=== PATIENT | male | born 1945 | race Caucasian/White ===

== ENCOUNTER 2016-11-18 14:18 | Emergency (ER) | payer MEDICARE ==
[2016-11-18 14:30] VITALS: TEMP 98.4
[2016-11-18 16:46] LABS: Basophils % (A) 0 %; CH 31.3; CHCM 33.8; Eosinophils # (A) 0.2 k/uL (0-0.7); Eosinophils % (A) 2 %; HCT 54.5 % (39.0-53.0); HGB 18.1 gm/dL (13.0-17.5); Luc # (Auto) 0.25; Luc % (Auto) 2; Lymphocytes # (A) 1.1 k/uL (1.0-4.8); Lymphocytes % (A) 10 %; MCHC 33.3 g/dL (31.0-37.0); MCV 93.1 fL (80.0-100.0); Mean Platelet Volume 7.3; Monocytes # (A) 0.8 k/uL (0-1.0); Monocytes % (A) 7 %; Neutrophils # (A) 8.6 k/uL (1.3-7.7); Neutrophils % (A) 79 %; RBC 5.85 m/uL (4.30-5.90); RDW 15.4 % (11.5-15.5); WBC 10.9 k/uL (3.8-10.6); WBC (Perox) 10.87
--- NOTE | 2016-11-18 16:50 | ED ---
Extremity Problem HPI - General Chief complaint: Extremity Problem,Nontraumatic Stated complaint: Swollen Rt Leg Time Seen by Provider: 11/18/16 15:59 Source: patient, RN notes reviewed Mode of arrival: ambulatory Limitations: no limitations - History of Present Illness Initial comments: 70-year-old male presents emergency Department with chief complaint of right leg pain and swelling. Patient states that he bumped it on an object few days ago but he said some increased swelling and slight brawny redness to his lower leg. Patient states he has minimal discomfort no history of CHF does not take any current water pills. Patient states she is worried about possible infection or blood clot. He states he's been traveling back and forth from [facility] and has had some prolonged sitting. Patient denies chest pain, shortness breath, fever, chills, paresthesias - Related Data Home Medications Medication Instructions Recorded Confirmed Allopurinol [Zyloprim] 100 mg PO DAILY 11/10/13 11/18/16 Etanercept [Enbrel] 50 mg SQ VILLAFUERTE 11/10/13 11/18/16 Losartan-Hctz 50-12.5 mg [Hyzaar 1 tab PO BID 11/10/13 11/18/16 50-12.5] Tamsulosin HCl [Flomax] 0.4 mg PO BID 11/10/13 11/18/16 Metoprolol Succinate [Toprol XL] 50 mg PO DAILY 11/18/16 11/18/16 Warfarin Sodium [Coumadin] 10 mg PO FR 11/18/16 11/18/16 Warfarin [Coumadin] 5 mg PO SUMOTUWETHSA 11/18/16 11/18/16 Previous Rx's Medication Instructions Recorded Cephalexin [Keflex] 500 mg PO Q6HR #28 cap 11/18/16 Allergies Allergy/AdvReac Type Severity Reaction Status Date / Time Penicillins Allergy Rash/Hives Verified 11/18/16 16:28 Review of Systems ROS Statement: Those systems with pertinent positive or pertinent negative responses have been documented in the HPI. ROS Other: All systems not noted in ROS Statement are negative. Past Medical History Past Medical History: Hyperlipidemia, Hypertension, Osteoarthritis (OA), Prostate Disorder, Rheumatoid Arthritis (RA), Sleep Apnea/CPAP/BIPAP Additional Past Medical History / Comment(s): heart murmer History of Any Multi-Drug Resistant Organisms: None Reported Past Surgical History: Appendectomy, Cardiac Valve Replacement, Heart Catheterization, Joint Replacement, Orthopedic Surgery Additional Past Surgical History / Comment(s): naldo knee replacement, naldo shoulder rotator cuff, naldo carpal tunnel, naldo endarterectomy, left ankle fusion, Past Anesthesia/Blood Transfusion Reactions: Previous Problems w/ Anesthesia Additional Past Anesthesia/Blood Transfusion Reaction / Comment(s): diff intubation Past Psychological History: No Psychological Hx Reported Smoking Status: Former smoker Past Alcohol Use History: None Reported Past Drug Use History: None Reported - Past Family History Mother Family Medical History: Cancer Brother(s) Family Medical History: Cancer Sister(s) Family Medical History: Cancer General Exam Limitations: no limitations General appearance: alert, in no apparent distress Respiratory exam: Present: normal lung sounds bilaterally. Absent: respiratory distress, wheezes, rales, rhonchi, stridor Cardiovascular Exam: Present: regular rate, normal rhythm, normal heart sounds. Absent: systolic murmur, diastolic murmur, rubs, gallop, clicks Extremities exam: Present: other (Right lower extremity there is a brawny slightly erythematous area noted pedal pulses equal bilaterally patient has no calf tenderness) Skin exam: Present: warm, dry, intact, normal color. Absent: rash Course Vital Signs 11/18/16 14:27 Temperature 98.4 F Pulse Rate 68 Respiratory 18 Rate Blood Pressure 140/69 O2 Sat by Pulse 98 Oximetry Medical Decision Making - Medical Decision Making 68-year-old male presented for right leg swelling, redness. There is very minimal warmth though patient is concerned about infection. She did have an injury to it. There is no evidence of acute DVT. Patient was placed on short course of antibiotics at this time advised to elevate and reduce salt intake. Return parameters were discussed. - Lab Data Result diagrams: 11/18/16 16:35 11/18/16 16:35 Lab Results 11/18/16 11/18/16 11/18/16 Range/Units 16:35 16:35 16:35 WBC 10.9 H (3.8-10.6) k/uL RBC 5.85 (4.30-5.90) m/uL Hgb 18.1 H (13.0-17.5) gm/dL Hct 54.5 H (39.0-53.0) % MCV 93.1 (80.0-100.0) fL MCH 31.0 (25.0-35.0) pg MCHC 33.3 (31.0-37.0) g/dL RDW 15.4 (11.5-15.5) % Plt Count 152 (150-450) k/uL Neutrophils % 79 % Lymphocytes % 10 % Monocytes % 7 % Eosinophils % 2 % Basophils % 0 % Neutrophils # 8.6 H (1.3-7.7) k/uL Lymphocytes # 1.1 (1.0-4.8) k/uL Monocytes # 0.8 (0-1.0) k/uL Eosinophils # 0.2 (0-0.7) k/uL Basophils # 0.0 (0-0.2) k/uL Sodium 139 (137-145) mmol/L Potassium 4.6 (3.5-5.1) mmol/L Chloride 106 (98-107) mmol/L Carbon Dioxide 22 (22-30) mmol/L Anion Gap 11 mmol/L BUN 32 H (9-20) mg/dL Creatinine 1.10 (0.66-1.25) mg/dL Est GFR (MDRD) Af Amer >60 (>60 ml/min/1.73 sqM) Est GFR (MDRD) Non-Af >60 (>60 ml/min/1.73 sqM) Glucose 126 H (74-99) mg/dL Calcium 9.8 (8.4-10.2) mg/dL NT-Pro-B Natriuret Pep 204 pg/mL Disposition Clinical Impression: Cellulitis of right leg, Right leg swelling Disposition: HOME SELF-CARE Condition: Stable Instructions: Cellulitis (ED) Additional Instructions: Please return to the Emergency Department if symptoms worsen or any other concerns. Prescriptions: Cephalexin [Keflex] 500 mg PO Q6HR #28 cap Referrals: Andrea Phan MD [Primary Care Provider] - 1-2 days Time of Disposition: 17:56
[2016-11-18 16:55] LABS: Anion Gap 11 mmol/L; Blood Urea Nitrogen 32 mg/dL (9-20); Calcium 9.8 mg/dL (8.4-10.2); Carbon Dioxide 22 mmol/L (22-30); Chloride 106 mmol/L (98-107); Glucose 126 mg/dL (74-99); Non-African American GFR(MDRD) >60 (>60 ml/min/1.73 sqM); Potassium 4.6 mmol/L (3.5-5.1); Sodium 139 mmol/L (137-145)
--- NOTE | 2016-11-18 17:44 | US ---
EXAMINATION TYPE: US venous doppler duplex LE RT DATE OF EXAM: 11/18/2016 5:35 PM COMPARISON: Prior in PACS CLINICAL HISTORY: Swelluing right leg. Takes blood thinners. No history of DVT SIDE PERFORMED: Right TECHNIQUE: The lower extremity deep venous system is examined utilizing real time linear array sonog raj with graded compression, doppler sonography and color-flow sonography. VESSELS IMAGED: External Iliac Vein (EIV) Common Femoral Vein Deep Femoral Vein Greater Saphenous Vein * Femoral Vein Popliteal Vein Small Saphenous Vein * Proximal Calf Veins (* superficial vessels) Right Leg: Negative for DVT IMPRESSION: Negative exam. No evidence of deep venous thrombosis in the right leg.
[2016-11-18 18:06] VITALS: BP 164/79; PULSE 60; RESP 16
== END 2016-11-18 18:05 | disposition home or self-care (01) ==
LOC: EC 14:18
DX: L03.115 Cellulitis of right lower limb (principal); M79.89 Other specified soft tissue disorders; E78.5 Hyperlipidemia, unspecified; I10 Essential (primary) hypertension; M19.90 Unspecified osteoarthritis, unspecified site; M06.9 Rheumatoid arthritis, unspecified; N42.9 Disorder of prostate, unspecified; Z87.891 Personal history of nicotine dependence; Z79.01 Long term (current) use of anticoagulants; Z79.899 Other long term (current) drug therapy; Z88.0 Allergy status to penicillin
CPT/HCPCS: 36415; 80048; 83880; 85025; 99284

== ENCOUNTER → 2019-09-01 | Outpatient (CLI) | payer MEDICARE ==
[2019-09-01 10:21] LABS: HCT 48.1 % (39.0-53.0); HGB 15.8 gm/dL (13.0-17.5); MCH 30.3 pg (25.0-35.0); MCHC 32.9 g/dL (31.0-37.0); MCV 92.3 fL (80.0-100.0); Mean Platelet Volume 7.3; Platelet Count 171 k/uL (150-450); Potassium 4.5 mmol/L (3.5-5.1); RBC 5.21 m/uL (4.30-5.90); RDW 14.8 % (11.5-15.5); WBC 5.6 k/uL (3.8-10.6)
== END | disposition home or self-care (01) ==
LOC: LABPAT 09:19
PROVIDERS: ATTEND Internal Medicine Interventional Cardiology
DX: Z01.818 Encounter for other preprocedural examination (principal); R94.39 Abnormal result of other cardiovascular function study
CPT/HCPCS: 80051; 82565; 84520; 85027; 87635

== ENCOUNTER 2019-09-03 07:58 | Day surgery (SDC) | payer MEDICARE ==
[2019-09-02 08:39] VITALS: BMI 39.6
[~2019-09-03 07:58] MED LIST: ALPRAZolam 0.25 MG TAB PO PRN; ALPRAZolam 0.5 MG TAB PO PRN; ASPIRIN 325 MG TAB PO ONE; ATORVASTATIN 80 MG TAB PO ONE; NITROGLYCERIN SL TABS 0.4 MG TAB SUBLINGUAL PRN; SODIUM CHLORIDE 0.9% 1,000 ML in EMPTY BAG 1 BAG IV ONE
[2019-09-03 08:37] VITALS: RESP 16; TEMP 98.1
[2019-09-03] MEDS ORDERED: SODIUM CHLORIDE 0.9% 1,000 ML IV ONE (08:37)
[2019-09-03 09:13] LABS: INR 1.2 (<1.2); Prothrombin Time 12.4 sec (9.0-12.0)
[2019-09-03] MEDS ORDERED: MIDAZOLAM 2 MG/2 ML VIAL IV ONE (09:21)
[2019-09-03] MEDS ORDERED: LIDOCAINE 1% INJ 10MG/ML (20 ML MDV) SQ ONE (09:25)
[2019-09-03] MEDS: VERAPAMIL SYRINGE (5 MG/10 ML) INTRAARTER ONE ×2 (09:30→09:57)
[2019-09-03] MEDS ORDERED: HEPARIN SODIUM 1,000 UN/ML (10ML VL) IV ONE (09:34)
[2019-09-03] MEDS ORDERED: IOPAMIDOL-370 100ML BTL INJ ONE ×2 (09:50→09:57)
[2019-09-03] MEDS ORDERED: WARFARIN 2 MG TAB PO STA (10:27)
[2019-09-03] MEDS ORDERED: SODIUM CHLORIDE 0.9% 1,000 ML IV SCH (10:30)
--- NOTE | 2019-09-03 11:20 | CC ---
CARDIAC CATHETERIZATION REPORT DATE OF SERVICE: 09/03/2019. PROCEDURE PERFORMED: Coronary angiography. PERFORMED BY: Dr. Dae Hernandez. SEDATION: Moderate conscious sedation time was 37 minutes. Patient was administered Versed. His oxygen saturation, hemodynamics and EKG were monitored closely. CLINICAL INFORMATION: Mr. Jonh Worthington is a 73-year-old morbidly obese gentleman with history of hypertension, hyperlipidemia, and bilateral carotid endarterectomy. In 2013, he underwent aortic valve replacement for aortic stenosis at [facility]. He is going for a back surgery and prior to that, Lexiscan stress test revealed inferolateral moderate-sized defect suggestive of ischemia. Therefore, he was advised coronary angiography after due discussion regarding risks, benefits, and options. PROCEDURE NOTE: Under local anesthesia and strict precautions, a 6-Upper Sorbian sheath was placed in the right radial artery. I used a JR4 and JL3.5 catheter and with this I performed coronary angiography. Because I had difficulty getting into the right coronary artery, which was a small nondominant vessel, I tried a Johnny as well as an AR1 catheter without much success. LV pressures were not obtained since patient has a bioprosthetic aortic valve. The patient tolerated procedure well. The sheath was taken out and TR band applied as per protocol with good hemostasis. Saturation of the fingers of the right hand was more than 93%. The patient was sent to the room in stable condition. He will be discharged later on today. CORONARY ANGIOGRAPHY FINDINGS: RIGHT CORONARY ARTERY: This is a nondominant vessel with a limited amount of myocardium being supplied by it. I have had some subselective images, but no selective injection was performed. This vessel comes from somewhat of an ectopic location and I did not do a selective angiogram, but the vessel is small, inconsequential with limited amount of myocardium being supplied by it. LEFT MAIN CORONARY ARTERY: Short patent vessel. No significant disease. Bifurcates into LAD and circumflex. LEFT ANTERIOR DESCENDING CORONARY ARTERY: Good caliber vessel, gives off 2 good-sized diagonal branches and then runs all the way to the apex supplying a sizable amount of myocardium. No significant disease. Has minor irregularities throughout. LEFT POSTERIOR CIRCUMFLEX CORONARY ARTERY: This is a small obtuse marginal proximally almost like a ramus. The second obtuse marginal of a good caliber had 30 to 35% narrowing and then distally it bifurcates into PDA, PLV, and an additional smaller branch. No significant disease is noted in the circumflex system which has only minor diffuse irregularities and is a dominant system. FINAL IMPRESSION: This patient's right coronary artery is small, nondominant, was not selectively injected hyper and is inconsequential and supplies a limited amount of myocardium based on a cardiac cath from 2013. The left system has minor irregularities. No significant disease. He has a dominant circumflex. No significant disease. The LAD is free of significant disease. RECOMMENDATIONS: This patient can go ahead with the proposed back surgery. He still remains at a high risk given his morbid obesity, hypertension, previous aortic valve replacement, but he does not have any significant obstructive CAD. Advised cautious fluid administration and optimal BP control perioperatively. He can go ahead with the operation as scheduled. I will see him in the office next week. He will be discharged later on today. MMODL / IJN: [id number] /
[2019-09-03 17:11] VITALS: PULSE 60
[2019-09-03 17:13] VITALS: BP 142/68
== END 2019-09-03 16:08 | disposition home or self-care (01) ==
LOC: CATHCVL 07:58
PROVIDERS: ATTEND Internal Medicine Interventional Cardiology
DX: I20.0 Unstable angina (principal); R94.39 Abnormal result of other cardiovascular function study; I10 Essential (primary) hypertension; I48.91 Unspecified atrial fibrillation; G47.33 Obstructive sleep apnea (adult) (pediatric); E78.5 Hyperlipidemia, unspecified; E78.00 Pure hypercholesterolemia, unspecified; E66.01 Morbid (severe) obesity due to excess calories; F17.210 Nicotine dependence, cigarettes, uncomplicated; M48.061 Spinal stenosis, lumbar region without neurogenic claudication; M06.9 Rheumatoid arthritis, unspecified; Z95.2 Presence of prosthetic heart valve; Z79.01 Long term (current) use of anticoagulants; Z79.899 Other long term (current) drug therapy; Z68.41 Body mass index [BMI] 40.0-44.9, adult; Z88.0 Allergy status to penicillin; Z88.1 Allergy status to other antibiotic agents; Z82.49 Family history of ischemic heart disease and other diseases of the circulatory system
CPT/HCPCS: 93454; 85610; C1769; C1894; J2250; J2001; J1644; Q9967

== ENCOUNTER → 2021-09-12 | Outpatient (CLI) | payer MEDICARE | END | disposition home or self-care (01) | LOC: LABWHC1 09:47 | PROVIDERS: ATTEND Internal Medicine | DX: Z20.822 Contact with and (suspected) exposure to COVID-19 (principal); J02.9 Acute pharyngitis, unspecified | CPT/HCPCS: U0003; C9803 ==

== ENCOUNTER → 2022-01-30 | Outpatient (CLI) | payer MEDICARE ==
--- NOTE | 2022-01-31 14:13 | MR ---
EXAMINATION TYPE: MR Prostate wo/w con DATE OF EXAM: 01/30/2022 7:55 AM COMPARISON: None. CLINICAL INDICATION:Male, 76 years old with history of R97.20 elevated PSA; TECHNIQUE: Multi-planar, multi-sequence imaging of the pelvis is performed prior to and following the uncomplicated administration of bolus intravenous gadolinium. CONTRAST: 13 Gadavist Interpretive Criteria: PI-RADS v2.1 SERUM PSA: 6.2 on 01/23/2022 SURGICAL PATHOLOGY: No data available. FINDINGS: Prostatic dimensions: 6.0 x 5.3 x 4.6 cm. Ellipsoid Volume:76.59 (PSA density=0.08 ng/mL/mL) CENTRAL GLAND (Central and Transition Zones/CZ+TZ): Multiple bilateral, heterogenous appearing hypertrophic stromal nodules, without suspicious lesion. M edian lobe hypertrophy with protrusion into the base of the bladder. (PI-RADS 2) PERIPHERAL ZONE (PZ): Bilateral linear, indistinct wedgelike areas of low ADC, and low T2 signal, No evidence of masslike a bnormality, or localized perfusional hypervascularity, to further suggest a focus of clinically signi ficant prostate cancer. (PI-RADS 2) SEMINAL VESICLES (SV): Symmetric, areas of high T1 signal within the left seminal vesicle likely secondary from hemorrhage a nd/or proteinaceous contents. PERIPROSTATIC TISSUES: Unremarkable. LYMPH NODES: No enlarged pelvic lymph node. Nonenlarged right epicardial lymph node measuring up to 9 mm in short axis. REMAINING PELVIS: Mild urinary bladder wall thickening anteriorly bilaterally likely secondary to partial underdistenti on. Trabeculated bladder hess with bladder diverticula most pronounced on the left. No abnormal free or organized intrapelvic fluid collection. No pathologic bowel dilation or mural thickening. OSSEOUS STRUCTURES: No suspicious osseous abnormality. Right perilabral cysts along the right superior acetabulum likely secondary to underlying labral tear . Partially visualized susceptibility artifact from fixation hardware IMPRESSION: 1. No specific features for high-risk prostate cancer. Maximum PI-RADS score: 2. 2. Moderate BPH, estimated gland volume 79 mL. 3. No suspicious osseous lesion. No lymphadenopathy. 4. Trabeculations of the bladder wall and bladder diverticula likely secondary to chronic bladder out let obstruction.
== END | disposition home or self-care (01) ==
LOC: RADMRIMAIN 06:31
PROVIDERS: ATTEND Urology
DX: N40.0 Benign prostatic hyperplasia without lower urinary tract symptoms (principal); N32.89 Other specified disorders of bladder
CPT/HCPCS: 72197; A9585

== ENCOUNTER 2022-08-19 08:40 | Day surgery (SDC) | payer MEDICARE ==
[2022-08-19 09:04] VITALS: TEMP 98.4
[2022-08-19] MEDS ORDERED: LACTATED RINGERS 1,000 ML IV ONE (09:15)
[2022-08-19] MEDS ORDERED: LIDOCAINE 1% (10MG/ML) FOR IV START INTRADERMA ONE (09:15)
[2022-08-19 09:39] LABS: INR 2.6 (<1.2); Prothrombin Time 25.1 sec (9.0-12.0)
[2022-08-19 09:46] LABS: Calcium 9.6 mg/dL (8.4-10.2); Potassium 4.6 mmol/L (3.5-5.1)
[2022-08-19] MEDS ORDERED: METOPROLOL TARTRATE 5 MG/5 ML VIAL IVP ONE (10:28)
[2022-08-19] MEDS ORDERED: PROPOFOL 10 MG/ML 20 ML VIAL IV ONE (10:28)
[2022-08-19] MEDS ORDERED: LIDOCAINE 2% INJ 20 MG/ML (2 ML VIAL) ONE (10:28)
--- NOTE | 2022-08-19 11:22 | CE ---
CARDIAC ELECTROPHYSIOLOGY REPORT PROCEDURE PERFORMED: Electrical cardioversion. INDICATION: Persistent atrial fibrillation. CLINICAL INFORMATION: Mr. Jonh Worthington is a 76-year-old obese gentleman with history of hypertension, hyperlipidemia, and aortic valve stenosis, status post surgical replacement performed in 2013 and then developed some pannus on the bioprosthetic valve and has been on Coumadin. He also has moderate pulmonary hypertension as well. He went into atrial fibrillation and has been having episodes of increasing shortness of breath. I placed him on amiodarone 200 mg b.i.d. and advised electrical cardioversion. I also switched him from simvastatin to Lipitor. He was brought in for the procedure electively. PROCEDURE NOTE: Under the influence of [id number]-[id number] intravenous anesthetic agent with the attendance of the anesthesiologist, a single synchronized shock was delivered with anterior and posterior patches. He converted to sinus rhythm and remained hemodynamically stable. He was slightly tachycardic and received 5 mg of Lopressor intravenously. He is hemodynamically stable and neurologically intact. This was a successful electrical cardioversion. I expect he will be discharged later on today and I will see him in the office in about a week or so. MMODL / IJN: [id number] /
[2022-08-19 11:41] VITALS: RESP 16
[2022-08-19 12:06] VITALS: BP 131/65; PULSE 89
== END 2022-08-19 12:26 | disposition home or self-care (01) ==
LOC: OR 08:40
PROVIDERS: ATTEND Internal Medicine Interventional Cardiology
DX: I48.19 Other persistent atrial fibrillation (principal)
CPT/HCPCS: 92960; 80048; 85610; J2704; J2001

== ENCOUNTER 2022-09-27 09:32 | Emergency (ER) | payer MEDICARE ==
[2022-09-27 09:42] VITALS: RESP 18; TEMP 98.2
--- NOTE | 2022-09-27 10:02 | ED ---
Extremity Problem HPI - General Chief complaint: Extremity Problem,Nontraumatic Stated complaint: R leg soreness Time Seen by Provider: 09/27/22 09:44 Source: patient Mode of arrival: ambulatory Limitations: no limitations - History of Present Illness Initial comments: Patient is an 86-year-old male with past medical history significant for A. fib on Coumadin presents to the ED with a chief complaint of leg pain/swelling. Patient states yesterday he noticed swelling, redness, pain on his right lower leg. His states that she is concerned that his blood clot. Denies chest pain, palpitations, shortness of breath. Eyes numbness or weakness of the right lower extremity. Denies any recent antibiotic use. Denies history of MRSA. Denies IVDA. Denies fever. No other complaints. - Related Data Home Medications Medication Instructions Recorded Confirmed Etanercept [Enbrel] 50 mg SQ TH 11/10/13 08/15/22 Tamsulosin HCl [Flomax] 0.4 mg PO BID 11/10/13 08/15/22 Metoprolol Succinate [Toprol XL] 75 mg PO HS 11/18/16 08/15/22 Simvastatin [Zocor] 20 mg PO HS 09/02/19 08/15/22 Warfarin [Coumadin] 2 mg PO SUMOWETHFRSA 09/02/19 08/15/22 Warfarin [Coumadin] 3 mg PO TU 09/02/19 08/15/22 hydroCHLOROthiazide [Hydrodiuril] 25 mg PO DAILY 09/02/19 08/15/22 Amiodarone [Cordarone] 200 mg PO DAILY 08/15/22 08/15/22 HYDROcodone/APAP 7.5-325MG [[place] 1 tab PO Q6HR PRN 08/15/22 08/15/22 7.5-325] Losartan Potassium 100 mg PO QAM 08/15/22 08/15/22 allopurinoL [Zyloprim] 100 mg PO DAILY 08/15/22 08/15/22 amLODIPine [Norvasc] 5 mg PO DAILY 08/15/22 08/15/22 clindamycin HCL 600 mg PO DIRECTED PRN 08/15/22 08/15/22 Previous Rx's Medication Instructions Recorded Cephalexin [Keflex] 500 mg PO Q6HR 7 Days #28 cap 06/09/23 Allergies Allergy/AdvReac Type Severity Reaction Status Date / Time Penicillins Allergy Rash/Hives Verified 09/27/22 09:42 Review of Systems ROS Statement: Those systems with pertinent positive or pertinent negative responses have been documented in the HPI. ROS Other: All systems not noted in ROS Statement are negative. Past Medical History Past Medical History: Atrial Fibrillation, Hyperlipidemia, Hypertension, Musculoskeletal Disorder, Osteoarthritis (OA), Prostate Disorder, Rheumatoid Arthritis (RA), Sleep Apnea/CPAP/BIPAP Additional Past Medical History / Comment(s): heart murmur, uses CPAP History of Any Multi-Drug Resistant Organisms: None Reported Past Surgical History: Appendectomy, Back Surgery, Cardiac Valve Replacement, Heart Catheterization, Joint Replacement, Orthopedic Surgery Additional Past Surgical History / Comment(s): naldo knee replacement, shoulder rotator cuff-unsure which side, naldo carpal tunnel, naldo carotid endarterectomy, left ankle fusion, aortic valve replacement(bovine) Past Anesthesia/Blood Transfusion Reactions: Previous Problems w/ Anesthesia Additional Past Anesthesia/Blood Transfusion Reaction / Comment(s): diff intubation-have to use small tube per spouse Past Psychological History: No Psychological Hx Reported Smoking Status: Former smoker Past Alcohol Use History: None Reported Past Drug Use History: None Reported - Past Family History Mother Family Medical History: Cancer Brother(s) Family Medical History: Cancer Sister(s) Family Medical History: Cancer General Exam Limitations: no limitations General appearance: alert, in no apparent distress Head exam: Present: atraumatic, normocephalic Eye exam: Present: normal appearance Respiratory exam: Present: normal lung sounds bilaterally Cardiovascular Exam: Present: regular rate, normal rhythm GI/Abdominal exam: Present: soft Extremities exam: Present: other (Negative Homans sign. 3+ pitting edema on the right lower extremity, 2+ of the left lower extremity. Redness, warmth, erythema extending from the bottom of the right lower leg up to the knee area and non-circumferential. DP/PT pulses 2+. Strength and sensation of naldo LE intact/equal) Neurological exam: Present: alert, oriented X3 Skin exam: Present: warm, dry Course Vital Signs 09/27/22 09/27/22 09:40 10:46 Temperature 98.2 F 98.2 F Pulse Rate 68 70 Respiratory 18 18 Rate Blood Pressure 162/81 148/82 O2 Sat by Pulse 97 95 Oximetry Medical Decision Making - Medical Decision Making Was pt. sent in by a medical professional or institution ([facility], [employer] HCM DEVELOPER, urgent care, hospital, or correction...) When possible be specific @ -No Did you speak to anyone other than the patient for history (EMS, parent, family, police, friend...)? What history was obtained from this source @ -No Did you review nursing and triage notes (agree or disagree)? Why? @ -I reviewed and agree with nursing and triage notes Were old charts reviewed (outside hosp., previous admission, EMS record, old EKG, old radiological studies, urgent care reports/EKG's, correction records)? Report findings @ -R notes reviewed showing patient on Coumadin. Differential Diagnosis (chest pain, altered mental status, abdominal pain women, abdominal pain men, vaginal bleeding, weakness, fever, dyspnea, syncope, headache, dizziness, GI bleed, back pain, seizure, CVA, palpatations, mental health, musculoskeletal)? @ -DVT, PE, MRSA, sepsis. This is not meant to be an all-inclusive list. EKG interpreted by me (3pts min.). @ -As above X-rays interpreted by me (1pt min.). @ -None done CT interpreted by me (1pt min.). @ -None done U/S interpreted by me (1pt. min.). @ -Doppler ultrasound showed no evidence of DVT. What testing was considered but not performed or refused? (CT, X-rays, U/S, labs)? Why? @ -None What meds were considered but not given or refused? Why? @ -None Did you discuss the management of the patient with other professionals (professionals i.e. , AC, [employer] HCM DEVELOPER, lab, RT, psych nurse, social sciences lecturer, senior hadoop developer, teacher, first aid officer, lining caser)? Give summary @ -No Was smoking cessation discussed for >3mins.? @ -No Was critical care preformed (if so, how long)? @ -No Were there social determinants of health that impacted care today? How? (Homelessness, low income, unemployed, alcoholism, drug addiction, tr ansportation, low edu. Level, literacy, decrease access to med. care, custodial, rehab)? @ -No Was there de-escalation of care discussed even if they declined (Discuss DNR or withdrawal of care, Hospice)? DNR status @ -No What co-morbidities impacted this encounter? (DM, HTN, Smoking, COPD, CAD, Cancer, CVA, ARF, Chemo, Hep., AIDS, mental health diagnosis, sleep apnea, morbid obesity)? @ -None Was patient admitted / discharged? Hospital course, mention meds given and route, prescriptions, significant lab abnormalities, going to OR and other pertinent info. @ -Discharge. Labs show no significant white count. Coumadin therapeutic. Ultrasound showed evidence of DVT. Pt will be covered for cellulitis with Keflex. Vital signs stable at discharge. Undiagnosed new problem with uncertain prognosis? @ -No Drug Therapy requiring intensive monitoring for toxicity (Heparin, Nitro, Insulin, Cardizem)? @ -No Were any procedures done? @ -No Diagnosis/symptom? @ -Leg swelling, cellulitis Acute, or Chronic, or Acute on Chronic? @ -Acute Uncomplicated (without systemic symptoms) or Complicated (systemic symptoms)? @ -default Side effects of treatment? @ -No Exacerbation, Progression, or Severe Exacerbation? @ -No Poses a threat to life or bodily function? How? (Chest pain, [place], AL, pneumonia, PE, COPD, DKA, ARF, appy, cholecystitis, CVA, Diverticulitis, Homicidal, Suicidal, threat to staff... and all critical care pts) @ -No - Lab Data Result diagrams: 09/27/22 10:15 09/27/22 10:15 Lab Results 09/27/22 09/27/22 09/27/22 Range/Units 10:15 10:15 10:15 WBC 8.3 (3.8-10.6) k/uL RBC 5.25 (4.30-5.90) m/uL Hgb 16.0 (13.0-17.5) gm/dL Hct 48.6 (39.0-53.0) % MCV 92.5 (80.0-100.0) fL MCH 30.4 (25.0-35.0) pg MCHC 32.9 (31.0-37.0) g/dL RDW 14.5 (11.5-15.5) % Plt Count 143 L (150-450) k/uL MPV 8.0 Neutrophils % 76 % Lymphocytes % 11 % Monocytes % 8 % Eosinophils % 2 % Basophils % 1 % Neutrophils # 6.3 (1.3-7.7) k/uL Lymphocytes # 0.9 L (1.0-4.8) k/uL Monocytes # 0.7 (0-1.0) k/uL Eosinophils # 0.2 (0-0.7) k/uL Basophils # 0.0 (0-0.2) k/uL PT 27.3 H (9.0-12.0) sec INR 2.8 H (<1.2) APTT 34.2 H (22.0-30.0) sec Sodium 138 (137-145) mmol/L Potassium 4.6 (3.5-5.1) mmol/L Chloride 106 (98-107) mmol/L Carbon Dioxide 28 (22-30) mmol/L Anion Gap 4 mmol/L BUN 25 H (9-20) mg/dL Creatinine 1.06 (0.66-1.25) mg/dL Est GFR (CKD-EPI)AfAm 78 (>60 ml/min/1.73 sqM) Est GFR (CKD-EPI)NonAf 67 (>60 ml/min/1.73 sqM) Glucose 115 H (74-99) mg/dL Plasma Lactic Acid Kirk (0.7-2.0) mmol/L Calcium 9.2 (8.4-10.2) mg/dL Total Bilirubin 1.5 H (0.2-1.3) mg/dL AST 24 (17-59) U/L ALT 15 (4-49) U/L Alkaline Phosphatase 78 (38-126) U/L Total Protein 6.3 (6.3-8.2) g/dL Albumin 3.6 (3.5-5.0) g/dL 09/27/22 Range/Units 10:15 WBC (3.8-10.6) k/uL RBC (4.30-5.90) m/uL Hgb (13.0-17.5) gm/dL Hct (39.0-53.0) % MCV (80.0-100.0) fL MCH (25.0-35.0) pg MCHC (31.0-37.0) g/dL RDW (11.5-15.5) % Plt Count (150-450) k/uL MPV Neutrophils % % Lymphocytes % % Monocytes % % Eosinophils % % Basophils % % Neutrophils # (1.3-7.7) k/uL Lymphocytes # (1.0-4.8) k/uL Monocytes # (0-1.0) k/uL Eosinophils # (0-0.7) k/uL Basophils # (0-0.2) k/uL PT (9.0-12.0) sec INR (<1.2) APTT (22.0-30.0) sec Sodium (137-145) mmol/L Potassium (3.5-5.1) mmol/L Chloride (98-107) mmol/L Carbon Dioxide (22-30) mmol/L Anion Gap mmol/L BUN (9-20) mg/dL Creatinine (0.66-1.25) mg/dL Est GFR (CKD-EPI)AfAm (>60 ml/min/1.73 sqM) Est GFR (CKD-EPI)NonAf (>60 ml/min/1.73 sqM) Glucose (74-99) mg/dL Plasma Lactic Acid Kirk 1.2 (0.7-2.0) mmol/L Calcium (8.4-10.2) mg/dL Total Bilirubin (0.2-1.3) mg/dL AST (17-59) U/L ALT (4-49) U/L Alkaline Phosphatase (38-126) U/L Total Protein (6.3-8.2) g/dL Albumin (3.5-5.0) g/dL Disposition Clinical Impression: Cellulitis Disposition: HOME SELF-CARE Condition: Good Additional Instructions: Please return to the Emergency Department if symptoms worsen or any other concerns. Prescriptions: Cephalexin [Keflex] 500 mg PO Q6HR 7 Days #28 cap Is patient prescribed a controlled substance at d/c from ED?: No Referrals: Derik Lemos MD [Primary Care Provider] - 1-2 days Decision Time: 11:20
[2022-09-27 10:35] LABS: INR 2.8 (<1.2); Partial Thromboplastin Time 34.2 sec (22.0-30.0); Prothrombin Time 27.3 sec (9.0-12.0)
[2022-09-27 10:37] LABS: ALT 15 U/L (4-49); AST 24 U/L (17-59); African American GFR (CKD) 78 (>60 ml/min/1.73 sqM); Albumin 3.6 g/dL (3.5-5.0); Alkaline Phosphatase 78 U/L (38-126); Anion Gap 4 mmol/L; Blood Urea Nitrogen 25 mg/dL (9-20); Calcium 9.2 mg/dL (8.4-10.2); Carbon Dioxide 28 mmol/L (22-30); Chloride 106 mmol/L (98-107); Glucose 115 mg/dL (74-99); Non-African American GFR(CKD) 67 (>60 ml/min/1.73 sqM); Potassium 4.6 mmol/L (3.5-5.1); Sodium 138 mmol/L (137-145); Total Bilirubin 1.5 mg/dL (0.2-1.3); Total Protein 6.3 g/dL (6.3-8.2)
[2022-09-27 10:49] LABS: Basophils % (A) 1 %; Eosinophils # (A) 0.2 k/uL (0-0.7); Eosinophils % (A) 2 %; HCT 48.6 % (39.0-53.0); Lymphocytes # (A) 0.9 k/uL (1.0-4.8); Lymphocytes % (A) 11 %; MCH 30.4 pg (25.0-35.0); MCHC 32.9 g/dL (31.0-37.0); MCV 92.5 fL (80.0-100.0); Monocytes # (A) 0.7 k/uL (0-1.0); Monocytes % (A) 8 %; Neutrophils # (A) 6.3 k/uL (1.3-7.7); Neutrophils % (A) 76 %; Platelet Count 143 k/uL (150-450); RBC 5.25 m/uL (4.30-5.90); RDW 14.5 % (11.5-15.5); WBC 8.3 k/uL (3.8-10.6)
--- NOTE | 2022-09-27 11:03 | US ---
EXAMINATION TYPE: US venous doppler duplex LE RT DATE OF EXAM: 09/27/2022 10:46 AM COMPARISON: US 2017 CLINICAL INDICATION: Male, 76 years old with history of pain; Right leg pain and swelling, patient on blood thinners SIDE PERFORMED: Right TECHNIQUE: The lower extremity deep venous system is examined utilizing real time linear array sonog raj with graded compression, doppler sonography and color-flow sonography. VESSELS IMAGED: Common Femoral Vein Deep Femoral Vein Greater Saphenous Vein * Femoral Vein Popliteal Vein Small Saphenous Vein * Proximal Calf Veins (* superficial vessels) Right Leg: Appears negative for DVT IMPRESSION: No evidence for DVT within the right lower extremity imaged from the groin to the upper calf.
[2022-09-27 11:46] VITALS: BP 155/84; PULSE 72
== END 2022-09-27 11:54 | disposition home or self-care (01) ==
LOC: EC 09:32
DX: L03.115 Cellulitis of right lower limb (principal); E78.5 Hyperlipidemia, unspecified; I10 Essential (primary) hypertension; I48.91 Unspecified atrial fibrillation; M06.9 Rheumatoid arthritis, unspecified; M19.90 Unspecified osteoarthritis, unspecified site; Z87.891 Personal history of nicotine dependence; Z88.0 Allergy status to penicillin; Z79.01 Long term (current) use of anticoagulants; Z79.899 Other long term (current) drug therapy
CPT/HCPCS: 36415; 80053; 83605; 85025; 85610; 85730; 87040; 99284

== ENCOUNTER 2022-11-07 13:28 | Emergency (ER) | payer MEDICARE ==
[2022-11-07 13:40] VITALS: TEMP 98.3
--- NOTE | 2022-11-07 14:17 | ED ---
Extremity Problem HPI - General Chief complaint: Extremity Problem,Nontraumatic Stated complaint: Both legs leaking clear cellulitis Time Seen by Provider: 11/07/22 14:02 Source: patient, RN notes reviewed Mode of arrival: ambulatory Limitations: no limitations - History of Present Illness Initial comments: This is a 76-year-old male who presents to the emergency department for swelling to the bilateral lower extremities. States that over the last couple of days, his legs have been much more swollen than usual and are now starting to leak clear fluid. Denies any significant pain associated with this. Also denies any fevers or chills. His legs are often discolored and is unsure if this is much worse than normal, however they do feel warmer to him. He was evaluated here a little over a month ago for concerns of an infection and was started on Keflex. However, he was not leaking any fluid at that time. Denies any fevers, chills, sore throat, cough, dyspnea, chest pain, palpitations, abdominal pain, nausea, vomiting, diarrhea, back pain, or headaches. MD Complaint: extremity swelling - Related Data Home Medications Medication Instructions Recorded Confirmed Etanercept [Enbrel] 50 mg SQ TH 11/10/13 08/15/22 Tamsulosin HCl [Flomax] 0.4 mg PO BID 11/10/13 08/15/22 Metoprolol Succinate [Toprol XL] 75 mg PO HS 11/18/16 08/15/22 Simvastatin [Zocor] 20 mg PO HS 09/02/19 08/15/22 Warfarin [Coumadin] 2 mg PO SUMOWETHFRSA 09/02/19 08/15/22 Warfarin [Coumadin] 3 mg PO TU 09/02/19 08/15/22 hydroCHLOROthiazide [Hydrodiuril] 25 mg PO DAILY 09/02/19 08/15/22 Amiodarone [Cordarone] 200 mg PO DAILY 08/15/22 08/15/22 HYDROcodone/APAP 7.5-325MG [Constantia 1 tab PO Q6HR PRN 08/15/22 08/15/22 7.5-325] Losartan Potassium 100 mg PO QAM 08/15/22 08/15/22 allopurinoL [Zyloprim] 100 mg PO DAILY 08/15/22 08/15/22 amLODIPine [Norvasc] 5 mg PO DAILY 08/15/22 08/15/22 clindamycin HCL 600 mg PO DIRECTED PRN 08/15/22 08/15/22 Previous Rx's Medication Instructions Recorded Cephalexin [Keflex] 500 mg PO Q6HR 7 Days #28 cap 09/27/22 Cephalexin [Keflex] 500 mg PO Q6HR 7 Days #28 cap 11/07/22 Furosemide [Lasix] 40 mg PO DAILY 7 Days #7 tablet 11/07/22 Allergies Allergy/AdvReac Type Severity Reaction Status Date / Time Penicillins Allergy Rash/Hives Verified 11/07/22 13:38 Review of Systems ROS Statement: Those systems with pertinent positive or pertinent negative responses have been documented in the HPI. ROS Other: All systems not noted in ROS Statement are negative. Past Medical History Past Medical History: Atrial Fibrillation, Hyperlipidemia, Hypertension, Musculoskeletal Disorder, Osteoarthritis (OA), Prostate Disorder, Rheumatoid Arthritis (RA), Sleep Apnea/CPAP/BIPAP Additional Past Medical History / Comment(s): heart murmur, uses CPAP History of Any Multi-Drug Resistant Organisms: None Reported Past Surgical History: Appendectomy, Back Surgery, Cardiac Valve Replacement, Heart Catheterization, Joint Replacement, Orthopedic Surgery Additional Past Surgical History / Comment(s): naldo knee replacement, shoulder rotator cuff-unsure which side, naldo carpal tunnel, naldo carotid endarterectomy, left ankle fusion, aortic valve replacement(bovine) Past Anesthesia/Blood Transfusion Reactions: Previous Problems w/ Anesthesia Additional Past Anesthesia/Blood Transfusion Reaction / Comment(s): diff intubation-have to use small tube per spouse Past Psychological History: No Psychological Hx Reported Smoking Status: Former smoker Past Alcohol Use History: None Reported Past Drug Use History: None Reported - Past Family History Mother Family Medical History: Cancer Brother(s) Family Medical History: Cancer Sister(s) Family Medical History: Cancer General Exam Limitations: no limitations General appearance: alert, in no apparent distress Head exam: Present: atraumatic, normocephalic, normal inspection Respiratory exam: Present: normal lung sounds bilaterally. Absent: respiratory distress, wheezes, rales, rhonchi, stridor Cardiovascular Exam: Present: regular rate, normal rhythm, normal heart sounds. Absent: systolic murmur, diastolic murmur, rubs, gallop, clicks Extremities exam: Present: other (3+ pitting edema and weeping to the bilateral lower extremities. Venous stasis changes bilaterally with increased heat. Clear drainage from the bilateral legs, worse on the right.) Neurological exam: Present: alert, oriented X3, CN II-XII intact Psychiatric exam: Present: normal affect, normal mood Course Vital Signs 11/07/22 11/07/22 13:38 16:27 Temperature 98.3 F Pulse Rate 76 68 Respiratory 16 18 Rate Blood Pressure 134/67 159/71 O2 Sat by Pulse 93 L 95 Oximetry Medical Decision Making - Medical Decision Making This is a 76-year-old male who presents to the emergency department for swelling to the bilateral lower extremities. Was pt. sent in by a medical professional or institution? @ -No Did you speak to anyone other than the patient for history? @ -No Did you review nursing and triage notes? @ -Yes, and I agree, it is accurate with regards to the patient's symptoms. Were old charts reviewed? @ -No Differential Diagnosis? @ -Differential Leg Swelling: Cellullitis, Gout, DVT, PVD, arterial insufficiency, congestive heart failure, compartment syndrome, venous stasis changes, thrombophlebitis, contact dermatit is, necrotizing fasciitis, septic arthritis, this is not meant to be an all- inclusive list. EKG interpreted by me (3pts min.)? @ -Not obtained X-rays interpreted by me (1pt min.)? @ -X-ray of the bilateral feet and tib-fib obtained. My interpretation identifies no evidence of subcutaneous gas formation. CT interpreted by me (1pt min.)? @ -Not obtained U/S interpreted by me (1pt. min.)? @ -Not obtained What testing was considered but not performed? (CT, X-rays, U/S, labs)? Why? @ -None What meds were considered but not given? Why? @ -None Did you discuss the management of the patient with other professionals? @ -No Did you reconcile home meds? @ -No Was smoking cessation discussed for >3mins.? @ -No Was critical care preformed (if so, how long)? @ -No Were there social determinants of health that impacted care today? How? (Homelessness, low income, unemployed, alcoholism, drug addiction, t ransportation, low edu. Level, literacy, decrease access to med. care, nursing home, rehab)? @ -No Was there de-escalation of care discussed even if they declined? (Discuss DNR or withdrawal of care, Hospice)? @ -No What co-morbidities impacted this encounter? (DM, HTN, Smoking, COPD, CAD, Cancer, CVA, Hep., AIDS, mental health diagnosis, sleep apnea, morbid obesity)? @ -A-fib - on Coumadin, morbid obesity Was patient admitted / discharged? @ -Discharged. Lab work obtained and found to be nonactionable. X-ray of the bilateral tib-fib and feet obtained revealing no acute process, including no evidence of subcutaneous gas formation. Patient has venous stasis changes bilaterally, however there does appear to be mildly increased heat. Additionally, he does have active fluid draining from both lower extremities, worse on the right. We'll treat the patient with Keflex for cellulitis as well as Lasix for the swelling. Prescription for both Lasix and Keflex provided with dosing instructions reviewed. Advised to take Lasix in the morning, as it will make him urinate much more frequently. Also educated the patient on keeping his legs elevated. He is otherwise advised to have close follow-up with his primary care provider. Undiagnosed new problem with uncertain prognosis? @ -None Drug Therapy requiring intensive monitoring for toxicity (Heparin, Nitro, Insulin, Cardizem)? @ -None Were any procedures done? @ -None Diagnosis/symptom? @ -Bilateral LE cellulitis, bilateral LE edema Acute, or Chronic, or Acute on Chronic? @ -Acute Uncomplicated (without systemic symptoms) or Complicated (systemic symptoms)? @ -Uncomplicated Side effects of treatment? @ -None Exacerbation, Progression, or Severe Exacerbation] @ -Not applicable Poses a threat to life or bodily function? @ -No Return precautions reviewed in depth, the patient is instructed to return to the emergency department with any new, worsening, or concerning symptoms. Patient verbalized understanding. This case was discussed in detail with the attending ED physician, Dr. Andres. Presentation, findings, and treatment plan discussed in detail as well. - Lab Data Result diagrams: 11/07/22 14:47 11/07/22 14:47 Lab Results 11/07/22 11/07/22 11/07/22 Range/Units 14:47 14:47 14:47 WBC 9.6 (3.8-10.6) k/uL RBC 4.73 (4.30-5.90) m/uL Hgb 14.4 (13.0-17.5) gm/dL Hct 45.0 (39.0-53.0) % MCV 95.1 (80.0-100.0) fL MCH 30.4 (25.0-35.0) pg MCHC 31.9 (31.0-37.0) g/dL RDW 14.5 (11.5-15.5) % Plt Count 137 L (150-450) k/uL MPV 7.5 Neutrophils % 78 % Lymphocytes % 11 % Monocytes % 8 % Eosinophils % 2 % Basophils % 1 % Neutrophils # 7.5 (1.3-7.7) k/uL Lymphocytes # 1.0 (1.0-4.8) k/uL Monocytes # 0.7 (0-1.0) k/uL Eosinophils # 0.2 (0-0.7) k/uL Basophils # 0.0 (0-0.2) k/uL Sodium 139 (137-145) mmol/L Potassium 4.5 (3.5-5.1) mmol/L Chloride 105 (98-107) mmol/L Carbon Dioxide 30 (22-30) mmol/L Anion Gap 4 mmol/L BUN 28 H (9-20) mg/dL Creatinine 1.33 H (0.66-1.25) mg/dL Est GFR (CKD-EPI)AfAm 59 (>60 ml/min/1.73 sqM) Est GFR (CKD-EPI)NonAf 51 (>60 ml/min/1.73 sqM) Glucose 121 H (74-99) mg/dL Plasma Lactic Acid Kirk 1.2 (0.7-2.0) mmol/L Calcium 9.4 (8.4-10.2) mg/dL Total Bilirubin 1.2 (0.2-1.3) mg/dL AST 23 (17-59) U/L ALT 15 (4-49) U/L Alkaline Phosphatase 71 (38-126) U/L C-Reactive Protein <0.5 (<1.0) mg/dL NT-Pro-B Natriuret Pep 1110 pg/mL Total Protein 6.1 L (6.3-8.2) g/dL Albumin 3.4 L (3.5-5.0) g/dL - Radiology Data Radiology results: report reviewed, image reviewed Disposition Clinical Impression: Bilateral leg edema, Bilateral cellulitis of lower leg Disposition: HOME SELF-CARE Instructions (If sedation given, give patient instructions): Cellulitis (ED), Edema (ED) Additional Instructions: Return to the emergency department with any new, worsening, or concerning symptoms. Take the antibiotic as prescribed for 7 days. Take the Lasix once daily for 7 days. Beware that this will make you urinate much more and you should take it in the morning to avoid increased urination at night. Try to keep your legs elevated. You can also wrap them with an Ulices bandage or wear compression stockings to help with the swelling. Follow up with your primary care provider in 1-2 days. Prescriptions: Cephalexin [Keflex] 500 mg PO Q6HR 7 Days #28 cap Furosemide [Lasix] 40 mg PO DAILY 7 Days #7 tablet Is patient prescribed a controlled substance at d/c from ED?: No Referrals: Derik Lemos MD [Primary Care Provider] - 1-2 days
[2022-11-07 14:58] LABS: Basophils % (A) 1 %; Eosinophils # (A) 0.2 k/uL (0-0.7); Eosinophils % (A) 2 %; HGB 14.4 gm/dL (13.0-17.5); Lymphocytes % (A) 11 %; MCH 30.4 pg (25.0-35.0); MCHC 31.9 g/dL (31.0-37.0); MCV 95.1 fL (80.0-100.0); Mean Platelet Volume 7.5; Monocytes # (A) 0.7 k/uL (0-1.0); Monocytes % (A) 8 %; Neutrophils # (A) 7.5 k/uL (1.3-7.7); Neutrophils % (A) 78 %; Platelet Count 137 k/uL (150-450); RBC 4.73 m/uL (4.30-5.90); RDW 14.5 % (11.5-15.5); WBC 9.6 k/uL (3.8-10.6)
--- NOTE | 2022-11-07 15:21 | XR ---
EXAMINATION TYPE: XR foot complete bilateral DATE OF EXAM: 11/07/2022 CLINICAL HISTORY: pain TECHNIQUE: Frontal, lateral and oblique images of the right foot are obtained. COMPARISON: None. FINDINGS: There is no acute fracture/dislocation evident. The joint spaces appear within normal john its. The overlying soft tissue appears unremarkable. IMPRESSION: There is no acute fracture or dislocation. ICD 10 NO FRACTURE, INITIAL EVALUATION EXAMINATION TYPE: XR foot complete bilateral DATE OF EXAM: 11/07/2022 CLINICAL HISTORY: pain TECHNIQUE: Frontal, lateral and oblique images of the left foot are obtained. COMPARISON: None. FINDINGS: There is no acute fracture/dislocation evident. Severe hallux valgus deformity at the firs t metatarsal phalangeal joint with bony erosive change noted. Hammertoe deformities of the second thi rd and fourth digits with underlying subluxation or dislocation noted at each metatarsal phalangeal j oint. Plantar and dorsal calcaneal spur formation. IMPRESSION: 1. No acute fracture seen. As noted there is severe degenerative changes at the first second third an d fourth metatarsal phalangeal joints as discussed above.
--- NOTE | 2022-11-07 15:22 | XR ---
EXAMINATION TYPE: XR tibia fibula bilateral DATE OF EXAM: 11/07/2022 CLINICAL HISTORY: pain TECHNIQUE: AP and lateral images of the bilateral tibia and fibula are obtained. COMPARISON: None. FINDINGS: There is no acute fracture/dislocation evident. The joint spaces appear within normal john its. Chronic bony fragmentation seen about both ankles. Total knee arthroplasty seen bilaterally. Th e overlying soft tissue appears unremarkable. IMPRESSION: There is no acute fracture or dislocation seen. ICD 10 NO FRACTURE, INITIAL EVALUATION
[2022-11-07 15:37] LABS: ALT 15 U/L (4-49); AST 23 U/L (17-59); African American GFR (CKD) 59 (>60 ml/min/1.73 sqM); Albumin 3.4 g/dL (3.5-5.0); Alkaline Phosphatase 71 U/L (38-126); Anion Gap 4 mmol/L; Blood Urea Nitrogen 28 mg/dL (9-20); C Reactive Protein <0.5 mg/dL (<1.0); Calcium 9.4 mg/dL (8.4-10.2); Carbon Dioxide 30 mmol/L (22-30); Chloride 105 mmol/L (98-107); Glucose 121 mg/dL (74-99); Non-African American GFR(CKD) 51 (>60 ml/min/1.73 sqM); Potassium 4.5 mmol/L (3.5-5.1); Sodium 139 mmol/L (137-145); Total Bilirubin 1.2 mg/dL (0.2-1.3); Total Protein 6.1 g/dL (6.3-8.2)
[2022-11-07 15:43] LABS: NT-Pro-B-Type Natriuretic Pept 1110 pg/mL
[2022-11-07 16:28] VITALS: BP 159/71; PULSE 68; RESP 18
== END 2022-11-07 16:29 | disposition home or self-care (01) ==
LOC: EC 13:28
DX: L03.116 Cellulitis of left lower limb (principal); L03.115 Cellulitis of right lower limb; I48.91 Unspecified atrial fibrillation; E78.5 Hyperlipidemia, unspecified; I10 Essential (primary) hypertension; G47.30 Sleep apnea, unspecified; Z87.891 Personal history of nicotine dependence; Z79.01 Long term (current) use of anticoagulants; Z79.899 Other long term (current) drug therapy; Z88.0 Allergy status to penicillin
CPT/HCPCS: 36415; 80053; 83605; 83880; 85025; 86140; 99283

== ENCOUNTER → 2023-02-28 | Outpatient (CLI) | payer MEDICARE ==
--- NOTE | 2023-02-28 08:44 | XR ---
EXAMINATION TYPE: XR chest 2V DATE OF EXAM: 02/28/2023 8:39 AM COMPARISON: Chest radiographs from 11/10/2013 TECHNIQUE: XR chest 2V Frontal and lateral views of the chest. CLINICAL INDICATION:Male, 77 years old with history of R07.9; FINDINGS: Lungs/Pleura: There is no evidence of pleural effusion, focal consolidation, or pneumothorax. Pulmonary vascularity: Unremarkable. Heart/mediastinum: Cardiomediastinal silhouette is enlarged and stable. Atherosclerotic calcificatio ns are seen in the aorta. Musculoskeletal: No acute osseous pathology. Midline sternotomy wires are noted. Degenerative changes of the thoracic spine. Partial visualization of lumbar fusion hardware. IMPRESSION: No acute cardiopulmonary disease/process.
[2023-02-28 10:37] LABS: Appearance,Urine Clear (Clear); Bilirubin,Urine Negative (Negative); Blood,Urine Negative (Negative); Color,Urine Colorless; Glucose,Urine (UA) Negative (Negative); Ketones,Urine Negative (Negative); Leukocyte Esterase,Urine Negative (Negative); Nitrite,Urine Negative (Negative); PH, Urine 5.5 (5.0-8.0); Protein,Urine Negative (Negative); Specific Gravity,Urine 1.007 (1.001-1.035); Urobilinogen,Urine <2.0 mg/dL (<2.0)
[2023-02-28 15:57] LABS: HCT 46.3 % (39.6-50.0); HGB 14.8 g/dL (13.0-17.0); MCH 30.2 pg (27.0-32.0); MCV 94.5 FL (80.0-97.0); Mean Platelet Volume 10.7 FL (9.5-12.2); NRBC Per 100 WBC 0 X 10*3/uL (0.00-0.01); Platelet Count 149 X 10*3/uL (140-440); RDW 13.8 % (11.5-14.5); WBC 6.71 X 10*3/uL (4.50-10.00)
[2023-02-28 16:01] LABS: Blood Urea Nitrogen 27.3 mg/dL (9.0-27.0); Calcium 9.9 mg/dL (8.7-10.3); Carbon Dioxide 28.6 mmol/L (21.6-31.8); Chloride 104 mmol/L (96-109); Glucose 106 mg/dL (70-110); Potassium 5.2 mmol/L (3.5-5.5); Sodium 142 mmol/L (135-145)
== END | disposition home or self-care (01) ==
LOC: LABWHC1 08:18
PROVIDERS: ATTEND Internal Medicine Interventional Cardiology
DX: Z01.811 Encounter for preprocedural respiratory examination (principal); D64.9 Anemia, unspecified; I10 Essential (primary) hypertension; I49.8 Other specified cardiac arrhythmias; R05.9 Cough, unspecified; R73.09 Other abnormal glucose; R30.0 Dysuria; R07.9 Chest pain, unspecified
CPT/HCPCS: 36415; 71046; 80048; 81003; 83036; 85027; 93005

== ENCOUNTER → 2023-05-14 | Outpatient (CLI) | payer MEDICARE ==
--- NOTE | 2023-05-14 12:06 | XR ---
EXAMINATION TYPE: XR Hip Bilateral and AP pelvis DATE OF EXAM: 05/14/2023 11:19 AM CLINICAL INDICATION:Male, 77 years old with history of M54.59 XR HIPS ILAT W/PELVIS; [facility] COMPARISON: None. TECHNIQUE: XR Hip Bilateral and AP pelvis; hip was examined in the frontal and lateral projections an d a AP pelvis. FINDINGS: No evidence for acute process, joint dislocation or significant soft tissue swelling. Osteo phyte formation of the superior acetabulum of the hip with joint space narrowing. Degeneration change s of the spine with osteophyte formation and disc space narrowing. IMPRESSION: 1. No evidence for acute process. 2. Mild to moderate hip osteoarthrosis.
== END | disposition home or self-care (01) ==
LOC: RADXRMAIN 10:48
PROVIDERS: ATTEND Neurological Surgery
DX: M16.0 Bilateral primary osteoarthritis of hip (principal); M54.59 Other low back pain
CPT/HCPCS: 73521

== ENCOUNTER → 2023-08-23 | Outpatient (CLI) | payer MEDICARE ==
--- NOTE | 2023-08-23 10:15 | MR ---
EXAMINATION TYPE: MR lumbar spine wo con DATE OF EXAM: 08/23/2023 COMPARISON: None HISTORY: Low back pain and radiculopathy TECHNIQUE: Multiplanar, multisequence images of the lumbar spine were acquired without IV contrast. Findings: The lumbar vertebral segments are normal in height and alignment is no fracture or subluxation. There is mild to moderate degenerative disease at the T11/T12, T12/L1, and L1/L2 level, there is mild to moderate disc space narrowing and mild spondylosis. There is severe degenerative disease at the L2-3, L3-4, L4-5 and L5-S1 levels where there is severe d isc space narrowing, spondylosis, disc bulge and discogenic endplate changes greatest at the L2-3 lev el. There is a large left lateral disc herniation of the L2-3 disc compromising the left lateral recess a nd neural foramina there is a small central disc protrusion the L3-4 disc Secondary to disc bulge, hypertrophy of the facets and mild thickening of ligamentum flavum, there is a mild to moderate spinal stenosis at the L2-3 level. There is advanced facet arthropathy at the L2-3, L3-4, L4-5 and L5-S1 levels. Secondary to disc degeneration and facet arthropathy, there is multilevel neural foraminal stenosis a s follows, mild at the L1-2, L2-3 and L3-4 levels in the right, moderate to severe at the L4-5 and L5 -S1 levels on the right, mild to moderate at the L1-2 level on the left, severe at the L2-3 and L3-4 and L5-S1 levels on the left.. IMPRESSION: 1. Marked multilevel degenerative indices in the lumbar spine as described above. 2. Large left lateral disc herniation at the L2-3 level as described above. 3. Advanced facet arthropathy throughout the lumbar spine. 4. Mild to moderate spinal stenosis L2-3 level. 5. Multilevel bilateral neural foraminal stenosis, left greater than right as described above.
--- NOTE | 2023-08-25 17:36 | MR ---
EXAMINATION TYPE: MR hip RT wo con DATE OF EXAM: 08/23/2023 10:22 AM CLINICAL INDICATION:Male, 77 years old with history of right hip and back pain. M25.551; [facility], COMPARISON: TECHNIQUE: Multiplanar multi-sequential magnetic resonance imaging of the right hip without contrast. IV Contrast: cc FINDINGS: Marked cartilage degeneration in the right hip, similar to the left hip. Joint/bursal fluid: Normal Acetabular labrum: Intact Muscles/Tendons: Intact The tendons of the gluteal, hamstring, iliopsoas, and adductors are normal an d within normal limits without evidence for edema and are intact. Abductor tendon insertions: Intact Intrapelvic structures: Normal Neurovascular structures: Normal Marrow: The right femoral head demonstrates marginal osteophyte, but otherwise normal morphology and signal characteristics. There is no evidence of fracture or acute process. The sacroiliac joints are not focus of the exam, but as seen, SI joints and pubic symphysis are noted to be unremarkable. Soft tissues: Normal Other: The soft tissues of the pelvis and urinary bladder are unremarkable. No lymphadenopathy is vi sualized. IMPRESSION: 1. No evidence for a right hip fracture, AVN, or bone marrow edema. 2. Moderately severe osteoarthritic changes of the right and left hip.
== END | disposition home or self-care (01) ==
LOC: RADMRIMAIN 08:17
PROVIDERS: ATTEND Neurological Surgery
DX: M16.0 Bilateral primary osteoarthritis of hip (principal); M47.26 Other spondylosis with radiculopathy, lumbar region; M51.16 Intervertebral disc disorders with radiculopathy, lumbar region; M51.26 Other intervertebral disc displacement, lumbar region; M99.73 Connective tissue and disc stenosis of intervertebral foramina of lumbar region; M48.07 Spinal stenosis, lumbosacral region
CPT/HCPCS: 72148

== ENCOUNTER → 2023-10-06 | Outpatient (CLI) | payer MEDICARE ==
--- NOTE | 2023-10-09 00:18 | MR ---
EXAMINATION TYPE: MR hip LT wo con DATE OF EXAM: 10/06/2023 COMPARISON: Prior MRI right hip report August 23, 2023 HISTORY: Left hip pain for 5 months. Standard multiplanar, multisequence MRI departmental protocol Multiplanar, multisequence images of the pelvis focusing on the left hip were acquired without contra st. FINDINGS: Severe symmetric axial joint space loss in both hips is redemonstrated. Moderate spurring i n both hip joints is redemonstrated. Femoral head shapes are maintained bilaterally. No suspicious in crease T2 osseous signal is identified. No serpiginous diminished T1 signal to suggest avascular necr osis is seen. Symmetric small size joint effusions. Mild increased signal greater trochanters bilater ally consistent with insertional tendinosis. No abnormal groin adenopathy is seen. No groin hernia is evident. Muscle bulk is maintained bilaterally. No abnormal bowel dilatation. A few sigmoid colonic diverticula are present. No free fluid in the pel vis is seen. IMPRESSION: 1. Fairly is symmetric severe degenerative change of both hips is redemonstrated as detailed above.
== END | disposition home or self-care (01) ==
LOC: RADMRIMAIN 18:00
PROVIDERS: ATTEND Neurological Surgery
DX: M16.12 Unilateral primary osteoarthritis, left hip (principal)

== ENCOUNTER → 2023-10-17 | Outpatient (CLI) | payer MEDICARE ==
--- NOTE | 2023-10-17 18:45 | US ---
EXAMINATION TYPE: US venous doppler duplex LE BI DATE OF EXAM: 10/17/2023 4:00 PM COMPARISON: Right lower extremity venous ultrasound 09/27/2022, 11/18/2016 CLINICAL INDICATION: Male, 77 years old with history of R60.0 LOCALIZED EDEMA; Edema bilateral legs. History of cellulitis. Patient on coumadin, cardiac valve replacement SIDE PERFORMED: Bilateral TECHNIQUE: The lower extremity deep venous system is examined utilizing real time linear array sonog raj with graded compression, doppler sonography and color-flow sonography. VESSELS IMAGED: Common Femoral Vein Deep Femoral Vein Greater Saphenous Vein * Femoral Vein Popliteal Vein Small Saphenous Vein * Proximal Calf Veins (* superficial vessels) *Technical limitations due to patient's body habitus and edema Grayscale, color doppler, spectral doppler imaging performed of the deep veins of the lower extremiti es. There is normal flow, compressibility, vascular waveforms. Right Leg: No evidence of DVT as visualized Left Leg: No evidence of DVT as visualized IMPRESSION: No visualized deep venous thrombosis of the bilateral lower extremities.
== END | disposition home or self-care (01) ==
LOC: RADUSWWP 15:23
PROVIDERS: ATTEND Internal Medicine
DX: R60.0 Localized edema (principal)
CPT/HCPCS: 93970

== ENCOUNTER 2023-12-25 01:52 | Emergency (ER) | payer MEDICARE ==
[2023-12-25 01:59] VITALS: TEMP 98.7
--- NOTE | 2023-12-25 02:13 | ED ---
Abdominal Pain HPI - General Source: patient, EMS, RN notes reviewed Mode of arrival: EMS Limitations: no limitations <Marifer Nelson - Last Filed: 12/25/23 03:59> <Jonh Duenas - Last Filed: 12/25/23 09:21> - General Chief Complaint: Abdominal Pain Stated Complaint: Right flank pain Time Seen by Provider: 12/25/23 02:09 - History of Present Illness Initial Comments: This is an 78-year-old male presents emergency department via EMS for chief complaint of right upper quadrant abdominal pain with radiation to his right shoulder and through to his back. Patient states that this pain started approximately 2 hours before arrival to the emergency department. Patient denies shortness of breath, chest pain, nausea, vomiting, diarrhea. States that the pain is exacerbated with inspiration and is described as a sharp intermittent pain. Denies dysuria, hematuria, increase in urinary frequency or urgency. (Marifer Nelson) - Related Data Home Medications Medication Instructions Recorded Confirmed Etanercept [Enbrel] 50 mg SQ TH 11/10/13 08/15/22 Tamsulosin HCl [Flomax] 0.4 mg PO BID 11/10/13 08/15/22 Metoprolol Succinate [Toprol XL] 75 mg PO HS 11/18/16 08/15/22 Simvastatin [Zocor] 20 mg PO HS 09/02/19 08/15/22 Warfarin [Coumadin] 2 mg PO SUMOWETHFRSA 09/02/19 08/15/22 Warfarin [Coumadin] 3 mg PO TU 09/02/19 08/15/22 hydroCHLOROthiazide [Hydrodiuril] 25 mg PO DAILY 09/02/19 08/15/22 Amiodarone [Cordarone] 200 mg PO DAILY 08/15/22 08/15/22 HYDROcodone/APAP 7.5-325MG [[place] 1 tab PO Q6HR PRN 08/15/22 08/15/22 7.5-325] Losartan Potassium 100 mg PO QAM 08/15/22 08/15/22 allopurinoL [Zyloprim] 100 mg PO DAILY 08/15/22 08/15/22 amLODIPine [Norvasc] 5 mg PO DAILY 08/15/22 08/15/22 clindamycin HCL 600 mg PO DIRECTED PRN 08/15/22 08/15/22 Previous Rx's Medication Instructions Recorded Cephalexin [Keflex] 500 mg PO Q6HR 7 Days #28 cap 09/27/22 Cephalexin [Keflex] 500 mg PO Q6HR 7 Days #28 cap 11/07/22 Furosemide [Lasix] 40 mg PO DAILY 7 Days #7 tablet 11/07/22 Azithromycin [Zithromax Z Pack] 1 tab PO DIRECTED #6 tab 12/25/23 Allergies Allergy/AdvReac Type Severity Reaction Status Date / Time Penicillins Allergy Rash/Hives Verified 12/25/23 01:58 Review of Systems ROS Other: All systems not noted in ROS Statement are negative. <Marifer Nelson - Last Filed: 12/25/23 03:59> ROS Other: All systems not noted in ROS Statement are negative. <Jonh Duenas - Last Filed: 12/25/23 09:21> ROS Statement: Those systems with pertinent positive or pertinent negative responses have been documented in the HPI. Past Medical History Past Medical History: Atrial Fibrillation, Hyperlipidemia, Hypertension, Musculoskeletal Disorder, Osteoarthritis (OA), Prostate Disorder, Rheumatoid Arthritis (RA), Sleep Apnea/CPAP/BIPAP Additional Past Medical History / Comment(s): heart murmur, uses CPAP History of Any Multi-Drug Resistant Organisms: None Reported Past Surgical History: Appendectomy, Back Surgery, Cardiac Valve Replacement, Heart Catheterization, Joint Replacement, Orthopedic Surgery Additional Past Surgical History / Comment(s): naldo knee replacement, shoulder rotator cuff-unsure which side, naldo carpal tunnel, naldo carotid endarterectomy, left ankle fusion, aortic valve replacement(bovine) Past Anesthesia/Blood Transfusion Reactions: Previous Problems w/ Anesthesia Additional Past Anesthesia/Blood Transfusion Reaction / Comment(s): diff intubation-have to use small tube per spouse Past Psychological History: No Psychological Hx Reported Smoking Status: Former smoker Past Alcohol Use History: None Reported Past Drug Use History: None Reported - Past Family History Mother Family Medical History: Cancer Brother(s) Family Medical History: Cancer Sister(s) Family Medical History: Cancer <Mariefr Nelson - Last Filed: 12/25/23 03:59> General Exam Limitations: no limitations General appearance: alert, in no apparent distress Head exam: Present: atraumatic, normocephalic, normal inspection Eye exam: Present: normal appearance, PERRL, EOMI. Absent: scleral icterus, conjunctival injection, periorbital swelling ENT exam: Present: normal exam, mucous membranes moist Neck exam: Present: normal inspection. Absent: tenderness, meningismus, lymphadenopathy Respiratory exam: Present: normal lung sounds bilaterally. Absent: respiratory distress, wheezes, rales, rhonchi, stridor Cardiovascular Exam: Present: regular rate, normal rhythm, normal heart sounds. Absent: systolic murmur, diastolic murmur, rubs, gallop, clicks GI/Abdominal exam: Present: soft, tenderness (RUQ), normal bowel sounds. Absent: distended, guarding, rigid Extremities exam: Present: normal inspection, full ROM, normal capillary refill. Absent: tenderness, pedal edema, joint swelling, calf tenderness Back exam: Present: normal inspection, tenderness (right thoracic spine) Skin exam: Present: warm, dry, intact, normal color. Absent: rash <Marifer Nelson - Last Filed: 12/25/23 03:59> - General Exam Comments Initial Comments: Visual Physical Exam Vital signs reviewed General: Well-appearing, nontoxic, no acute distress. Head: Normocephalic, atraumatic Eyes: PERRLA, EOMI ENT: Airway patent Chest: Nonlabored breathing Skin: No visual rash, normal skin tone Neuro: Alert and oriented 3 Musculoskeletal: No gross abnormalities (Marifer Nelson) Course Vital Signs 12/25/23 12/25/23 12/25/23 01:54 02:55 03:00 Temperature 98.7 F Pulse Rate 72 64 65 Respiratory 16 16 16 Rate Blood Pressure 159/83 158/73 142/67 O2 Sat by Pulse 98 94 L 94 L Oximetry 12/25/23 12/25/23 12/25/23 04:00 05:06 06:13 Temperature Pulse Rate 67 64 62 Respiratory 16 16 18 Rate Blood Pressure 158/73 145/67 149/79 O2 Sat by Pulse 94 L 94 L 94 L Oximetry 12/25/23 07:32 Temperature Pulse Rate 57 L Respiratory 18 Rate Blood Pressure 113/68 O2 Sat by Pulse 93 L Oximetry Medical Decision Making - Lab Data Result diagrams: 12/25/23 02:40 <Marifer Nelson - Last Filed: 12/25/23 03:59> - Lab Data Result diagrams: 12/25/23 02:40 12/25/23 04:00 <Jonh Duenas N - Last Filed: 12/25/23 09:21> - Medical Decision Making Was pt. sent in by a medical professional or institution ([facility], IT RISK AND ASSURANCE SENIOR MANAGER, urgent care, hospital, or [facility]...) When possible be specific @ -[No] Did you speak to anyone other than the patient for history (EMS, parent, family, police, friend...)? What history was obtained from this source @ -[No] Did you review nursing and triage notes (agree or disagree)? Why? @ -[I reviewed and agree with nursing and triage notes] Were old charts reviewed (outside hosp., previous admission, EMS record, old EKG, old radiological studies, urgent care reports/EKG's, [facility] records)? Report findings @ -[No old charts were reviewed] Differential Diagnosis (chest pain, altered mental status, abdominal pain women, abdominal pain men, vaginal bleeding, weakness, fever, dyspnea, syncope, headache, dizziness, GI bleed, back pain, seizure, CVA, palpatations, mental health, musculoskeletal)? @ -Differential Abdominal Pain Men: Appendicitis, cholecystitis, diverticulosis, ischemic bowel, pancreatitis, hepatitis, UTI, gastroenteritis, AAA, incarcerated hernia, bowel obstruction, constipation, inflammatory bowel, hepatitis, peptic ulcer disease, splenic infarction, perforated viscus, testicular torsion, this is not meant to be an all-inclusive list EKG interpreted by me (3pts min.). @ -completed at 239, sinus rhythm with first-degree AV block, ventricular rate 70, OR interval 276, QTc 407. No acute signs of ischemia. X-rays interpreted by me (1pt min.). @ -[None done] CT interpreted by me (1pt min.). @ -[None done] U/S interpreted by me (1pt. min.). @ -[None done] What testing was considered but not performed or refused? (CT, X-rays, U/S, labs)? Why? @ -[None] What meds were considered but not given or refused? Why? @ -[None] Did you discuss the management of the patient with other professionals (professionals i.e. AC Otto, IT RISK AND ASSURANCE SENIOR MANAGER, lab, RT, psych nurse, social services specialist, wire chief, teacher, k [employer] police officer, special education case manager)? Give summary @ -[No] Was smoking cessation discussed for >3mins.? @ -[No] Was critical care preformed (if so, how long)? @ -[No] Were there social determinants of health that impacted care today? How? (Homelessness, low income, unemployed, alcoholism, drug addiction, transportation, low edu. Level, literacy, decrease access to med. care, correction, rehab)? @ -[No] Was there de-escalation of care discussed even if they declined (Discuss DNR or withdrawal of care, Hospice)? DNR status @ -[No] What co-morbidities impacted this encounter? (DM, HTN, Smoking, COPD, CAD, Cancer, CVA, ARF, Chemo, Hep., AIDS, mental health diagnosis, sleep apnea, morbid obesity)? @ -[None] Was patient admitted / discharged? Hospital course, mention meds given and route, prescriptions, significant lab abnormalities, going to OR and other pertinent info. @ -78-year-old male with abdominal pain. On examination patient is resting comfortably no signs of acute distress, vitals are stable and EKG is in sinus rhythm. Patient does have pain with palpation of the right upper quadrant states that pain is exacerbated with inspiration and the pain radiates into his right shoulder and to his back. Patient is provided with analgesics pending laboratory results and CT imaging. He is in agreement with this plan. Reevaluation after analgesics, patient states that pain has somewhat subsided however is still intermittently present however declines further pain medication at this time. CBC and lactic acid within normal limits. patient is signed out to my attending, Dr. Andres pending CT imaging, labs, and disposition. Undiagnosed new problem with uncertain prognosis? @ -[No] Drug Therapy requiring intensive monitoring for toxicity (Heparin, Nitro, Insulin, Cardizem)? @ -[No] Were any procedures done? @ -[No] Diagnosis/symptom? @ -[default] Acute, or Chronic, or Acute on Chronic? @ -[default] Uncomplicated (without systemic symptoms) or Complicated (systemic symptoms)? @ -[default] Side effects of treatment? @ -[No] Exacerbation, Progression, or Severe Exacerbation? @ -[No] Poses a threat to life or bodily function? How? (Chest pain, USA, OR, pneumonia, PE, COPD, DKA, ARF, appy, cholecystitis, CVA, Diverticulitis, Homicidal, Suicidal, threat to staff... and all critical care pts) @ -[No] (Marifer Nelson) Patient care signed out awaiting CT imaging, CT does not identify a specific cause although there is an infiltrate in the right lower lung field this is confirmed with x-ray. Ultrasound is performed to rule out gallbladder pathology. There is a positive Aguiar sign but otherwise no secondary signs of acute cholecystitis. Patient has normal laboratory testing. We discussed further evaluation including treatment of pulmonary infiltrate and return parameters. Patient is agreeable, pain may be related to pleurisy. Strict return parameters are discussed. (Jonh Duenas) - Lab Data Lab Results 12/25/23 12/25/23 12/25/23 Range/Units 02:40 02:40 04:00 WBC 9.6 (3.8-10.6) k/uL RBC 4.94 (4.30-5.90) m/uL Hgb 14.8 (13.0-17.5) gm/dL Hct 45.7 (39.0-53.0) % MCV 92.5 (80.0-100.0) fL MCH 30.0 (25.0-35.0) pg MCHC 32.4 (31.0-37.0) g/dL RDW 14.6 (11.5-15.5) % Plt Count 115 L (150-450) k/uL MPV 8.6 Neutrophils % 77 % Lymphocytes % 11 % Monocytes % 8 % Eosinophils % 2 % Basophils % 1 % Neutrophils # 7.4 (1.3-7.7) k/uL Lymphocytes # 1.0 (1.0-4.8) k/uL Monocytes # 0.7 (0-1.0) k/uL Eosinophils # 0.2 (0-0.7) k/uL Basophils # 0.1 (0-0.2) k/uL Sodium 135 L (137-145) mmol/L Potassium 4.7 (3.5-5.1) mmol/L Chloride 107 (98-107) mmol/L Carbon Dioxide 26 (22-30) mmol/L Anion Gap 2 mmol/L BUN 33 H (9-20) mg/dL Creatinine 1.15 (0.66-1.25) mg/dL Est GFR (CKD-EPI)AfAm 70 (>60 ml/min/1.73 sqM) Est GFR (CKD-EPI)NonAf 60 (>60 ml/min/1.73 sqM) Glucose 109 H (74-99) mg/dL Plasma Lactic Acid Kirk 1.1 (0.7-2.0) mmol/L Calcium 10.1 (8.4-10.2) mg/dL Total Bilirubin 1.2 (0.2-1.3) mg/dL AST 24 (17-59) U/L ALT 10 (4-49) U/L Alkaline Phosphatase 85 (38-126) U/L Total Protein 6.0 L (6.3-8.2) g/dL Albumin 3.3 L (3.5-5.0) g/dL Amylase 59 (30-110) U/L Lipase 60 (23-300) U/L Urine Color Urine Appearance (Clear) Urine pH (5.0-8.0) Ur Specific [place] (1.001-1.035) Urine Protein (Negative) Urine Glucose (UA) (Negative) Urine Ketones (Negative) Urine Blood (Negative) Urine Nitrite (Negative) Urine Bilirubin (Negative) Urine Urobilinogen (<2.0) mg/dL Ur Leukocyte Esterase (Negative) 12/25/23 Range/Units 04:08 WBC (3.8-10.6) k/uL RBC (4.30-5.90) m/uL Hgb (13.0-17.5) gm/dL Hct (39.0-53.0) % MCV (80.0-100.0) fL MCH (25.0-35.0) pg MCHC (31.0-37.0) g/dL RDW (11.5-15.5) % Plt Count (150-450) k/uL MPV Neutrophils % % Lymphocytes % % Monocytes % % Eosinophils % % Basophils % % Neutrophils # (1.3-7.7) k/uL Lymphocytes # (1.0-4.8) k/uL Monocytes # (0-1.0) k/uL Eosinophils # (0-0.7) k/uL Basophils # (0-0.2) k/uL Sodium (137-145) mmol/L Potassium (3.5-5.1) mmol/L Chloride (98-107) mmol/L Carbon Dioxide (22-30) mmol/L Anion Gap mmol/L BUN (9-20) mg/dL Creatinine (0.66-1.25) mg/dL Est GFR (CKD-EPI)AfAm (>60 ml/min/1.73 sqM) Est GFR (CKD-EPI)NonAf (>60 ml/min/1.73 sqM) Glucose (74-99) mg/dL Plasma Lactic Acid Kirk (0.7-2.0) mmol/L Calcium (8.4-10.2) mg/dL Total Bilirubin (0.2-1.3) mg/dL AST (17-59) U/L ALT (4-49) U/L Alkaline Phosphatase (38-126) U/L Total Protein (6.3-8.2) g/dL Albumin (3.5-5.0) g/dL Amylase (30-110) U/L Lipase (23-300) U/L Urine Color Light Yellow Urine Appearance Clear (Clear) Urine pH 5.0 (5.0-8.0) Ur Specific [place] 1.018 (1.001-1.035) Urine Protein Trace H (Negative) Urine Glucose (UA) Negative (Negative) Urine Ketones Negative (Negative) Urine Blood Negative (Negative) Urine Nitrite Negative (Negative) Urine Bilirubin Negative (Negative) Urine Urobilinogen <2.0 (<2.0) mg/dL Ur Leukocyte Esterase Negative (Negative) Disposition <Marifer Nelson - Last Filed: 12/25/23 03:59> Is patient prescribed a controlled substance at d/c from ED?: No Time of Disposition: 09:21 <Jonh Duenas - Last Filed: 12/25/23 09:21> Clinical Impression: Abdominal pain Disposition: HOME SELF-CARE Condition: Fair Instructions (If sedation given, give patient instructions): Abdominal Pain (ED) Prescriptions: Azithromycin [Zithromax Z Pack] 1 tab PO DIRECTED #6 tab Referrals: Elver Sky MD [Primary Care Provider] - 1-2 days
[2023-12-25] MEDS: MORPHINE SULFATE 2 MG/ML SYRINGE IVP ONE (02:57)
[2023-12-25 03:07] LABS: Basophils # (A) 0.1 k/uL (0-0.2); Basophils % (A) 1 %; Eosinophils # (A) 0.2 k/uL (0-0.7); Eosinophils % (A) 2 %; HCT 45.7 % (39.0-53.0); HGB 14.8 gm/dL (13.0-17.5); Lymphocytes % (A) 11 %; MCHC 32.4 g/dL (31.0-37.0); MCV 92.5 fL (80.0-100.0); Mean Platelet Volume 8.6; Monocytes # (A) 0.7 k/uL (0-1.0); Monocytes % (A) 8 %; Neutrophils # (A) 7.4 k/uL (1.3-7.7); Neutrophils % (A) 77 %; Platelet Count 115 k/uL (150-450); RBC 4.94 m/uL (4.30-5.90); RDW 14.6 % (11.5-15.5); WBC 9.6 k/uL (3.8-10.6)
[2023-12-25 04:26] LABS: Appearance,Urine Clear (Clear); Bilirubin,Urine Negative (Negative); Blood,Urine Negative (Negative); Color,Urine Light Yellow; Glucose,Urine (UA) Negative (Negative); Ketones,Urine Negative (Negative); Leukocyte Esterase,Urine Negative (Negative); Nitrite,Urine Negative (Negative); Protein,Urine Trace (Negative); Specific Gravity,Urine 1.018 (1.001-1.035); Urobilinogen,Urine <2.0 mg/dL (<2.0)
[2023-12-25 04:34] LABS: ALT 10 U/L (4-49); AST 24 U/L (17-59); African American GFR (CKD) 70 (>60 ml/min/1.73 sqM); Albumin 3.3 g/dL (3.5-5.0); Alkaline Phosphatase 85 U/L (38-126); Amylase 59 U/L (30-110); Anion Gap 2 mmol/L; Blood Urea Nitrogen 33 mg/dL (9-20); Calcium 10.1 mg/dL (8.4-10.2); Carbon Dioxide 26 mmol/L (22-30); Chloride 107 mmol/L (98-107); Glucose 109 mg/dL (74-99); Lipase 60 U/L (23-300); Non-African American GFR(CKD) 60 (>60 ml/min/1.73 sqM); Potassium 4.7 mmol/L (3.5-5.1); Sodium 135 mmol/L (137-145); Total Bilirubin 1.2 mg/dL (0.2-1.3)
[2023-12-25] MEDS: KETOROLAC 15 MG/ML 1 ML VIAL IVP STA (06:07)
[2023-12-25 06:15] VITALS: RESP 18
--- NOTE | 2023-12-25 07:41 | CT ---
EXAMINATION TYPE: CT abdomen pelvis w con DATE OF EXAM: 12/25/2023 COMPARISON: NONE HISTORY: 78-year-old male complaining of RUQ pain with radiation to right flank. Denies N/V. Symptoms present x1 hour. TECHNIQUE: Contiguous axial scanning of the abdomen and pelvis following administration of 100 ml Iso bebe 300 IV contrast. Delayed images through the kidneys and coronal/sagittal reconstructions perform ed. CT DLP: 2346.2 mGycm Automated exposure control for dose reduction was used. FINDINGS: The heart is borderline in size. Median sternotomy wires. Dense mitral annular calcificatio ns. At least moderate aortic valvular calcifications noted. Patchy bibasilar opacities. More focal rios bpleural opacity lateral right middle lobe measuring at least 2.6 cm only partially visualized. No pl eural effusion. Lobulated appearance to the liver without focal lesion. Portal venous system is patent. Prominent naldo e duct up to 1 cm but without any distal obstructing lesion or gallbladder hydrops. Adrenal glands, spleen, and pancreas within normal limits. A couple renal cortical cysts on the right measuring 3.0 cm and 1.4 cm. Otherwise, symmetrical uptake and excretion of contrast from both kidneys. No dilated bowel, free fluid, or free air. No mesenteric or retroperitoneal adenopathy. Moderate atherosclerotic calcifications infrarenal abdominal aorta and common iliac arteries. Scattered mild stool. Scattered left-sided colonic diverticulosis greatest in the sigmoid colon. No p ericolonic inflammatory change. Mild circumferential bladder wall thickening. Prostate gland is enlarged measuring up to 4.9 cm wide. There is nodular soft tissue impressing into the base of the bladder suggesting BPH. No abnormal flu id collection in the pelvis or pelvic lymphadenopathy. Bones: Advanced spondylotic change throughout the visualized spine There appears to be some scarring along the posterior soft tissues opposite the L1-L3 levels. Correla te for any prior surgery. Suspect a sebaceous cyst measuring 1.4 cm along the midline posterior thora coabdominal junction. Suspect an additional 2.4 cm sebaceous cyst along the left perineum. Moderate d egenerative change of both hips. IMPRESSION: 1. Patchy bibasilar opacities. Partially visualized opacity at the lateral right middle lobe measurin g at least 2.6 cm. Correlate for any symptoms of possible pneumonia/pneumonitis. Recommend 2-3 week f ollow-up CT of the chest to reassess these findings and survey the remainder of the lungs. 2. Left-sided colonic diverticulosis without evidence for acute diverticulitis. 3. Mild circumferential bladder wall thickening likely chronic bladder wall hypertrophy. Correlate fo r underlying BPH with symptoms and PSA values. 4. Query prior lumbar surgery given apparent scarring in the posterior soft tissues.
--- NOTE | 2023-12-25 08:24 | XR ---
EXAMINATION TYPE: XR chest 2V DATE OF EXAM: 12/25/2023 COMPARISON: 02/28/2023 HISTORY: 78-year-old male right upper quadrant pain TECHNIQUE: PA and lateral views FINDINGS: Median sternotomy wires. Interstitial prominence is unchanged. Patchy retrocardiac opacity and patchy peripheral right basilar opacity are new. No pleural effusion. Heart normal size. IMPRESSION: Focal bibasilar airspace disease. Consider infectious or aspiration pneumonitis. See recommendation o n patient's abdominal CT performed earlier today.
--- NOTE | 2023-12-25 09:02 | US ---
Cyst within the mid right kidney. No hydronephrosis. EXAMINATION TYPE: US gallbladder DATE OF EXAM: 12/25/2023 COMPARISON: CT 2023, US 2012 CLINICAL INDICATION: Male, 78 years old with history of ruq painr TECHNIQUE: Multiple sonographic images of the right upper quadrant are obtained. FINDINGS: EXAM MEASUREMENTS: Liver Length: 16.0 cm Gallbladder Wall: 0.2 cm CBD: 0.8 cm Right Kidney: 10.2 x 4.8 x 4.2 cm Paper Cutting Machine Operator notes:Difficult and limited study due to patient body habitus Pancreas: obscured by overlying midline bowel gas Liver: Limited by attenuating body wall related to body habitus. Limited detail parenchymal assessme nt. Gallbladder: wnl Evidence for sonographic Aguiar's sign: yes CBD: visualized portions dilated Right Kidney: Limited detailed assessment. Hypoechoic to anechoic 3.8cm round area in the medial midp ole. No hydronephrosis. IMPRESSION: 1. Limited due to patient body habitus. 2. Sonographic Aguiar sign is reported positive. This may be due to referred pain. No gallstones are ancillary imaging findings of acute cholecystitis at this time. If further imaging assessment of the gallbladder is desired, HIDA scan can be considered. 3. Bile duct dilated at 8 mm. This may be normal given patient's age. Correlate with alkaline phospha tase and bilirubin levels to exclude biliary obstruction. 4. A 3.8 cm cyst mid right kidney. No hydronephrosis.
[2023-12-25 09:54] VITALS: BP 142/60; PULSE 70
== END 2023-12-25 09:58 | disposition home or self-care (01) ==
LOC: EC 01:52
CPT/HCPCS: 36415; 71046; 74177; 76705; 80053; 81003; 82150; 83605; 83690; 85025; 93005; 96374; 96375; 99284; 99285

== ENCOUNTER → 2024-01-16 | Outpatient (CLI) | payer MEDICARE ==
--- NOTE | 2024-01-16 21:33 | CT ---
EXAMINATION TYPE: CT chest wo con CT DLP: 841 mGycm, Automated exposure control for dose reduction was used. DATE OF EXAM: 01/16/2024 1:43 PM COMPARISON: Chest radiograph 12/25/2023, CT abdomen and pelvis 12/25/2023 CLINICAL INDICATION:Male, 78 years old with history of J18.9 PNEUMONIA; PHH, sob TECHNIQUE: Multiple axial images were obtained through the chest without IV contrast. Lack of IV or o ral contrast limits evaluation of solid and hollow organ viscera. . Coronal and sagittal reformats re viewed. FINDINGS: LUNGS/ PLEURA: No pleural effusion or pneumothorax. Left lower lobe linear scarring and/or atelectasi s. Peripheral right middle lobe 1.5 cm nodular opacity (series 4, image 29). This is decreased in si ze from prior examination when it measured 2.6 cm. AIRWAY: Patent and unremarkable.. HEART: Mildly enlarged. No pericardial effusion. Dense calcification of the aorta valve and annulus. Prominent cardiac desiccation along the LAD and circumflex coronary arteries. MEDIASTINUM: No gross evidence of adenopathy. VASCULATURE: No aortic aneurysm. Moderate atherosclerotic calcification of the aorta and its branche s. MUSCULOSKELETAL: No acute osseous abnormalities. Median sternotomy wires. 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 SOFT TISSUES/LYMPH NODES: Unremarkable. LOWER NECK: Subcentimeter hypodense nodule within the left thyroid lobe. UPPER ABDOMEN: Exophytic right renal 3.3 cm cyst. Similar prominence of the common bile duct measurin g up to 1 cm. IMPRESSION: 1. Decreased size of right middle lobe 1.5 cm nodular opacity. May represent a focal region of pneumo donna/pneumonitis versus focal atelectasis. Follow-up CT chest in 6 months is recommended. 2. Left lower lobe linear atelectasis and/or scarring. [facility], , 01/16/2024 9:30 PM
== END | disposition home or self-care (01) ==
LOC: RADCTMAIN 13:16
PROVIDERS: ATTEND Family Medicine
DX: J18.9 Pneumonia, unspecified organism
CPT/HCPCS: 71250

== ENCOUNTER → 2024-01-29 | Outpatient (CLI) | payer MEDICARE ==
--- NOTE | 2024-01-29 09:28 | NM ---
EXAMINATION TYPE: NM hepatobiliary w EF DATE OF EXAM: 01/29/2024 COMPARISON: NONE CLINICAL INDICATION: Male, 78 years old with history of R10.11 RUQ PAIN; TECHNIQUE: After the intravenous administration of 5.3 mCi Tc 99m Mebrofenin hepatobiliary scintigrap hy is performed. Immediate images post injection. FINDINGS: There is satisfactory initial accumulation of tracer by the liver. The gallbladder is visualized wit hin 8 minutes. The small bowel activity is noted within 60 minutes. At one hour 8 ounces of oral en sure plus is given to mimic CCK and gallbladder ejection fraction is calculated at 82%. IMPRESSION: Increased gallbladder ejection fraction may reflect gallbladder hypercontractile state. [facility], , 01/29/2024 9:25 AM
== END | disposition home or self-care (01) ==
LOC: RADNMMAIN 01-12 06:17
PROVIDERS: ATTEND Family Medicine
DX: J18.9 Pneumonia, unspecified organism (principal)
CPT/HCPCS: 78226

== ENCOUNTER → 2024-03-04 | Outpatient (CLI) | payer MEDICARE ==
[2024-03-04 09:54] LABS: INR 2.5 (<1.2); Partial Thromboplastin Time 34.5 sec (22.0-30.0); Prothrombin Time 24.3 sec (10.0-12.5)
[2024-03-04 16:05] LABS: HCT 43.7 % (39.6-50.0); HGB 13.6 g/dL (13.0-17.0); MCHC 31.1 g/dL (32.0-37.0); MCV 93.2 FL (80.0-97.0); NRBC Per 100 WBC 0 X 10*3/uL (0.00-0.01); Platelet Count 164 X 10*3/uL (140-440); RBC 4.69 X 10*6/uL (4.40-5.60); RDW 15.8 % (11.5-14.5); WBC 6.41 X 10*3/uL (4.50-10.00)
[2024-03-04 16:22] LABS: BUN/Creat Ratio 22.46 Ratio (12.00-20.00); Blood Urea Nitrogen 29.2 mg/dL (9.0-27.0); Chloride 107 mmol/L (96-109); Glucose 112 mg/dL (70-110); Potassium 5.2 mmol/L (3.5-5.5); Sodium 141 mmol/L (135-145)
[2024-03-04 16:23] LABS: ALT 6 U/L (10-49); AST 19 U/L (14-35); Albumin 3.6 g/dL (3.8-4.9); Alkaline Phosphatase 97 U/L (41-126); Calcium 9.2 mg/dL (8.7-10.3); Carbon Dioxide 25.8 mmol/L (21.6-31.8); Globulin 2.4 g/dL (1.6-3.3); Total Bilirubin 0.6 mg/dL (0.3-1.2)
== END | disposition home or self-care (01) ==
LOC: LABPAT 08:28
PROVIDERS: ATTEND Orthopaedic Surgery
DX: Z01.818 Encounter for other preprocedural examination (principal); Z22.322 Carrier or suspected carrier of Methicillin resistant Staphylococcus aureus; R97.20 Elevated prostate specific antigen [PSA]
CPT/HCPCS: 80053; 84153; 85027; 85610; 85730; 86850; 86900; 86901; 87070

== ENCOUNTER 2024-03-09 05:36 | Day surgery (SDC) | payer MEDICARE ==
[~2024-03-09 05:36] MED LIST changes: -ALPRAZolam 0.25 MG TAB PO PRN; -ALPRAZolam 0.5 MG TAB PO PRN; -ASPIRIN 325 MG TAB PO ONE; -ATORVASTATIN 80 MG TAB PO ONE; -NITROGLYCERIN SL TABS 0.4 MG TAB SUBLINGUAL PRN; -SODIUM CHLORIDE 0.9% 1,000 ML in EMPTY BAG 1 BAG IV ONE; +TRANEXAMIC 1,000 MG/100ML-NACL 1,000 MG in SALINE 1 100ML.BAG IVPB PRN
[2024-03-09] MEDS: ACETAMINOPHEN TAB 500 MG TAB PO PRN (06:04)
[2024-03-09] MEDS: GABAPENTIN 300 MG CAP PO PRN (06:04)
[2024-03-09] MEDS: MELOXICAM 7.5 MG TAB PO PRN (06:04)
[2024-03-09] MEDS: LACTATED RINGERS 1,000 ML IV SCH (06:26)
[2024-03-09] MEDS: ONDANSETRON 4 MG/2 ML VIAL IVP STA (06:44)
[2024-03-09] MEDS: DEXAMETHASONE SOD PHOSPHATE 4 MG/ML 1 ML VIAL IVP STA (06:45)
[2024-03-09 06:49] LABS: INR 1.2 (<1.2); Partial Thromboplastin Time 26.4 sec (22.0-30.0); Prothrombin Time 13.1 sec (10.0-12.5)
[2024-03-09] MEDS: IV FLUID CONTINUATION 1,000 ML IV ONE (06:50)
[2024-03-09 06:55] LABS: ALT 8 U/L (4-49); AST 20 U/L (17-59); African American GFR (CKD) 66 (>60 ml/min/1.73 sqM); Albumin 3.7 g/dL (3.5-5.0); Alkaline Phosphatase 103 U/L (38-126); Anion Gap 7 mmol/L; Blood Urea Nitrogen 29 mg/dL (9-20); Calcium 9.4 mg/dL (8.4-10.2); Carbon Dioxide 25 mmol/L (22-30); Chloride 106 mmol/L (98-107); Glucose 116 mg/dL (74-99); Non-African American GFR(CKD) 57 (>60 ml/min/1.73 sqM); Potassium 4.6 mmol/L (3.5-5.1); Sodium 138 mmol/L (137-145); Total Bilirubin 1.3 mg/dL (0.2-1.3); Total Protein 6.5 g/dL (6.3-8.2)
[2024-03-09] MEDS ORDERED: HYDROmorphone 0.5 MG/0.5 ML SYRINGE IVP PRN ×4 (07:00→07:09)
[2024-03-09] MEDS: MIDAZOLAM 2 MG/2 ML VIAL IV ONE (07:03)
[2024-03-09] MEDS ORDERED: ePHEDrine 50 MG/ML 1 ML VIAL ONE (07:09)
[2024-03-09] MEDS ORDERED: NALOXONE 0.4 MG/ML 1 ML VIAL IV PRN (07:09)
[2024-03-09] MEDS ORDERED: TRANEXAMIC 1,000 MG/100ML-NACL PREMIX BAG ONE (07:09)
[2024-03-09] MEDS ORDERED: LIDOCAINE 1% INJ 10MG/ML (20 ML MDV) ONE (07:09)
[2024-03-09] MEDS ORDERED: PROPOFOL 10 MG/ML 20 ML VIAL IV ONE (07:09)
[2024-03-09] MEDS ORDERED: fentaNYL (PF) 50 MCG/ML 2 ML AMP ONE (07:09)
[2024-03-09] MEDS ORDERED: ONDANSETRON 4 MG/2 ML VIAL IVP PRN (07:09)
[2024-03-09] MEDS ORDERED: MAGNESIUM HYDROXIDE 2,400 MG/30 ML CUP PO PRN (07:09)
[2024-03-09] MEDS ORDERED: ROPIVACAINE 5 MG/ML 30 ML VIAL ONE (07:09)
[2024-03-09] MEDS ORDERED: DEXAMETHASONE SOD PHOSPHATE 4 MG/ML 1 ML VIAL ONE (07:09)
[2024-03-09] MEDS ORDERED: HYDROcodone/APAP 7.5-325MG 1 EACH TAB PO PRN (07:11)
[2024-03-09] MEDS: ceFAZolin 1,000 MG in SODIUM CHLORIDE 0.9% 1,000 ML IRRIGATION ONE (07:13)
[2024-03-09] MEDS: ceFAZolin 3 GM in SODIUM CHLORIDE 0.9% 100 ML IVPB PRN (07:13)
[2024-03-09] MEDS: ROPIVACAINE 5 MG/ML 30 ML VIAL MISCELLANE ONE ×2 (07:50→08:35)
--- NOTE | 2024-03-09 08:41 | P.OP ---
Date of Procedure: 03/09/24 Preoperative Diagnosis: Severe osteoarthritis left hip Postoperative Diagnosis: Severe osteoarthritis left hip Procedure(s) Performed: Left total hip arthroplasty with a direct anterior approach Implants: [employer] Polarstem standard size 8 with a collar [employer] R3, 3 hole hemispherical acetabular shell, 52 mm [employer] Reflection 6.5 mm cancellus screw, 20 mm, 25 mm [employer] OR30, 40 mm ID, 52 mm OD, Oxinium dual mobility liner [employer] OR30, 28 mm ID, 40 mm OD, XLPE Dual mobility insert [employer] Oxinium femoral head 28 m, +0 All components were press-fit. The articulation is Oxinium on polyethylene. Anesthesia: spinal Surgeon: Heriberto Nogueira Certified Nursing Assistant #1: Kassandra Padilla Estimated Blood Loss (ml): 300 Pathology: none sent Condition: stable Disposition: PACU Indications for Procedure: After failure of conservative treatment we discussed the surgical and nonsurgical treatment options at length. Patient wishes to proceed with a total hip arthroplasty with a direct anterior approach. Complications specific to this procedure were discussed at length, including but not limited to infection, leg length discrepancy, dislocation, nerve injury, and fracture. Covid-19 was also discussed at length with the patient, and they are aware of the current policies and procedures. The patient was given the option of delaying surgery, but they elect to proceed knowing these risks. Patient is aware of all these complications and informed consent was obtained Operative Findings: The operative findings are consistent with severe osteoarthritis of the left hip Description of Procedure: The patient was seen and evaluated in the preoperative area and the consent was reviewed. The operative site was marked with a skin marker. The patient verified the procedure and operative site. A NEREYDA block was placed by anesthesia in the preoperative area. The patient was then brought to the operating room and given preoperative antibiotics intravenously. 1 g of Tranexamic acid was also given intravenously. A spinal anesthetic was administered by the anesthesia department. The patient was then placed on the [place] table with the bony prominences well-padded. The hip area was then prepped with a ChloraPrep solution and draped in the usual sterile fashion. A universal timeout was then performed, which confirmed the patient's name, surgical site, ALLERGIES, and procedure being performed on the consent. Next the incision site was located at 1 cm distal and 4 cm lateral to the anterior superior iliac spine. The skin and subcutaneous tissues were sharply incised. Incision was carefully dissected down to the fascia overlying the tensor fascia betsey muscle. This fascia was then incised in line with the muscle fibers. Care was taken to stay laterally in order to avoid injuring the lateral femoral cutaneous nerve. Next, using blunt finger dissection, the tensor fascia betsey muscle was dissected off its investing fascia. The muscle was then carefully retracted laterally with a cobra retractor over the lateral neck of the femur. Next, the circumflex vessels were identified and cauterized using the Aquamantis device. The anterior hip capsule was then exposed. The capsule was then opened and an inverted T fashion. The retractors were then placed intracapsularly. The retractors were maintained intracapsular throughout the procedure. The proximal femur was then visualized. Fluoroscopic x-rays were then taken in order to evaluate the preoperative leg lengths. A small amount of traction was placed on the leg. The femoral neck was then osteotomized at the appropriate level above the lesser trochanter. A small wedge of bone was then removed from the remaining femoral head. Next, using a corkscrew the femoral head was removed from the acetabulum. On gross visual inspection, the femoral head had complete loss of articular cartilage and multiple periarticular osteophytes. The femoral head was then measured. Attention was then turned to the acetabulum. The acetabulum was exposed and any remaining labrum was excised. Sequential reaming of the acetabulum was performed using fluoroscopic guidance until there was a good bed of bleeding cancellus bone. When the appropriate size was reached, a trial was then placed. The position and fit of the trial was checked with fluoroscopy. The trial was then removed. Then, using fluoroscopic guidance, the final implant was impacted at 20 of anteversion and 40 of abduction, and fully seated in the acetabulum. 2 screws were then placed in the acetabulum. Again fluoroscopy was used to check position of the screws. Next, the liner was then impacted, with a 20 elevated liner located in the anterior superior quadrant. Component locking was confirmed. Attention was then directed to the femur. With the aid of the [place] table, the femur was externally rotated to approximately 130, extended, and adducted under the opposite leg. A side hook was then placed under the proximal femur, and the side hook elevator was used to elevate the proximal femur while releasing the capsule. Retractors were then placed. A capsular release was performed, as well as a release of the conjoined tendon, which afforded excellent visualization of the proximal femur. Next, a box osteotome was used to lateralize the proximal femur. A stock handler floorperson was then used to locate the femoral canal. Sequential broaching was then performed with appropriate size which afforded excellent fixation in the proximal femur. A trial was then placed with appropriate head and neck, and the hip was gently reduced with the aid of the [place] table. Fluoroscopy was then used to check position of the components, as well as to evaluate the leg lengths and offset. The leg lengths and offset were measured as closely as possible to ensure stability of the hip. The hip was then gently dislocated and the trials were then removed. Final impl ants were then impacted and the hip was again reduced. Final fluoroscopic x- rays confirmed that the components were in anatomic position. The leg lengths and offset were measured and were found to coincide with the trial measurements. The hip was also taken through range of motion, and found to be stable. The hip was then copiously irrigated with antibiotic solution with pulsatile lavage. The hip was then irrigated with Irrisept solution. The soft tissues were then injected with a ropivacaine solution. A second dose of 1 g of Tranexamic acid was also given intravenously. The fascia was then closed with 2-0 strata fix suture. The subcutaneous tissue was closed with 3-0 Vicryl. The subcuticular tissue was closed with 3-0 strata fix suture. The skin was then closed with Exofin skin glue. After the glue and dried, and Optifoam silver impregnated dressing was applied. The patient was then transferred to the recovery room in stable condition. The review assistant AC Nash was required due to the complexity of surgery, and the need for skilled surgical elastic knitter hand frame for positioning, draping, exposure, retraction, and closure of the wound.
--- NOTE | 2024-03-09 08:57 | FL ---
Fluoroscopy History: LEFT ANTERIOR HIP Lt Hip-Ant 34sec fluoro time 3.3937 [facility], , 03/09/2024 8:55 AM
--- NOTE | 2024-03-09 09:10 | XR ---
Fluoroscopy History: LEFT ANTERIOR HIP Lt Hip-Ant [facility], , 03/09/2024 9:08 AM
[2024-03-09] MEDS: SODIUM CHLORIDE 0.9% 1,000 ML IV SCH (13:05)
--- NOTE | 2024-03-09 13:45 | P.ANPRN ---
Procedure Note - Anesthesia - Nerve Block Performed Left Adductor Canal Single Time Out Performed: Yes Date of Procedure: 03/09/24 Procedure Start Time: 07:03 Procedure Stop Time: 07:08 Location of Patient: PreOp Indication: Acute Post-Operative Pain, Requested by Surgeon Sedation Type: Sedate with meaningful contact maintained Preparation: Sterile Prep Position: Supine Needle Types: Pajunk Needle Gauge: 21 Ultrasound used to visualize needle placement: Yes Ultrasound used to observe medication spread: Yes Blood Aspirated: No Pain Paresthesia on Injection Noted: No Resistance on Injection: Normal Image Stored and Saved: Yes Events: Uneventful and Well Tolerated (ropi .5% 20cc plus dexamethasone 4mg)
--- NOTE | 2024-03-09 15:51 | XR ---
EXAMINATION TYPE: XR Hip Limited LT DATE OF EXAM: 03/09/2024 3:43 PM COMPARISON: 05/14/2023 CLINICAL INDICATION: Male, 78 years old with history of Status post hip surgery, assess surgical farhana kendrick [facility] TECHNIQUE: XR Hip Limited LT; Frontal view FINDINGS: Post arthroplasty changes, hardware is intact, alignment is appropriate. No evidence of fra cture. No evidence of any acute osseous pathology or joint dislocation. IMPRESSION: Hip arthroplasty with hardware intact and in appropriate alignment. No acute fracture. [facility], , 03/09/2024 3:49 PM
[2024-03-09] MEDS: HYDROcodone/APAP 7.5-325MG 1 EACH TAB PO PRN (16:19)
[2024-03-09] MEDS: WARFARIN 5 MG TAB PO ONE (17:26)
[2024-03-09] MEDS: SENNOSIDES-DOCUSATE SODIUM 1 EACH TAB PO SCH (23:14)
--- NOTE | 2024-03-10 08:27 | P.CONS ---
History of Present Illness - Reason for Consult Consult date: 03/10/24 - Chief Complaint Hip repair - History of Present Illness Patient is 78-year-old white male with valvular heart disease who is followed at [facility]. The patient is admitted for appropriate hip repair. Seen postop day #1. Doing quite well. Has started ambulating. Underlying hist ory of gout hypertension. No voiding difficulties. Pain is nominal. We are consulted for appropriate medical management Review of Systems Eyes: denies blurred vision, denies pain Ears, nose, mouth and throat: Denies headache, Denies sore throat Cardiovascular: Denies chest pain, Denies shortness of breath Gastrointestinal: Denies abdominal pain, Denies diarrhea, Denies nausea, Denies vomiting Musculoskeletal: Denies myalgias Past Medical History Past Medical History: Atrial Fibrillation, Hyperlipidemia, Hypertension, Musculoskeletal Disorder, Osteoarthritis (OA), Prostate Disorder, Rheumatoid Arthritis (RA), Sleep Apnea/CPAP/BIPAP Additional Past Medical History / Comment(s): heart murmur, uses CPAP History of Any Multi-Drug Resistant Organisms: None Reported Past Surgical History: Appendectomy, Back Surgery, Cardiac Valve Replacement, Heart Catheterization, Joint Replacement, Orthopedic Surgery Additional Past Surgical History / Comment(s): naldo knee replacement, shoulder rotator cuff-unsure which side, naldo carpal tunnel, naldo carotid endarterectomy, left ankle fusion, aortic valve replacement(bovine), ant TLH 03/09/2024 Past Anesthesia/Blood Transfusion Reactions: Previous Problems w/ Anesthesia Additional Past Anesthesia/Blood Transfusion Reaction / Comm: diff intubation- have to use small tube per spouse Past Psychological History: No Psychological Hx Reported Smoking Status: Former smoker Past Alcohol Use History: None Reported Additional Past Alcohol Use History / Comment(s): quit smoking 30 yrs. ago, 1ppd started as a teen Past Drug Use History: None Reported - Past Family History Mother Family Medical History: Cancer Brother(s) Family Medical History: Cancer Sister(s) Family Medical History: Cancer Medications and Allergies Home Medications Medication Instructions Recorded Confirmed Type Etanercept [Enbrel] 50 mg SQ TH 11/10/13 03/09/24 History Tamsulosin HCl [Flomax] 0.4 mg PO BID 11/10/13 03/09/24 History Metoprolol Succinate [Toprol XL] 75 mg PO HS 11/18/16 03/09/24 History Simvastatin [Zocor] 20 mg PO HS 09/02/19 03/09/24 History Warfarin [Coumadin] 1 mg PO MOWEFR 09/02/19 03/09/24 History Warfarin [Coumadin] 2 mg PO SUTUTHSA 09/02/19 03/09/24 History hydroCHLOROthiazide [Hydrodiuril] 25 mg PO DAILY 09/02/19 03/09/24 History Amiodarone [Cordarone] 200 mg PO QAM 08/15/22 03/09/24 History HYDROcodone/APAP 7.5-325MG [[place] 1 tab PO Q6HR PRN 08/15/22 03/09/24 History 7.5-325] Losartan Potassium 100 mg PO QAM 08/15/22 03/09/24 History allopurinoL [Zyloprim] 100 mg PO DAILY 08/15/22 03/09/24 History Furosemide [Lasix] 20 mg PO Q48H 03/03/24 03/09/24 History Furosemide [Lasix] 40 mg PO Q48H 03/03/24 03/09/24 History Magnesium(Unknown Dose) 1 tab PO HS 03/03/24 03/09/24 History Sennosides [Senokot] 2 tab PO DAILY PRN #60 tablet 03/09/24 Rx Allergies Allergy/AdvReac Type Severity Reaction Status Date / Time Penicillins Allergy Rash/Hives Verified 03/09/24 05:54 Physical Exam Vitals: Vital Signs Temp Pulse Resp BP Pulse Ox FiO2 03/10/24 07:15 98.9 F 71 18 115/55 91 L 03/10/24 02:31 98.2 F 60 17 132/68 98 03/09/24 19:31 98.2 F 65 17 117/67 96 03/09/24 19:30 65 17 03/09/24 15:19 96 03/09/24 14:00 97.7 F 66 15 140/70 95 03/09/24 12:00 57 L 20 140/65 95 03/09/24 11:30 58 L 20 129/59 94 L 03/09/24 11:00 57 L 20 131/69 94 L 03/09/24 10:45 57 L 20 128/61 92 L 03/09/24 10:30 58 L 21 135/63 92 L 03/09/24 10:15 53 L 16 126/58 97 03/09/24 10:08 55 L 17 142/65 96 03/09/24 09:45 53 L 15 127/58 95 03/09/24 09:30 54 L 14 110/53 95 03/09/24 09:27 40 03/09/24 09:25 56 L 15 105/51 94 L 03/09/24 09:16 59 L 22 94/55 91 L 03/09/24 09:10 97.6 F 21 98/46 94 L Intake and Output 03/09/24 03/10/24 03/10/24 22:59 06:59 14:59 Output Total 75 Balance -75 Output: Urine 75 Other: # Voids 1 3 - Constitutional General appearance: no acute distress - EENT Eyes: EOMI - Neck Neck: no lymphadenopathy - Respiratory Respiratory: bilateral: diminished - Cardiovascular Rhythm: irregularly irregular Heart sounds: normal: S1, S2 Abnormal Heart Sounds: no S3 Gallop - Gastrointestinal General gastrointestinal: soft, no tenderness - Integumentary Integumentary: no cellulitis - Psychiatric Psychiatric: A&O x's 3 Results CBC & Chem 7: 03/09/24 06:36 Assessment and Plan (1) Atrial fibrillation Current Visit: Yes Status: Acute Code(s): I48.91 - UNSPECIFIED ATRIAL FIBRILLATION SNOMED Code(s): 73000105 (2) Hypertension Current Visit: Yes Status: Acute Code(s): I10 - ESSENTIAL (PRIMARY) HYPERTENSION SNOMED Code(s): 31018307 (3) Valvular heart disease Current Visit: Yes Status: Acute Code(s): I38 - ENDOCARDITIS, VALVE UNSPECIFIED SNOMED Code(s): 507265 (4) Osteoarthritis of left hip Current Visit: Yes Status: Acute Code(s): M16.12 - UNILATERAL PRIMARY OSTEOARTHRITIS, LEFT HIP SNOMED Code(s): 116097772321164 (5) S/P total left hip arthroplasty Current Visit: Yes Status: Acute Code(s): Z96.642 - PRESENCE OF LEFT ARTIFICIAL HIP JOINT SNOMED Code(s): 511397637291 Plan: Reconcile home medications. Start warfarin when cleared appropriate with orthopedics. Pain control per surgery. Will continue to follow. Physical therapy for ambulation today. Anticipate discharge in the next 24-48 hours with the appropriate recovery trajectory that the patient has shown. Time with Patient: Greater than 30
[2024-03-10 08:38] LABS: Basophils # (A) 0.03 X 10*3/uL (0.00-0.10); Basophils % (A) 0.2 %; Eosinophils # (A) 0 X 10*3/uL (0.04-0.35); Eosinophils % (A) 0 %; HCT 37.6 % (39.6-50.0); Lymphocytes # (A) 0.55 X 10*3/uL (0.90-5.00); Lymphocytes % (A) 3.5 %; MCHC 31.9 g/dL (32.0-37.0); Mean Platelet Volume 10.4 FL (9.5-12.2); Monocytes # (A) 1.46 X 10*3/uL (0.20-1.00); Monocytes % (A) 9.4 %; NRBC Per 100 WBC 0 X 10*3/uL (0.00-0.01); Neutrophils # (A) 13.41 X 10*3/uL (1.80-7.70); Neutrophils % (A) 86.3 %; Platelet Count 152 X 10*3/uL (140-440); RDW 15.2 % (11.5-14.5); WBC 15.55 X 10*3/uL (4.50-10.00)
[2024-03-10] MEDS: TAMSULOSIN 0.4 MG CAP.ER.24H PO SCH (09:55)
[2024-03-10] MEDS: allopurinoL 100 MG TAB PO SCH (09:55)
[2024-03-10] MEDS: hydroCHLOROthiazide 25 MG TAB PO SCH (09:55)
[2024-03-10] MEDS: AMIODARONE 200 MG TAB PO SCH (09:55)
[2024-03-10] MEDS: FUROSEMIDE 20 MG TAB PO SCH (10:03)
--- NOTE | 2024-03-10 11:08 | P.PN ---
Subjective Progress Note Date: 03/10/24 This is an 78-year-old male who is status post left total hip arthroplasty. This is postoperative day #1 and patient is seen and evaluated at bedside today. Patient states that his pain is well-controlled and he was able to work with physical therapy today. Objective - Vital Signs Vital signs: Vital Signs Temp 98.9 F 03/10/24 07:15 Pulse 71 03/10/24 07:15 Resp 18 03/10/24 07:15 BP 115/55 03/10/24 07:15 Pulse Ox 91 L 03/10/24 07:15 FiO2 40 03/09/24 09:27 Intake & Output 03/09/24 03/10/24 03/10/24 18:59 06:59 18:59 Intake Total 1700 Output Total 375 Balance 1325 Weight 121.2 kg Intake: IV 1700 Output: Urine 75 Estimated Blood Loss 300 Other: Voiding Method Toilet # Voids 1 3 - Exam Vital signs are stable. Patient is in no acute distress and is alert and oriented 3. Calf is soft and nontender to palpation. Dressing is clean, dry, and intact. Patient has full foot and ankle motion without pain or difficulty. Sensation intact. Neurovascular status and circulatory status are intact. - Labs CBC & Chem 7: 03/10/24 02:24 03/09/24 06:36 Labs: Abnormal Lab Results - Last 24 Hours (Table) 03/10/24 Range/Units 02:24 WBC 15.55 H (4.50-10.00) X 10*3/uL RBC 4.00 L (4.40-5.60) X 10*6/uL Hgb 12.0 L (13.0-17.0) g/dL Hct 37.6 L (39.6-50.0) % MCHC 31.9 L (32.0-37.0) g/dL RDW 15.2 H (11.5-14.5) % Immature Gran # 0.10 H (0.00-0.04) X 10*3/uL Neutrophils # 13.41 H (1.80-7.70) X 10*3/uL Lymphocytes # 0.55 L (0.90-5.00) X 10*3/uL Monocytes # 1.46 H (0.20-1.00) X 10*3/uL Eosinophils # 0 L (0.04-0.35) X 10*3/uL Assessment and Plan (1) Osteoarthritis of left hip Current Visit: Yes Status: Acute Code(s): M16.12 - UNILATERAL PRIMARY OSTE OARTHRITIS, LEFT HIP SNOMED Code(s): 977316377546844 (2) S/P total left hip arthroplasty Current Visit: Yes Status: Acute Code(s): Z96.642 - PRESENCE OF LEFT ARTIFICIAL HIP JOINT SNOMED Code(s): 647805533686 Plan: Continue routine postop care and pain control. Continue anticoagulation with warfarin. Weightbearing as tolerated with a walker. Leave dressing in place for 7 days. Appreciate input from internal medicine. Anticipate discharge home with homecare in the next 24-48 hours.
[2024-03-10 12:32] LABS: INR 1.34 sec (0.93-1.11); Prothrombin Time 14.2 sec (9.9-11.9)
[2024-03-10] MEDS: WARFARIN 3 MG TAB PO ONE (17:57)
[2024-03-10] MEDS: METOPROLOL SUCCINATE (ER) 25 MG TAB.ER.24H PO SCH (20:55)
[2024-03-10] MEDS: ATORVASTATIN 10 MG TAB PO SCH (20:56)
[2024-03-10] MEDS ORDERED: MAGNESIUM PO SCH (21:00)
--- NOTE | 2024-03-11 08:26 | P.PN ---
Subjective Progress Note Date: 03/11/24 This is an 78-year-old male who is postop day #2 from a left total hip arthroplasty. Patient is seen this morning sitting in chair at bedside. He reports he did have a little bit more pain this morning when getting up from bed, however for the most part his pain has been well-controlled. He has been working with physical therapy. Vital signs are stable. He is tolerating diet. Objective - Vital Signs Vital signs: Vital Signs Temp 98.5 F 03/11/24 07:22 Pulse 69 03/11/24 07:22 Resp 17 03/11/24 07:22 BP 155/68 03/11/24 07:22 Pulse Ox 93 L 03/11/24 07:22 FiO2 40 03/09/24 09:27 Intake & Output 03/10/24 03/11/24 03/11/24 18:59 06:59 18:59 Output Total 300 Balance -300 Output: Urine 300 Other: Voiding Method Toilet Toilet Urinal # Voids 3 5 - Constitutional General appearance: Present: cooperative, no acute distress - EENT Eyes: Present: PERRLA - Neck Neck: Present: normal ROM. Absent: lymphadenopathy, rigidity - Respiratory Respiratory: bilateral: diminished - Cardiovascular Rhythm: irregularly irregular - Gastrointestinal General gastrointestinal: Present: soft. Absent: tenderness - Integumentary Integumentary: Present: normal, normal turgor - Psychiatric Psychiatric: Present: A&O x's 3, appropriate affect, intact judgment & insight - Labs CBC & Chem 7: 03/10/24 02:24 03/09/24 06:36 Labs: Abnormal Lab Results - Last 24 Hours (Table) 03/10/24 03/10/24 Range/Units 02:24 02:24 WBC 15.55 H (4.50-10.00) X 10*3/uL RBC 4.00 L (4.40-5.60) X 10*6/uL Hgb 12.0 L (13.0-17.0) g/dL Hct 37.6 L (39.6-50.0) % MCHC 31.9 L (32.0-37.0) g/dL RDW 15.2 H (11.5-14.5) % Immature Gran # 0.10 H (0.00-0.04) X 10*3/uL Neutrophils # 13.41 H (1.80-7.70) X 10*3/uL Lymphocytes # 0.55 L (0.90-5.00) X 10*3/uL Monocytes # 1.46 H (0.20-1.00) X 10*3/uL Eosinophils # 0 L (0.04-0.35) X 10*3/uL PT 14.2 H (9.9-11.9) sec INR 1.34 H (0.93-1.11) sec Assessment and Plan (1) Atrial fibrillation Current Visit: Yes Status: Acute Code(s): I48.91 - UNSPECIFIED ATRIAL FIBRILLATION SNOMED Code(s): 70123385 (2) Hypertension Current Visit: Yes Status: Acute Code(s): I10 - ESSENTIAL (PRIMARY) HYPERTENSION SNOMED Code(s): 62609554 (3) Osteoarthritis of left hip Current Visit: Yes Status: Acute Code(s): M16.12 - UNILATERAL PRIMARY OSTEOARTHRITIS, LEFT HIP SNOMED Code(s): 642097452532176 (4) S/P total left hip arthroplasty Current Visit: Yes Status: Acute Code(s): Z96.642 - PRESENCE OF LEFT ARTIFICIAL HIP JOINT SNOMED Code(s): 290169773518 (5) Valvular heart disease Current Visit: Yes Status: Acute Code(s): I38 - ENDOCARDITIS, VALVE UNSPECIFIED SNOMED Code(s): 481264 Plan: Continue to follow postop instructions from surgeon and work with physical therapy. Patient may be discharged home from our standpoint when cleared by surgeon. Patient seen and evaluated by nurse practitioner, physician in agreement with plan.
[2024-03-11] MEDS: FUROSEMIDE 40 MG TAB PO SCH (09:40)
[2024-03-11] MEDS: ETANERCEPT 50 MG/ML SQ SCH (10:13)
--- NOTE | 2024-03-11 10:13 | P.PN ---
Subjective Progress Note Date: 03/11/24 This is an 78-year-old male who is status post left total hip arthroplasty. This is postoperative day #2 and patient is seen and evaluated at bedside today. Patient states that his pain is well-controlled. Patient states that he had a little more difficulty with physical therapy today. Otherwise, patient denies any new complaint today. Objective - Vital Signs Vital signs: Vital Signs Temp 98.5 F 03/11/24 07:22 Pulse 69 03/11/24 07:22 Resp 17 03/11/24 07:22 BP 155/68 03/11/24 07:22 Pulse Ox 93 L 03/11/24 07:22 FiO2 40 03/09/24 09:27 Intake & Output 03/10/24 03/11/24 03/11/24 18:59 06:59 18:59 Output Total 300 Balance -300 Output: Urine 300 Other: Voiding Method Toilet Toilet Urinal # Voids 3 5 - Exam Vital signs are stable. Patient is in no acute distress and is alert and oriented 3. Calf is soft and nontender to palpation. Dressing is clean, dry, and intact. Patient has full foot and ankle motion without pain or difficulty. Sensation intact. Neurovascular status and circulatory status are intact. - Labs CBC & Chem 7: 03/10/24 02:24 03/09/24 06:36 Labs: Abnormal Lab Results - Last 24 Hours (Table) 03/10/24 Range/Units 02:24 PT 14.2 H (9.9-11.9) sec INR 1.34 H (0.93-1.11) sec Assessment and Plan (1) Osteoarthritis of left hip Current Visit: Yes Status: Acute Code(s): M16.12 - UNILATERAL PRIMARY OSTEOARTHRITIS, LEFT HIP SNOMED Code(s): 800837404755217 (2) S/P total left hip arthroplasty Current Visit: Yes Status: Acute Code(s): Z96.642 - PRESENCE OF LEFT A RTIFICIAL HIP JOINT SNOMED Code(s): 784937181717 Plan: Continue routine postop care and pain control. Continue anticoagulation with warfarin. Weightbearing as tolerated with a walker. Leave dressing in place for 7 days. Appreciate input from internal medicine. Anticipate discharge home with homecare in the next 24-48 hours.
[2024-03-11 11:49] LABS: INR 1.9 sec (0.93-1.11); Prothrombin Time 19.7 sec (9.9-11.9)
[2024-03-11] MEDS: WARFARIN 2 MG TAB PO ONE (17:11)
--- NOTE | 2024-03-11 21:44 | XR ---
EXAMINATION TYPE: XR chest 1V portable DATE OF EXAM: 03/11/2024 CLINICAL HISTORY: Fever and chills TECHNIQUE: Single frontal view of the chest is obtained. COMPARISON: 12/25/2023 FINDINGS: Right perihilar patchy density may reflect underlying pneumonia. Correlate clinically. The cardiac silhouette size is within normal limits. The osseous structures are intact. IMPRESSION: Right perihilar patchy density may reflect underlying pneumonia. Correlate clinically. [facility], , 03/11/2024 9:42 PM
[2024-03-11 21:50] LABS: Basophils % (A) 0 %; Eosinophils # (A) 0.2 k/uL (0-0.7); Eosinophils % (A) 1 %; HCT 38.6 % (39.0-53.0); HGB 12.2 gm/dL (13.0-17.5); Lymphocytes # (A) 0.7 k/uL (1.0-4.8); Lymphocytes % (A) 6 %; MCH 29.3 pg (25.0-35.0); MCHC 31.7 g/dL (31.0-37.0); MCV 92.5 fL (80.0-100.0); Mean Platelet Volume 7.5; Monocytes # (A) 1.2 k/uL (0-1.0); Monocytes % (A) 10 %; Neutrophils # (A) 9.7 k/uL (1.3-7.7); Neutrophils % (A) 81 %; Platelet Count 149 k/uL (150-450); RBC 4.17 m/uL (4.30-5.90); RDW 15.3 % (11.5-15.5)
[2024-03-12 05:57] LABS: Appearance,Urine Clear (Clear); Bilirubin,Urine Negative (Negative); Blood,Urine Trace (Negative); Color,Urine Light Yellow; Glucose,Urine (UA) Negative (Negative); Hyaline Casts,Urine 4 /lpf (0-2); Ketones,Urine Negative (Negative); Leukocyte Esterase,Urine Negative (Negative); Mucus,Urine Rare /hpf; Nitrite,Urine Negative (Negative); Protein,Urine Trace (Negative); RBC,Urine <1 /hpf (0-5); Specific Gravity,Urine 1.017 (1.001-1.035); Urobilinogen,Urine <2.0 mg/dL (<2.0); WBC,Urine <1 /hpf (0-5)
--- NOTE | 2024-03-12 08:20 | P.PN ---
Subjective Principal diagnosis: Postop fever The patient is an 78-year-old white male with 3-day postop for hip repair. The patient last night developed fever. Empiric treatment is slightly complicated due to amiodarone and penicillin allergy. We will ask infectious disease to comment on appropriate antibiotic treatment. There is fever but the patient feels comfortable now. X-ray shows patchy infiltrate Objective - Vital Signs Vital signs: Vital Signs Temp 98.6 F 03/12/24 07:20 Pulse 63 03/12/24 07:20 Resp 18 03/12/24 07:20 BP 128/61 03/12/24 07:20 Pulse Ox 91 L 03/12/24 07:20 FiO2 40 03/09/24 09:27 Intake & Output 03/11/24 03/12/24 03/12/24 18:59 06:59 18:59 Intake Total 540 Balance 540 Intake: Oral 540 Other: Voiding Method Toilet # Voids 3 2 - Constitutional General appearance: Present: cooperative, no acute distress - EENT Eyes: Absent: abnormal pupil - Neck Neck: Absent: lymphadenopathy - Respiratory Respiratory: bilateral: diminished - Cardiovascular Rhythm: regular Heart sounds: normal: S1, S2 Abnormal Heart Sounds: Absent: S3 Gallop - Gastrointestinal General gastrointestinal: Present: soft - Labs CBC & Chem 7: 03/11/24 21:31 03/09/24 06:36 Labs: Abnormal Lab Results - Last 24 Hours (Table) 03/11/24 03/11/24 03/12/24 Range/Units 05:30 21:31 05:30 WBC 12.0 H (3.8-10.6) k/uL RBC 4.17 L (4.30-5.90) m/uL Hgb 12.2 L (13.0-17.5) gm/dL Hct 38.6 L (39.0-53.0) % Plt Count 149 L (150-450) k/uL Neutrophils # 9.7 H (1.3-7.7) k/uL Lymphocytes # 0.7 L (1.0-4.8) k/uL Monocytes # 1.2 H (0-1.0) k/uL PT 19.7 H (9.9-11.9) sec INR 1.90 H (0.93-1.11) sec Urine Protein Trace H (Negative) Urine Blood Trace H (Negative) Hyaline Casts 4 H (0-2) /lpf Urine Mucus Rare H (None) /hpf Assessment and Plan (1) Atrial fibrillation Status: Acute Code(s): I48.91 - UNSPECIFIED ATRIAL FIBRILLATION SNOMED Code(s): 73169378 (2) Hypertension Status: Acute Code(s): I10 - ESSENTIAL (PRIMARY) HYPERTENSION SNOMED Code(s): 19229043 (3) Valvular heart disease Status: Acute Code(s): I38 - ENDOCARDITIS, VALVE UNSPECIFIED SNOMED Code(s): 936816 (4) Osteoarthritis of left hip Status: Acute Code(s): M16.12 - UNILATERAL PRIMARY OSTEOARTHRITIS, LEFT HIP SNOMED Code(s): 939116356532305 (5) S/P total left hip arthroplasty Status: Acute Code(s): Z96.642 - PRESENCE OF LEFT ARTIFICIAL HIP JOINT SNOMED Code(s): 490627306042 Plan: Postop fever. Ask infectious disease to consult secondary to penicillin allergy and amiodarone usage. Pain control per surgery. Will continue to follow. Physical therapy for ambulation today. Anticipate discharge in the next 24-48 hours with the appropriate recovery trajectory that the patient has shown.
[2024-03-12 08:58] LABS: Basophils # (A) 0.06 X 10*3/uL (0.00-0.10); Basophils % (A) 0.5 %; Eosinophils # (A) 0.12 X 10*3/uL (0.04-0.35); Eosinophils % (A) 1.1 %; HCT 37.3 % (39.6-50.0); Lymphocytes # (A) 0.97 X 10*3/uL (0.90-5.00); Lymphocytes % (A) 8.6 %; MCH 29.3 pg (27.0-32.0); MCHC 32.2 g/dL (32.0-37.0); MCV 91.2 FL (80.0-97.0); Mean Platelet Volume 10.4 FL (9.5-12.2); Monocytes # (A) 1.45 X 10*3/uL (0.20-1.00); Monocytes % (A) 12.9 %; NRBC Per 100 WBC 0 X 10*3/uL (0.00-0.01); Neutrophils # (A) 8.59 X 10*3/uL (1.80-7.70); Neutrophils % (A) 76.5 %; Platelet Count 163 X 10*3/uL (140-440); RBC 4.09 X 10*6/uL (4.40-5.60); RDW 15.6 % (11.5-14.5); WBC 11.24 X 10*3/uL (4.50-10.00)
--- NOTE | 2024-03-12 09:32 | P.DS ---
Providers Expected date of discharge: 03/12/24 Attending physician: Heriberto Nogueira Consults: 03/09/24 07:09 Consult Physician Routine Consulting Provider: Elver Sky Consult Reason/Comments: medical management Do you want consulting provider notified?: Yes 03/12/24 08:18 Consult Physician Routine Consulting Provider: Mirian Erickson Consult Reason/Comments: pneumonia with pcn allergy. Amiodarone Do you want consulting provider notified?: Yes Primary care physician: Elver Sky - Discharge Diagnosis(es) (1) Osteoarthritis of left hip Status: Acute (2) S/P total left hip arthroplasty Status: Acute Hospital Course: This is an 78-year-old male with known history of degenerative arthritis of the left hip. The patient presents for evaluation. After discussion and consideration patient elects to proceed with total hip arthroplasty with direct anterior approach. The patient is seen preoperatively by primary care physician and cleared for surgery. Patient is admitted to [facility] on 03/09/2024 for total hip arthroplasty with direct anterior approach. The procedure is performed without complication or sequelae. The patient is doing well postoperatively. Did run a temp this morning and has been diagnosed with pneumonia. He was given IV antibiotics this morning per Dr. Erickson. Patient would like to be discharged today if possible. On day of discharge patient's hip incision is healing well. There is minimal erythema. There is no drainage noted at this time. There is minimal soft tissue swelling to the hip and thigh. Patient has full foot and ankle motion without difficulty or pain. Neurovascular status to the lower extremity is intact. Patient is discharged to home today as long as he is cleared by medicine and infectious disease. Please see med rec for accurate list of home medications. Patient Condition at Discharge: Stable Plan - Discharge Summary Discharge Rx Participant: Yes New Discharge Prescriptions: New Sennosides [Senokot] 2 tab PO DAILY PRN #60 tablet PRN Reason: Constipation HYDROcodone/APAP 7.5-325MG [[place] 7.5-325] 1 - 2 tab PO Q6H PRN #32 tab PRN Reason: Pain No Action Tamsulosin HCl [Flomax] 0.4 mg PO BID Etanercept [Enbrel] 50 mg SQ TH Metoprolol Succinate [Toprol XL] 75 mg PO HS hydroCHLOROthiazide [Hydrodiuril] 25 mg PO DAILY Warfarin [Coumadin] 1 mg PO MOWEFR Warfarin [Coumadin] 2 mg PO SUTUTHSA Simvastatin [Zocor] 20 mg PO HS Amiodarone [Cordarone] 200 mg PO QAM HYDROcodone/APAP 7.5-325MG [[place] 7.5-325] 1 tab PO Q6HR PRN PRN Reason: Pain Furosemide [Lasix] 20 mg PO Q48H allopurinoL [Zyloprim] 100 mg PO DAILY Losartan Potassium 100 mg PO QAM Furosemide [Lasix] 40 mg PO Q48H Magnesium(Unknown Dose) 1 tab PO HS Discharge Medication List Etanercept [Enbrel] 50 mg SQ TH 11/10/13 [History] Tamsulosin HCl [Flomax] 0.4 mg PO BID 11/10/13 [History] Metoprolol Succinate [Toprol XL] 75 mg PO HS 11/18/16 [History] Simvastatin [Zocor] 20 mg PO HS 09/02/19 [History] Warfarin [Coumadin] 1 mg PO MOWEFR 09/02/19 [History] Warfarin [Coumadin] 2 mg PO SUTUTHSA 09/02/19 [History] hydroCHLOROthiazide [Hydrodiuril] 25 mg PO DAILY 09/02/19 [History] Amiodarone [Cordarone] 200 mg PO QAM 08/15/22 [History] HYDROcodone/APAP 7.5-325MG [[place] 7.5-325] 1 tab PO Q6HR PRN 08/15/22 [History] Losartan Potassium 100 mg PO QAM 08/15/22 [History] allopurinoL [Zyloprim] 100 mg PO DAILY 08/15/22 [History] Furosemide [Lasix] 20 mg PO Q48H 03/03/24 [History] Furosemide [Lasix] 40 mg PO Q48H 03/03/24 [History] Magnesium(Unknown Dose) 1 tab PO HS 03/03/24 [History] Sennosides [Senokot] 2 tab PO DAILY PRN #60 tablet 03/09/24 [Rx] HYDROcodone/APAP 7.5-325MG [[place] 7.5-325] 1 - 2 tab PO Q6H PRN #32 tab 03/11/24 [Rx] Follow up Appointment(s)/Referral(s): [facility], [NON-STAFF] - 1-2 Days ([facility] will call you to schedule your in home physical therapy visits. ) Heriberto Nogueira DO [Doctor of Osteopathic Medicine] - 2 Weeks Activity/Diet/Wound Care/Special Instructions: Weightbearing as tolerated with a walker. Leave dressing intact. Dressing may be removed by home care nurse or by patient in 7 days. Then change dressing twice daily until follow up. May shower with initial dressing intact and after removal. If dressing become saturated, please remove. Recommend use of compression stockings daily until follow up to help prevent swelling and blood clots. May remove at night before sleeping. Please resume warfarin. Please follow up with [facility] and call with any questions or concerns, .
[2024-03-12] MEDS: CEFEPIME 2 GM in SODIUM CHLORIDE 0.9% 100 ML IVPB SCH (09:56)
[2024-03-12 10:29] LABS: INR 2.13 sec (0.93-1.11); Prothrombin Time 21.9 sec (9.9-11.9)
--- NOTE | 2024-03-12 15:03 | P.CONS ---
History of Present Illness - Reason for Consult Consult date: 03/12/24 Pneumonia with a penicillin allergy, amiodarone Requesting physician: Elver Sky - Chief Complaint Fever x 1 day - History of Present Illness Patient is a 78-year-old male with a past medical history difficult for hypertension hyperlipidemia atrial fibrillation osteoarthritis prostate disorder or any patient was electively admitted to the hospital on 03/09/2024 after the patient did have a left total hip replacement with direct anterior approach patient subsequently has been in the hospital recovering from his surgery patient was afebrile on admission however the patient did spike a fever of 101.2 F last evening patient mention he was feeling cold all day long yesterday and did have some chills he denies having any headache or URI symptoms no chest pain no shortness of breath or significant cough no nausea vomiting no abdominal pain no diarrhea no urinary symptoms patient mention pain to the left hip has decreased in intensity patient did have a white count of 15.55 on admission that is trending down patient did have a left shift on the CBC done today creatinine is 1.19 urine has been negative patient did have a chest x-ray that was done this morning by medical team did shows right perihilar patchy density may reflect developing pneumonia prompted this consultation patient was started on cefepime pending evaluation as he did have a history of penicillin allergy but no history of any anaphylaxis Review of Systems Positive point and negatives has been mentioned in the HPI, complete review of systems was performed and all other systems are negative Past Medical History Past Medical History: Atrial Fibrillation, Hyperlipidemia, Hypertension, Musculoskeletal Disorder, Osteoarthritis (OA), Prostate Disorder, Rheumatoid Arthritis (RA), Sleep Apnea/CPAP/BIPAP Additional Past Medical History / Comment(s): heart murmur, uses CPAP History of Any Multi-Drug Resistant Organisms: None Reported Past Surgical History: Appendectomy, Back Surgery, Cardiac Valve Replacement, Heart Catheterization, Joint Replacement, Orthopedic Surgery Additional Past Surgical History / Comment(s): naldo knee replacement, shoulder rotator cuff-unsure which side, naldo carpal tunnel, naldo carotid endarterectomy, left ankle fusion, aortic valve replacement(bovine), ant TLH 03/09/2024 Past Anesthesia/Blood Transfusion Reactions: Previous Problems w/ Anesthesia Additional Past Anesthesia/Blood Transfusion Reaction / Comm: diff intubation- have to use small tube per spouse Past Psychological History: No Psychological Hx Reported Smoking Status: Former smoker Past Alcohol Use History: None Reported Additional Past Alcohol Use History / Comment(s): quit smoking 30 yrs. ago, 1ppd started as a teen Past Drug Use History: None Reported - Past Family History Mother Family Medical History: Cancer Brother(s) Family Medical History: Cancer Sister(s) Family Medical History: Cancer Medications and Allergies Home Medications Medication Instructions Recorded Confirmed Type Etanercept [Enbrel] 50 mg SQ TH 11/10/13 03/09/24 History Tamsulosin HCl [Flomax] 0.4 mg PO BID 11/10/13 03/09/24 History Metoprolol Succinate [Toprol XL] 75 mg PO HS 11/18/16 03/09/24 History Simvastatin [Zocor] 20 mg PO HS 09/02/19 03/09/24 History Warfarin [Coumadin] 1 mg PO MOWEFR 09/02/19 03/09/24 History Warfarin [Coumadin] 2 mg PO SUTUTHSA 09/02/19 03/09/24 History hydroCHLOROthiazide [Hydrodiuril] 25 mg PO DAILY 09/02/19 03/09/24 History Amiodarone [Cordarone] 200 mg PO QAM 08/15/22 03/09/24 History HYDROcodone/APAP 7.5-325MG [[place]ay 1 tab PO Q6HR PRN 08/15/22 03/09/24 History 7.5-325] Losartan Potassium 100 mg PO QAM 08/15/22 03/09/24 History allopurinoL [Zyloprim] 100 mg PO DAILY 08/15/22 03/09/24 History Furosemide [Lasix] 20 mg PO Q48H 03/03/24 03/09/24 History Furosemide [Lasix] 40 mg PO Q48H 03/03/24 03/09/24 History Magnesium(Unknown Dose) 1 tab PO HS 03/03/24 03/09/24 History HYDROcodone/APAP 7.5-325MG [Ramsay 1 - 2 tab PO Q6HR PRN #32 tab 03/13/24 Rx 7.5-325] Sennosides-Docusate Sodium 1 tab PO BID #60 tablet 03/13/24 Rx [Senokot-S] cefuroxime axetiL [Ceftin] 500 mg PO BID #10 tab 03/13/24 Rx Allergies Allergy/AdvReac Type Severity Reaction Status Date / Time Penicillins Allergy Rash/Hives Verified 03/09/24 05:54 Physical Exam Vitals: Vital Signs Temp Pulse Pulse Resp BP Pulse Ox 03/12/24 07:20 98.6 F 63 18 128/61 91 L 03/12/24 01:46 98.2 F 63 20 140/82 95 03/11/24 21:55 99.1 F 03/11/24 21:25 101.2 F H 03/11/24 19:30 76 20 03/11/24 19:20 99.8 F H 76 20 143/74 93 L 03/11/24 13:41 98.5 F 86 17 119/53 93 L Intake and Output 03/11/24 03/12/24 03/12/24 22:59 06:59 14:59 Intake Total 540 Balance 540 Intake: Oral 540 Other: Voiding Method Toilet # Voids 3 2 GENERAL DESCRIPTION: Elderly male up in the chair, no distress. No tachypnea or accessory muscle of respiration use. HEENT: Shows Pallor , no scleral icterus. Oral mucous membrane is dry. No pharyngeal erythema or thrush NECK: Trachea central, no thyromegaly. LUNGS: Unlabored breathing. Decreased breath sound at the base with some coarse crackles HEART: S1, S2, regular rate and rhythm. No loud murmur ABDOMEN: Soft, no tenderness , guarding or rigidity, no organomegaly EXTREMITIES: Left hip incision is currently intact dressing covered some swelling no redness SKIN: No rash, no masses palpable. NEUROLOGICAL: The patient is awake, alert, oriented x3, mood and affect normal. Results CBC & Chem 7: 03/12/24 05:33 03/09/24 06:36 Labs: Abnormal Lab Results - Last 24 Hours (Table) 03/11/24 03/11/24 03/12/24 Range/Units 05:30 21:31 05:30 WBC 12.0 H (3.8-10.6) k/uL RBC 4.17 L (4.30-5.90) m/uL Hgb 12.2 L (13.0-17.5) gm/dL Hct 38.6 L (39.0-53.0) % RDW (11.5-14.5) % Plt Count 149 L (150-450) k/uL Immature Gran # (0.00-0.04) X 10*3/uL Neutrophils # 9.7 H (1.3-7.7) k/uL Lymphocytes # 0.7 L (1.0-4.8) k/uL Monocytes # 1.2 H (0-1.0) k/uL PT 19.7 H (9.9-11.9) sec INR 1.90 H (0.93-1.11) sec Urine Protein Trace H (Negative) Urine Blood Trace H (Negative) Hyaline Casts 4 H (0-2) /lpf Urine Mucus Rare H (None) /hpf 03/12/24 Range/Units 05:33 WBC 11.24 H (3.8-10.6) k/uL RBC 4.09 L (4.30-5.90) m/uL Hgb 12.0 L (13.0-17.5) gm/dL Hct 37.3 L (39.0-53.0) % RDW 15.6 H (11.5-14.5) % Plt Count (150-450) k/uL Immature Gran # 0.05 H (0.00-0.04) X 10*3/uL Neutrophils # 8.59 H (1.3-7.7) k/uL Lymphocytes # (1.0-4.8) k/uL Monocytes # 1.45 H (0-1.0) k/uL PT (9.9-11.9) sec INR (0.93-1.11) sec Urine Protein (Negative) Urine Blood (Negative) Hyaline Casts (0-2) /lpf Urine Mucus (None) /hpf Assessment and Plan (1) Fever Status: Acute Code(s): R50.9 - FEVER, UNSPECIFIED SNOMED Code(s): 678929332 (2) Pneumonia Status: Acute Code(s): J18.9 - PNEUMONIA, UNSPECIFIED ORGANISM SNOMED Code(s): 090328057 (3) Penicillin allergy Status: Acute Code(s): Z88.0 - ALLERGY STATUS TO PENICILLIN SNOMED Code(s): 45602551 Plan: 1patient with a fever, in this patient with initial admission to the hospital after left hip replacement workup so far suggestive of right perihilar infiltrate suspicious for pneumonia is currently no other obvious focus with a UA negative abdominal soft on clinical examination and no evidence of cellulitis to the left hip surgical site. 2patient did have a penicillin allergy that will limit number of antibiotics safe to use. 3we will obtain a CRP and procalcitonin and obtain sputum if possible. 4we will continue with the empiric cefepime while waiting for the workup to be completed. We will follow on clinical condition and cultures to further adjust medication if needed Thank you for this consultation we will follow the patient along with you Dictation was produced using [employer] dictation software. please excuse any grammatical, word or spelling errors. Time with Patient: Greater than 30
[2024-03-12] MEDS: WARFARIN 1 MG TAB PO ONE (17:15)
[2024-03-13 04:03] LABS: INR 2.5 (<1.2); Prothrombin Time 25.1 sec (10.0-12.5)
--- NOTE | 2024-03-13 10:21 | P.PN ---
Subjective Progress Note Date: 03/13/24 Principal diagnosis: Primary osteoarthritis left hip. Status post total left hip arthroplasty with direct anterior approach. This is an 78-year-old male who is status post total left hip arthroplasty with direct anterior approach. He is doing well from an orthopedic standpoint. He did spike a temperature of 101 on 03/11/2024. Chest x-ray showed a possible infiltrate and he is currently being treated for a possible pneumonia. Patient states that he feels well and has no shortness of breath or cough. He has been afebrile. He has no new complaints or concerns today. He would like to be discharged home today if possible. Objective - Vital Signs Vital signs: Vital Signs Temp 99 F 03/13/24 07:11 Pulse 68 03/13/24 07:11 Resp 18 03/13/24 07:11 BP 139/66 03/13/24 07:11 Pulse Ox 91 L 03/13/24 07:11 FiO2 40 03/09/24 09:27 Intake & Output 03/12/24 03/13/24 03/13/24 18:59 06:59 18:59 Intake Total 400 Output Total 950 1000 Balance -550 -1000 Intake: Oral 400 Output: Urine 950 1000 Other: Voiding Method Toilet Toilet # Voids 2 # Bowel Movements 1 - Exam This is a pleasant 78-year-old male in no acute distress. He is alert and oriented x 3. Exam of the left lower extremity reveals that his hip dressing is clean, dry and intact. He has full foot and ankle motion without difficulty or pain. Neurovascular status to the lower extremity is intact. - Labs CBC & Chem 7: 03/12/24 05:33 03/09/24 06:36 Labs: Abnormal Lab Results - Last 24 Hours (Table) 03/12/24 03/12/24 03/13/24 Range/Units 05:33 05:33 02:48 PT 21.9 H 25.1 H (9.9-11.9) sec INR 2.13 H 2.5 H (0.93-1.11) sec C-Reactive Protein 17.6 H (<1.0) mg/dL Microbiology - Last 24 Hours (Table) 03/11/24 21:31 Blood Culture - Preliminary Blood Assessment and Plan (1) Osteoarthritis of left hip Status: Acute Code(s): M16.12 - UNILATERAL PRIMARY OSTEOARTHRITIS, LEFT HIP SNOMED Code(s): 845416877661870 (2) S/P total left hip arthroplasty Status: Acute Code(s): Z96.642 - PRESENCE OF LEFT ARTIFICIAL HIP JOINT SNOMED Code(s): 652132112302 Plan: The clinical findings are discussed with the patient. I would like to get him home today if possible. We are awaiting evaluation with internal medicine. Plan discharge to home today with home care if cleared medically.
--- NOTE | 2024-03-13 13:15 | P.PN ---
Subjective Progress Note Date: 03/13/24 Principal diagnosis: Reason for follow-up is fever Patient is a 78-year-old male with a past medical history difficult for hypertension hyperlipidemia atrial fibrillation osteoarthritis prostate disorder or any patient was electively admitted to the hospital on 03/09/2024 after the patient did have a left total hip replacement with direct anterior approach, the patient did have a fever evening of 03/11/2024 with a chest x-ray with right perihilar content concerning for pneumonia prompted this consultation. On today's evaluation that is 03/13/2024,the patient remains to be afebrile, patient is on room air not requiring supplemental oxygen and denies any shortnes s of breath no chest pain or significant cough.Patient denies having any nausea or vomiting, no abdominal pain and no diarrhea, pain to the hip is currently controlled. No CBC was done today INR is 2.5 Pro-Elia 0.10 UA negative blood culture so far negative Objective - Vital Signs Vital signs: Vital Signs Temp 99 F 03/13/24 07:11 Pulse 68 03/13/24 07:11 Resp 18 03/13/24 07:11 BP 139/66 03/13/24 07:11 Pulse Ox 91 L 03/13/24 07:11 FiO2 40 03/09/24 09:27 Intake & Output 03/12/24 03/13/24 03/13/24 18:59 06:59 18:59 Intake Total 400 Output Total 950 1000 Balance -550 -1000 Intake: Oral 400 Output: Urine 950 1000 Other: Voiding Method Toilet Toilet # Voids 2 # Bowel Movements 1 - Exam GENERAL DESCRIPTION: An elderly male up in the chair in no distress RESPIRATORY SYSTEM: Unlabored breathing , decreased breath sounds at bases HEART: S1 S2 regular rate and rhythm , ABDOMEN: Soft , no tenderness EXTREMITIES: No edema feet - Labs CBC & Chem 7: 03/12/24 05:33 03/09/24 06:36 Labs: Abnormal Lab Results - Last 24 Hours (Table) 03/13/24 Range/Units 02:48 PT 25.1 H (10.0-12.5) sec INR 2.5 H (<1.2) Microbiology - Last 24 Hours (Table) 03/11/24 21:31 Blood Culture - Preliminary Blood Assessment and Plan (1) Fever Status: Acute Code(s): R50.9 - FEVER, UNSPECIFIED SNOMED Code(s): 668708949 (2) Pneumonia Status: Acute Code(s): J18.9 - PNEUMONIA, UNSPECIFIED ORGANISM SNOMED Code(s): 903294300 (3) Penicillin allergy Status: Acute Code(s): Z88.0 - ALLERGY STATUS TO PENICILLIN SNOMED Code(s): 14616186 Plan: 1patient with a fever, in this patient with initial admission to the hospital after left hip replacement workup so far suggestive of right perihilar infiltrate suspicious for pneumonia as currently no other obvious focus with a UA negative abdominal soft on clinical examination and no evidence of cellulitis to the left hip surgical site. 2patient did have a penicillin allergy that will limit number of antibiotics safe to use. 3patient did have elevated CRP however procalcitonin has been normal ruling pneumonia to be less likely with etiology of the fever possibly postoperative and reactive, patient has already been discharged by the Ortho team and nursing staff is asking for discharge antibiotics we will consider short course of oral Ceftin on discharge prescription was sent however the patient has been advised if any recurrence of fever worsening respiratory symptoms or pain to the hip area that he will come back to the hospital right away Dictation was produced using [employer] dictation software. please excuse any gramma tical, word or spelling errors.
[2024-03-13 14:04] VITALS: BP 128/69; PULSE 63; RESP 17; TEMP 97.8
[2024-03-13] MEDS ORDERED: WARFARIN 2 MG TAB PO ONE (18:00)
--- NOTE | 2024-03-13 18:42 | P.PN ---
Subjective Patient is a pleasant 78 years old male with past medical history of multiple medical problems Was admitted by orthopedic team for his severe osteoarthritis of the left hip and he underwent total hip replacement on 03/09 Postoperatively patient developed fever of 101.2 on 03/11 No more fever after that The rest of vitals look stable Patient was started on cefepime. Today I saw him sitting in the chair, fully awake and oriented, looks comfortabl e not in distress, he says his pain is controlled He denies any respiratory symptoms for me no chest pain dyspnea or coughing. No any other specific complaints like no abdominal pain or vomiting or diarrhea. No dysuria urgency His surgical site looks healing and closed Patient was asking about his discharge today Labs reviewed showing WBC trending down 15 down to 11.2, hemoglobin 12, INR 2.1 Urine analysis was negative Pro- Calcitonin was negative as well at 0.10 CRP mildly elevated at 17.6 Chest x-ray per radiologist showing right perihilar patchy density suspicious for pneumonia Objective - Vital Signs Vital signs: Vital Signs Temp 99 F 03/13/24 07:11 Pulse 68 03/13/24 07:11 Resp 18 03/13/24 07:11 BP 139/66 03/13/24 07:11 Pulse Ox 91 L 03/13/24 07:11 FiO2 40 03/09/24 09:27 Intake & Output 03/12/24 03/13/24 03/13/24 18:59 06:59 18:59 Intake Total 400 Output Total 950 1000 Balance -550 -1000 Intake: Oral 400 Output: Urine 950 1000 Other: Voiding Method Toilet Toilet # Voids 2 # Bowel Movements 1 - Exam GENERAL: The patient is alert and oriented x3, not in any acute distress. Well developed, well nourished. HEENT: Pupils are round and equally reacting to light. EOMI. No scleral icterus. No conjunctival pallor. Normocephalic, atraumatic. No pharyngeal erythema. No thyromegaly. CARDIOVASCULAR: S1 and S2 present. No murmurs, rubs, or gallops. PULMONARY: Chest is clear to auscultation, no wheezing , no crackles. ABDOMEN: Soft, nontender, nondistended, normoactive bowel sounds. No palpable organomegaly. MUSCULOSKELETAL: No joint swelling or deformity. -EXTREMITIES: No cyanosis, clubbing, or pedal edema. Surgical wounds closed with dressing in place, rest of exam is deferred to surgery team NEUROLOGICAL: Gross neurological examination did not reveal any focal deficits. SKIN: No rashes. no petechiae. - Labs CBC & Chem 7: 03/12/24 05:33 03/09/24 06:36 Labs: Abnormal Lab Results - Last 24 Hours (Table) 03/13/24 Range/Units 02:48 PT 25.1 H (10.0-12.5) sec INR 2.5 H (<1.2) Microbiology - Last 24 Hours (Table) 03/12/24 05:30 Urine Culture - Final Urine,Voided 03/11/24 21:31 Blood Culture - Preliminary Blood Assessment and Plan Assessment: Osteoarthritis of the left hip, severe status post left MARY JANE on 03/09 Fever, could be postoperative fever x 1, pneumonia also suspected. Patient is currently covered with antibiotic Paroxysmal A-fib on Coumadin Status post TAVR with history of aortic stenosis Obesity with BMI of 37.8 Hypertension Mild leukocytosis, most likely reactive Plan: Patient is currently covered with antibiotic with cefepime, also infectious disease team were consulted Continue with pain management Continue with postop care Monitor INR while he is on warfarin. Goal INR is 2-3 GI and DVT prophylaxis Further recommendation based on the clinical course Thank you for consulting us, Dr. Sky will resume the care of the patient on 03/15
== END 2024-03-13 15:11 | disposition home health service (06) ==
LOC: OR 05:36 → 4SSUR 12:36 → OR 03-12 07:57
PROVIDERS: ATTEND Orthopaedic Surgery
DX: M16.12 Unilateral primary osteoarthritis, left hip (principal); J18.9 Pneumonia, unspecified organism; I10 Essential (primary) hypertension; G89.18 Other acute postprocedural pain; M10.9 Gout, unspecified; I48.0 Paroxysmal atrial fibrillation; E78.5 Hyperlipidemia, unspecified; M06.9 Rheumatoid arthritis, unspecified; G47.30 Sleep apnea, unspecified; Z87.891 Personal history of nicotine dependence; Z96.653 Presence of artificial knee joint, bilateral; Z95.3 Presence of xenogenic heart valve; Z88.0 Allergy status to penicillin; Z80.9 Family history of malignant neoplasm, unspecified
CPT/HCPCS: 94660; 94760; 97116; 97161; 97166; 64999; 80053; 85025; 85610 ×3; 85730; 73501; 27130; C1776; J2250; J1100; J0690 ×2; J2405; J2003; J0692 ×2; J3010; J2795; J2704

== ENCOUNTER → 2024-04-28 | Outpatient (CLI) | payer MEDICARE ==
--- NOTE | 2024-04-28 17:36 | MR ---
EXAMINATION TYPE: MR Prostate wo/w con DATE OF EXAM: 04/28/2024 COMPARISON: Prior prostate MRI January 30, 2022 INDICATION: Elevated PSA PSA: 8.00 ng/ml in February 2024 Recent Biopsy and Date: None Pathology Report (If Applicable): n/a TECHNIQUE: Examination was performed using a 3T MRI without an endorectal coil. Multiparametric imaging was perf ormed with T2 mutliplanar sequences, axial diffusion weighted imaging and dynamic contrast enhanced i maging, utilizing 11 mL intravenous Gadobutrol gadolinium contrast. FINDINGS: PROSTATE VOLUME: 5.4 cm SI x 4.1 cm AP x 5.3 cm LR Vol= 61.4 cc PSA DENSITY: 0.13 ng/ml/cc Enlarged prostate consistent with BPH. Bilateral peripheral zone shows some linear and wedge-shaped a reas of slight diminished signal on ADC mapping. No areas of marked diminished signal are identified. Transitional zone shows heterogeneity and bilateral small nodules without area of suspicious T2 hypo intense signal. No areas of increased signal on diffusion-weighted imaging. There is mild wall thickening and trabeculation of the urinary bladder. No destructive osseous lesion is present. IMPRESSION: Enlarged prostate consistent with BPH. No suspicious high risk lesions on Prostate MRI. N o significant change from prior MRI. Highest Assessment Category: 2 MRI Stage: T0 N0 M0 based on review of pelvic images. False negative rates for MRI range from 5-20% depending on risk profile. Assessment Categories: 1 ? Very low (clinically significant cancer is highly unlikely to be present) 2 ? Low (clinically significant cancer is unlikely to be present) 3 ? Intermediate (the presence of clinically significant cancer is equivocal) 4 ? High (clinically significant cancer is likely to be present) 5 ? Very high (clinically significant cancer is highly likely to be present) [facility], , 04/28/2024 5:33 PM
== END | disposition home or self-care (01) ==
LOC: RADMRIMAIN 07:38
PROVIDERS: ATTEND Urology
DX: N40.0 Benign prostatic hyperplasia without lower urinary tract symptoms (principal); R97.20 Elevated prostate specific antigen [PSA]
CPT/HCPCS: 72197; A9585

== ENCOUNTER → 2024-07-27 | Outpatient (CLI) | payer MEDICARE ==
--- NOTE | 2024-07-28 17:50 | CT ---
EXAMINATION TYPE: CT chest wo con DATE OF EXAM: 07/27/2024 7:46 AM COMPARISON: 01/16/2024 CLINICAL INDICATION: Male, 78 years old with history of R91.1 SOLITARY PULMONARY NODULE, Solitary Pul monary Nodule TECHNIQUE: Axial images were obtained at 5 mm thick sections. Reconstructed images are reviewed on Vigno computer in the coronal plane. Contrast used: mL of , (none if empty) Oral contrast used: (none if empty) CT DLP: 565 mGycm, Automated exposure control for dose reduction was used. FINDINGS: Portion of the thyroid visualized is normal. No suspicious lung nodules or focal infiltrates are present. Previous peripheral right middle lobe nodule has resolved. Thickening within the left major fissure h as also improved. No enlarged mediastinal or hilar adenopathy is evident. There are multiple small mediastinal lymph n odes present. These appear present previously The ascending aorta diameter at the level of the main pulmonary artery is 3.6 cm. The main pulmonary artery diameter at the bifurcation is 3.0 cm. Moderate coronary artery calcifications present. Limited CT sections are obtained through the upper abdomen. Abdomen is essentially unremarkable. IMPRESSION: 1. Resolution of previous right peripheral density. 2. Left lower lobe linear atelectasis or scarring appears improved. 3. No suspicious acute pulmonary changes. [facility], , 07/28/2024 5:48 PM
== END | disposition home or self-care (01) ==
LOC: RADCTMAIN 07:06
PROVIDERS: ATTEND Family Medicine
DX: R91.1 Solitary pulmonary nodule (principal)
CPT/HCPCS: 71250

== ENCOUNTER → 2024-07-29 | Outpatient (CLI) | payer MEDICARE ==
[2024-07-29 15:13] LABS: HCT 44.6 % (39.6-50.0); HGB 13.7 g/dL (13.0-17.0); MCH 28.7 pg (27.0-32.0); MCHC 30.7 g/dL (32.0-37.0); MCV 93.5 FL (80.0-97.0); NRBC Per 100 WBC 0 X 10*3/uL (0.00-0.01); Platelet Count 130 X 10*3/uL (140-440); RBC 4.77 X 10*6/uL (4.40-5.60); RDW 16.4 % (11.5-14.5); WBC 6.43 X 10*3/uL (4.50-10.00)
[2024-07-29 15:37] LABS: Blood Urea Nitrogen 39.5 mg/dL (9.0-27.0)
[2024-07-29 15:51] LABS: INR 1.89 sec (0.93-1.11); Prothrombin Time 20.6 sec (9.9-11.9)
== END | disposition home or self-care (01) ==
LOC: LABPAT 09:23
PROVIDERS: ATTEND Internal Medicine Interventional Cardiology
DX: Z01.812 Encounter for preprocedural laboratory examination (principal); R94.39 Abnormal result of other cardiovascular function study
CPT/HCPCS: 82565; 84520; 85027; 85610

== ENCOUNTER 2024-08-02 09:55 | Day surgery (SDC) | payer MEDICARE ==
[2024-07-29 14:29] VITALS: BMI 36.6
[~2024-08-02 09:55] MED LIST changes: +ALPRAZolam 0.25 MG TAB PO PRN; +ALPRAZolam 0.5 MG TAB PO PRN; +ASPIRIN 325 MG TAB PO ONE; +ATORVASTATIN 80 MG TAB PO ONE; +HEPARIN SODIUM,PORCINE (1 ML) 2,500 UNIT in SODIUM CHLORIDE 0.9% 250 ML IRRIGATION PRN; +HEPARIN SODIUM,PORCINE 10,000 UNIT in SODIUM CHLORIDE 0.9% 1,000 ML IRRIGATION PRN; +NITROGLYCERIN SL TABS 0.4 MG TAB SUBLINGUAL PRN; -TRANEXAMIC 1,000 MG/100ML-NACL 1,000 MG in SALINE 1 100ML.BAG IVPB PRN
[2024-08-02] MEDS: SODIUM CHLORIDE 0.9% 1,000 ML in EMPTY BAG 1 BAG IV SCH (10:27)
[2024-08-02] MEDS: IV FLUID CONTINUATION 1,000 ML IV ONE ×2 (10:31→15:00)
[2024-08-02 10:32] VITALS: RESP 18; TEMP 96.9
[2024-08-02 10:44] LABS: Basophils # (A) 0.07 10*3/uL (0.00-0.10); Eosinophils # (A) 0.23 10*3/uL (0.04-0.35); Eosinophils % (A) 3.2 %; HCT 45.8 % (39.6-50.0); HGB 14.9 g/dL (13.0-17.0); Lymphocytes # (A) 0.95 10*3/uL (0.90-5.00); Lymphocytes % (A) 13.2 %; MCH 29.8 pg (27.0-32.0); MCHC 32.5 g/dL (32.0-37.0); MCV 91.6 fL (80.0-97.0); Mean Platelet Volume 9.8 fL (9.5-12.2); Monocytes # (A) 0.68 10*3/uL (0.20-1.00); Monocytes % (A) 9.4 %; Neutrophils # (A) 5.24 10*3/uL (1.80-7.70); Neutrophils % (A) 72.8 %; Platelet Count 147 10*3/uL (140-440)
[2024-08-02 10:54] LABS: African American GFR (CKD) 66 (>60 ml/min/1.73 sqM); Anion Gap 5 mmol/L; Blood Urea Nitrogen 32 mg/dL (9-20); Calcium 9.9 mg/dL (8.4-10.2); Carbon Dioxide 28 mmol/L (22-30); Chloride 104 mmol/L (98-107); Glucose 103 mg/dL (74-99); Non-African American GFR(CKD) 57 (>60 ml/min/1.73 sqM); Potassium 4.7 mmol/L (3.5-5.1); Sodium 137 mmol/L (137-145)
[2024-08-02 11:05] LABS: INR 1.2 (<1.2); Prothrombin Time 13.2 sec (10.0-12.5)
[2024-08-02] MEDS: HEPARIN SODIUM,PORCINE 10,000 UNIT in SODIUM CHLORIDE 0.9% 1,000 ML IRRIGATION ONE (13:10)
[2024-08-02] MEDS: MIDAZOLAM 2 MG/2 ML VIAL IVP ONE (13:25)
[2024-08-02] MEDS: LIDOCAINE 1% INJ 10MG/ML (20 ML MDV) SQ ONE (13:27)
[2024-08-02] MEDS: HEPARIN SODIUM,PORCINE (1 ML) 2,500 UNIT in SODIUM CHLORIDE 0.9% 250 ML IRRIGATION ONE (13:30)
[2024-08-02] MEDS: VERAPAMIL SYRINGE (5 MG/10 ML) INTRAARTER ONE (13:32)
[2024-08-02] MEDS: fentaNYL (PF) 50 MCG/1 ML VIAL IVP ONE (13:32)
[2024-08-02] MEDS: HEPARIN SODIUM 1,000 UN/ML (10ML VL) IVP ONE (13:38)
[2024-08-02] MEDS: IOPAMIDOL-370 100ML BTL INJ ONE (13:41)
--- NOTE | 2024-08-02 13:51 | P.CARDCATH ---
Date of Procedure: 08/02/24 Description of Procedure: History: Patient was referred for cardiac catheterization to evaluate for CAD. This gentleman has history of aortic stenosis for which she underwent a bioprosthetic aortic valve replacement in 2013 at [facility]. He has multiple comorbid conditions in the form of paroxysmal atrial fibrillation maintaining sinus rhythm, hypertension hyperlipidemia obesity obstructive sleep apnea wears a CPAP. He was going for a scheduled right total hip arthroplasty had a Lexiscan stress test revealed a moderate area of reversible defect in the inferior lateral wall therefore was advised to cardiac catheterization after due discussion regarding risk benefits and options. He understood all details and wished to proceed with the procedure his Coumadin was held 3-1/2 days of Procedure Details: The risks, benefits, complications, treatment options, and expected outcomes were discussed with the patient. The patient and/or family concurred with the proposed plan, giving informed consent. Patient was brought to the catheter builder after IV hydration was begun and oral premedication was given. Patient was further sedated with midazolam. Patient was prepped and draped in the usual manner. Under strict aseptic precautions and local anesthesia a 6 Lao introducer was placed in the right radial artery. Using a JL 3/5 and a JR 4/0 catheters I performed coronary angiography and the same JR catheter was used to check LV pressures and LV gram was not performed. After the procedure was completed the sheaths and catheters were all removed. Hemostasis was achieved with TR band. Saturation in the fingers of the right hand was about 94%. Moderate conscious sedation time was 16 minutes. Patient's oxygen saturation hemodynamics and EKG were monitored closely. After the procedure was completed the sheaths and catheters were all removed. Hemostasis was achieved with Angio-Seal device/manual pressure and FemoStop. Findings: Hemodynamics: Left ventricle end-diastolic pressure was 17 mmHg without any significant gradient there was probably less than 10 mm pullback gradient. With the right coronary catheter the catheter went in very easily without effort Left Main: Short patent vessel no significant disease bifurcates into LAD and circumflex from LAD: Fair caliber fair distribution vessel supplies a fair amount of myocardium has minor irregularities. Gives off septal and diagonal branches no significant disease in the LAD system CIRC: Dominant vessel minor irregularities distally gives off a large PDA and 2 other smaller branches no significant disease RCA: Small nondominant if fairly selective injection no significant disease. Previous angiogram revealed no significant disease and it was a very small vessel LV: Not performed Closure Device: TR band Complications: None Estimated Blood Loss: Minimal Impression: This patient has a left dominant system. No significant gradient maybe less than 10 mmHg. Slightly elevated filling pressures no significant disease in the left system small nondominant RCA minor irregularities. Pre Procedure Diagnosis: Abnormal stress test with CAD Final Post Procedure Diagnosis: No significant CAD Recommendation: Continued medical therapy with risk factor modification will be discharged later on today and I will see him in the office this . Patient can proceed with the right total hip arthroplasty. Complications: None; patient tolerated the procedure well. Disposition: Pacu - hemodynamically stable. Condition: Stable Discharge Disposition: Discharge patient home later on today.
[2024-08-02] MEDS ORDERED: SODIUM CHLORIDE 0.9% 1,000 ML IV SCH (15:00)
[2024-08-02 17:11] VITALS: BP 129/61; PULSE 58
== END 2024-08-02 17:11 | disposition home or self-care (01) ==
LOC: CATHCVL 09:55
PROVIDERS: ATTEND Internal Medicine Interventional Cardiology
DX: I25.10 Atherosclerotic heart disease of native coronary artery without angina pectoris (principal); I35.0 Nonrheumatic aortic (valve) stenosis; I48.0 Paroxysmal atrial fibrillation; I10 Essential (primary) hypertension; E78.5 Hyperlipidemia, unspecified; E66.9 Obesity, unspecified; G47.33 Obstructive sleep apnea (adult) (pediatric); Z68.37 Body mass index [BMI] 37.0-37.9, adult; Z95.3 Presence of xenogenic heart valve; Z72.0 Tobacco use; Z88.0 Allergy status to penicillin; Z88.1 Allergy status to other antibiotic agents; Z79.02 Long term (current) use of antithrombotics/antiplatelets; Z79.899 Other long term (current) drug therapy
CPT/HCPCS: 93458; 80048; 85025; 85610; 99152; C1894; J2250; J1644 ×3; J2003; Q9967; J3010

== ENCOUNTER → 2024-08-10 | Outpatient (CLI) | payer MEDICARE ==
--- NOTE | 2024-08-10 14:47 | US ---
EXAMINATION TYPE: US kidneys/renal and bladder DATE OF EXAM: 08/10/2024 COMPARISON: NONE CLINICAL INDICATION: Male, 78 years old with history of R94.4 ABNORMAL RESULTS OF KIDNEY FUNCTION KELLEY DIES; Patient denies any signs, symptoms, or relevant history TECHNIQUE: Grayscale imaging of the bilateral kidneys and urinary bladder: FINDINGS: EXAM MEASUREMENTS: Right Kidney: 12.5 x 5.1 x 4.4 cm Left Kidney: 11.6 x 4.5 x 4.6 cm Post Void Residual Volume: NA mL Right Kidney: Simple cysts seen Left Kidney: wnl, no evidence for hydronephrosis, mass or renal calculus. Bladder: wnl Bilateral Jets seen: No Normal Post Void Residual: NA Prostate gland is enlarged with median lobe hypertrophy changes extending into the bladder lumen. There is no evidence for hydronephrosis at this point in time. No nephrolithiasis is seen. No leida s are identified. The urinary bladder is anechoic. IMPRESSION: 1. No evidence for obstructive uropathy or renal calculus. 2. Simple appearing right renal cyst present. No follow-up recommended. 3. Median lobe hypertrophy compatible with Prostatomegaly. [facility], , 08/10/2024 2:44 PM
== END | disposition home or self-care (01) ==
LOC: RADUSWWP 14:19
PROVIDERS: ATTEND Family Medicine
DX: N28.1 Cyst of kidney, acquired (principal); R94.4 Abnormal results of kidney function studies; N40.0 Benign prostatic hyperplasia without lower urinary tract symptoms
CPT/HCPCS: 76770

== ENCOUNTER → 2024-08-20 | Outpatient (CLI) | payer MEDICARE ==
[2024-08-20 09:45] LABS: INR 1.7 (<1.2); Prothrombin Time 17.2 sec (10.0-12.5)
[2024-08-20 15:13] LABS: HCT 42.2 % (39.6-50.0); HGB 13.2 g/dL (13.0-17.0); MCH 29.7 pg (27.0-32.0); MCHC 31.3 g/dL (32.0-37.0); MCV 94.8 FL (80.0-97.0); NRBC Per 100 WBC 0 X 10*3/uL (0.00-0.01); Platelet Count 182 X 10*3/uL (140-440); RBC 4.45 X 10*6/uL (4.40-5.60); RDW 15.7 % (11.5-14.5); WBC 7.61 X 10*3/uL (4.50-10.00)
[2024-08-20 15:35] LABS: BUN/Creat Ratio 25.24 Ratio (12.00-20.00); Blood Urea Nitrogen 42.9 mg/dL (9.0-27.0); Carbon Dioxide 26.1 mmol/L (21.6-31.8); Chloride 103 mmol/L (96-109); Glucose 120 mg/dL (70-110); Sodium 140 mmol/L (135-145)
[2024-08-20 15:36] LABS: ALT 9 U/L (10-49); AST 22 U/L (14-35); Albumin 3.6 g/dL (3.8-4.9); Alkaline Phosphatase 99 U/L (41-126); Calcium 9.4 mg/dL (8.7-10.3); Total Bilirubin 0.8 mg/dL (0.3-1.2); Total Protein 6.6 g/dL (6.2-8.2)
== END | disposition home or self-care (01) ==
LOC: LABPAT 08:50
PROVIDERS: ATTEND Orthopaedic Surgery
DX: Z22.322 Carrier or suspected carrier of Methicillin resistant Staphylococcus aureus (principal); Z01.818 Encounter for other preprocedural examination; M16.11 Unilateral primary osteoarthritis, right hip
CPT/HCPCS: 80053; 85027; 85610; 85730; 86850; 86900; 86901; 87070; 93005

== ENCOUNTER 2024-08-24 07:17 | Day surgery (SDC) | payer MEDICARE ==
[2024-08-18 14:36] VITALS: BMI 35.9
[~2024-08-24 07:17] MED LIST changes: -ALPRAZolam 0.25 MG TAB PO PRN; -ALPRAZolam 0.5 MG TAB PO PRN; -ASPIRIN 325 MG TAB PO ONE; -ATORVASTATIN 80 MG TAB PO ONE; -HEPARIN SODIUM,PORCINE (1 ML) 2,500 UNIT in SODIUM CHLORIDE 0.9% 250 ML IRRIGATION PRN; -HEPARIN SODIUM,PORCINE 10,000 UNIT in SODIUM CHLORIDE 0.9% 1,000 ML IRRIGATION PRN; +LIDOCAINE 1% (10MG/ML) FOR IV START INTRADERMA PRN; -NITROGLYCERIN SL TABS 0.4 MG TAB SUBLINGUAL PRN; +TRANEXAMIC 1,000 MG/100ML-NACL 1,000 MG in SALINE 1 100ML.BAG IVPB PRN; +fentaNYL (PF) 50 MCG/ML 2 ML AMP IVP PRN
[2024-08-24] MEDS: IV FLUID CONTINUATION 1,000 ML IV ONE (07:52)
[2024-08-24] MEDS: GABAPENTIN 300 MG CAP PO PRN (08:23)
[2024-08-24] MEDS: ACETAMINOPHEN TAB 500 MG TAB PO PRN (08:23)
[2024-08-24] MEDS: LACTATED RINGERS 1,000 ML IV SCH (08:23)
[2024-08-24] MEDS: MELOXICAM 7.5 MG TAB PO PRN (08:23)
[2024-08-24] MEDS: ONDANSETRON 4 MG/2 ML VIAL IVP ONE (08:24)
[2024-08-24] MEDS: DEXAMETHASONE SOD PHOSPHATE 4 MG/ML 1 ML VIAL IV ONE (08:24)
[2024-08-24 08:33] LABS: INR 1.4 (<1.2); Prothrombin Time 14.7 sec (10.0-12.5)
[2024-08-24] MEDS: MIDAZOLAM 2 MG/2 ML VIAL IV PRN (08:35)
[2024-08-24] MEDS ORDERED: MAGNESIUM HYDROXIDE 2,400 MG/30 ML CUP PO PRN (09:02)
[2024-08-24] MEDS ORDERED: NALOXONE 0.4 MG/ML 1 ML VIAL IV PRN (09:02)
[2024-08-24] MEDS ORDERED: HYDROmorphone 0.5 MG/0.5 ML SYRINGE IVP PRN ×2 (09:02)
[2024-08-24] MEDS ORDERED: ONDANSETRON 4 MG/2 ML VIAL IVP PRN (09:02)
[2024-08-24] MEDS ORDERED: HYDROcodone/APAP 7.5-325MG 1 EACH TAB PO PRN (09:05)
--- NOTE | 2024-08-24 09:06 | P.ANPRN ---
Procedure Note - Anesthesia - Nerve Block Performed Right Alfredito Single Time Out Performed: Yes Date of Procedure: 08/24/24 Procedure Start Time: 08:34 Procedure Stop Time: 08:45 Location of Patient: PreOp Indication: Requested by Surgeon Specifically requested for management of pain by DrLorena: Heriberto Nogueira Sedation Type: Sedate with meaningful contact maintained Preparation: Sterile Prep Position: Supine Needle Gauge: 20 Ultrasound used to visualize needle placement: Yes Ultrasound used to observe medication spread: Yes Injectate: 0.5% Ropivacaine (see comment for volume) Blood Aspirated: No Pain Paresthesia on Injection Noted: No Resistance on Injection: Normal Image Stored and Saved: Yes Events: Uneventful and Well Tolerated (30 ml plus decadrone 4 mg)
[2024-08-24] MEDS: ROPIVACAINE 5 MG/ML 30 ML VIAL MISCELLANE ONE ×2 (09:21→10:56)
[2024-08-24] MEDS ORDERED: TRANEXAMIC 1,000 MG/100ML-NACL PREMIX BAG ONE (09:27)
[2024-08-24] MEDS ORDERED: NEOSTIGMINE 1 MG/ML 10 ML VIAL ONE (09:27)
[2024-08-24] MEDS ORDERED: DEXAMETHASONE SOD PHOSPHATE 4 MG/ML 1 ML VIAL ONE (09:27)
[2024-08-24] MEDS ORDERED: LIDOCAINE 1% INJ 10MG/ML (20 ML MDV) ONE (09:27)
[2024-08-24] MEDS ORDERED: WATER FOR INJECTION, STERILE 10 ML VIAL IV ONE (09:27)
[2024-08-24] MEDS ORDERED: ROCURONIUM 10 MG/ML (5 ML VIAL) IV ONE (09:27)
[2024-08-24] MEDS ORDERED: fentaNYL (PF) 50 MCG/ML 2 ML AMP ONE (09:27)
[2024-08-24] MEDS ORDERED: PROPOFOL 10 MG/ML 20 ML VIAL IV ONE (09:27)
[2024-08-24] MEDS ORDERED: ePHEDrine 50 MG/ML 1 ML VIAL ONE (09:27)
[2024-08-24] MEDS ORDERED: SUCCINYLCHOLINE CHLORIDE 200 MG/10 ML VIAL IV ONE (09:27)
[2024-08-24] MEDS ORDERED: ROPIVACAINE 5 MG/ML 30 ML VIAL ONE (09:27)
[2024-08-24] MEDS ORDERED: GLYCOPYRROLATE 0.2 MG/ML 2 ML VIAL ONE (09:27)
[2024-08-24] MEDS ORDERED: PHENYLEPHRINE-0.9% NACL SYG 1,000 MCG/10 ML SYRINGE ONE (09:27)
[2024-08-24] MEDS: ceFAZolin 1,000 MG in SODIUM CHLORIDE 0.9% 1,000 ML IRRIGATION ONE (09:32)
[2024-08-24] MEDS: ceFAZolin 2 GM in DEXTROSE 5% IN WATER 50 ML IVPB PRN (09:32)
--- NOTE | 2024-08-24 10:59 | P.OP ---
Date of Procedure: 08/24/24 Preoperative Diagnosis: Severe osteoarthritis right hip Postoperative Diagnosis: Severe osteoarthritis right hip Procedure(s) Performed: Right total hip arthroplasty with a direct anterior approach Implants: [employer] Polarstem standard size 8 with a collar [employer] R3, 3 hole hemispherical acetabular shell, 52 mm [employer] Reflection 6.5 mm cancellus screw, 20 mm, 25 mm [employer] OR30, 40 mm ID, 52 mm OD, Oxinium dual mobility liner [employer] OR30, 28 mm ID, 40 mm OD, +4, XLPE Dual mobility insert [employer] Oxinium femoral head 22 m, +0 All components were press-fit. The articulation is Oxinium on polyethylene. Anesthesia: YULIETA Surgeon: Heriberto Nogueira Head Golf Professional #1: Kassandra Padilla Estimated Blood Loss (ml): 400 Pathology: none sent Condition: stable Disposition: PACU Indications for Procedure: After failure of conservative treatment we discussed the surgical and nonsurgical treatment options at length. Patient wishes to proceed with a total hip arthroplasty with a direct anterior approach. Complications specific to this procedure were discussed at length, including but not limited to infection, leg length discrepancy, dislocation, nerve injury, and fracture. Covid-19 was also discussed at length with the patient, and they are aware of the current policies and procedures. The patient was given the option of delaying surgery, but they elect to proceed knowing these risks. Patient is aware of all these complications and informed consent was obtained Operative Findings: The operative findings are consistent with severe osteoarthritis of the right hip Description of Procedure: The patient was seen and evaluated in the preoperative area and the consent was reviewed. The operative site was marked with a skin marker. The patient verified the procedure and operative site. A NEREYDA block was placed by anesthesia in the preoperative area. The patient was then brought to the operati ng room and given preoperative antibiotics intravenously. 1 g of Tranexamic acid was also given intravenously. A general anesthetic was administered by the anesthesia department. The patient was then placed on the [place] table with the bony prominences well-padded. The hip area was then prepped with a ChloraPrep solution and draped in the usual sterile fashion. A universal timeout was then performed, which confirmed the patient's name, surgical site, ALLERGIES, and procedure being performed on the consent. Next the incision site was located at 1 cm distal and 4 cm lateral to the anterior superior iliac spine. The skin and subcutaneous tissues were sharply incised. Incision was carefully dissected down to the fascia overlying the tensor fascia betsey muscle. This fascia was then incised in line with the muscle fibers. Care was taken to stay laterally in order to avoid injuring the lateral femoral cutaneous nerve. Next, using blunt finger dissection, the tensor fascia betsey muscle was dissected off its investing fascia. The muscle was then carefully retracted laterally with a cobra retractor over the lateral neck of the femur. Next, the circumflex vessels were identified and cauterized using the Aquamantis device. The anterior hip capsule was then exposed. The capsule was then opened and an inverted T fashion. The retractors were then placed intracapsularly. The retractors were maintained intracapsular throughout the procedure. The proximal femur was then visualized. Fluoroscopic x-rays were then taken in order to evaluate the preoperative leg lengths. A small amount of traction was placed on the leg. The femoral neck was then osteotomized at the appropriate level above the lesser trochanter. A small wedge of bone was then removed from the remaining femoral head. Next, using a corkscrew the femoral head was removed from the acetabulum. On gross visual inspection, the femoral head had complete loss of articular cartilage and multiple periarticular osteophytes. The femoral head was then measured. Attention was then turned to the acetabulum. The acetabulum was exposed and any remaining labrum was excised. Sequential reaming of the acetabulum was performed using fluoroscopic guidance until there was a good bed of bleeding cancellus bone. When the appropriate size was reached, a trial was then placed. The position and fit of the trial was checked with fluoroscopy. The trial was then removed. Then, using fluoroscopic guidance, the final implant was impacted at 20 of anteversion and 40 of abduction, and fully seated in the acetabulum. 2 screws were then placed in the acetabulum. Again fluoroscopy was used to check position of the screws. Next, the liner was then impacted, with a 20 elevated liner located in the anterior superior quadrant. Component locking was confirmed. Attention was then directed to the femur. With the aid of the [place]view table, the femur was externally rotated to approximately 130, extended, and adducted under the opposite leg. A side hook was then placed under the proximal femur, and the side hook elevator was used to elevate the proximal femur while releasing the capsule. Retractors were then placed. A capsular release was performed, as well as a release of the conjoined tendon, which afforded excellent visualization of the proximal femur. Next, a box osteotome was used to lateralize the proximal femur. A rig hand was then used to locate the femoral canal. Sequential broaching was then performed with appropriate size which afforded excellent fixation in the proximal femur. A trial was then placed with appropriate head and neck, and the hip was gently reduced with the aid of the [place] table. Fluoroscopy was then used to check position of the components, as well as to evaluate the leg lengths and offset. The leg lengths and offset were measured as closely as possible to ensure stability of the hip. The hip was then gently dislocated and the trials were then removed. Final implants were then impacted and the hip was again reduced. Final fluoroscopic x-rays confirmed that the components were in anatomic position. The leg lengths and offset were measured and were found to coincide with the trial measurements. The hip was also taken through range of motion, and found to be stable. The hip was then copiously irrigated with antibiotic solution with pulsatile lavage. The hip was then irrigated with Irrisept solution. The soft tissues were then injected with a ropivacaine solution. A second dose of 1 g of Tranexamic acid was also given intravenously. The fascia was then closed with 2-0 strata fix suture. The subcutaneous tissue was closed with 3-0 Vicryl. The subcuticular tissue was closed with 3-0 moncryl suture. The skin was then closed with Exofin skin glue. After the glue and dried, and Optifoam silver impregnated dressing was applied. The patient was then transferred to the recovery room in stable condition. The medical services assistant AC Nash was required due to the complexity of surgery, and the need for skilled director surgical for positioning, draping, exposure, retraction, and closure of the wound.
--- NOTE | 2024-08-24 11:12 | XR ---
EXAMINATION TYPE: XR Hip Limited RT, FL guidance operating room Intraoperative/procedural fluoroscopi c services were provided. CLINICAL INDICATION:Male, 78 years old with history of RT ATNERIOR HIP; , [facility] FINDINGS: Postsurgical changes from right hip total arthroplasty. Hardware appears intact with appropriate alig nment. Prior left hip arthroplasty changes. No radiographic evidence for complication. Total fluoroscopy time is 24.9 seconds. DAP: 1.9390 Gycm2 Please see the operative/procedural note for further details. [facility], , 08/24/2024 11:10 AM
--- NOTE | 2024-08-24 11:52 | XR ---
EXAMINATION TYPE: XR Hip Limited RT DATE OF EXAM: 08/24/2024 11:46 AM INDICATION: Patient age:Male; 78 years old; Reason for study: Status post hip surgery, assess surgical alignment; PHH. pain COMPARISON: Fluoroscopic images of the right hip from earlier today TECHNIQUE: The right hip was examined in single frontal projection. FINDINGS: Postsurgical changes from right total hip arthroplasty. Hardware appears intact with approp riate alignment. There is associated soft tissue gas and edema. No acute fracture or dislocation. Vas cular sclerosis demonstrated. IMPRESSION: Postsurgical changes from right total hip arthroplasty. Hardware appears intact with appropriate alig nment. [facility], , 08/24/2024 11:50 AM
[2024-08-24] MEDS: HYDROmorphone 0.5 MG/0.5 ML SYRINGE IVP PRN ×2 (11:57→15:31)
[2024-08-24] MEDS: ceFAZolin 2 GM in DEXTROSE 5% IN WATER 50 ML IVPB SCH (15:32)
[2024-08-24] MEDS: SODIUM CHLORIDE 0.9% 1,000 ML IV SCH (17:42)
[2024-08-24] MEDS: HYDROcodone/APAP 7.5-325MG 1 EACH TAB PO PRN (17:50)
[2024-08-24] MEDS: WARFARIN 3 MG TAB PO ONE (17:51)
[2024-08-24 19:48] VITALS: RESP 17
[2024-08-24] MEDS: SENNOSIDES-DOCUSATE SODIUM 1 EACH TAB PO SCH (20:43)
[2024-08-25] MEDS ORDERED: HYDROcodone/APAP 7.5-325MG 1 EACH TAB PO PRN (08:08)
[2024-08-25 08:21] VITALS: BP 122/66; PULSE 81; TEMP 97.9
[2024-08-25 08:41] LABS: Basophils # (A) 0.03 X 10*3/uL (0.00-0.10); Basophils % (A) 0.2 %; Eosinophils # (A) 0 X 10*3/uL (0.04-0.35); Eosinophils % (A) 0 %; HCT 36.9 % (39.6-50.0); HGB 11.7 g/dL (13.0-17.0); Lymphocytes # (A) 0.49 X 10*3/uL (0.90-5.00); Lymphocytes % (A) 2.9 %; MCH 29.7 pg (27.0-32.0); MCHC 31.7 g/dL (32.0-37.0); MCV 93.7 FL (80.0-97.0); Mean Platelet Volume 10.5 FL (9.5-12.2); Monocytes # (A) 1.13 X 10*3/uL (0.20-1.00); Monocytes % (A) 6.8 %; NRBC Per 100 WBC 0 X 10*3/uL (0.00-0.01); Neutrophils # (A) 14.99 X 10*3/uL (1.80-7.70); Neutrophils % (A) 89.6 %; Platelet Count 162 X 10*3/uL (140-440); RBC 3.94 X 10*6/uL (4.40-5.60); RDW 15.5 % (11.5-14.5); WBC 16.73 X 10*3/uL (4.50-10.00)
--- NOTE | 2024-08-25 08:54 | P.CONS ---
History of Present Illness - Reason for Consult Consult date: 08/25/24 - Chief Complaint Right hip pain. - History of Present Illness The patient is here essentially for hip arthroplasty. The patient has underlying history hypertension hyperlipidemia. Medications will be reconciled. He is seen postoperative day 1 doing well. No chest pain no voiding difficulties. No numbness. The patient has an underlying history of atrial fibrillation which is stable. Review of Systems Constitutional: Denies chills, Denies fever Eyes: denies blurred vision, denies pain Ears, nose, mouth and throat: Denies headache, Denies sore throat Cardiovascular: Denies chest pain, Denies shortness of breath Respiratory: Denies cough Gastrointestinal: Denies abdominal pain, Denies diarrhea, Denies nausea, Denies vomiting Past Medical History Past Medical History: Atrial Fibrillation, Hyperlipidemia, Hypertension, Musculoskeletal Disorder, Osteoarthritis (OA), Prostate Disorder, Rheumatoid Arthritis (RA), Sleep Apnea/CPAP/BIPAP Additional Past Medical History / Comment(s): heart murmur, uses CPAP History of Any Multi-Drug Resistant Organisms: None Reported Past Surgical History: Appendectomy, Back Surgery, Cardiac Valve Replacement, Heart Catheterization, Joint Replacement, Orthopedic Surgery Additional Past Surgical History / Comment(s): naldo knee replacement, shoulder rotator cuff-unsure which side, naldo carpal tunnel, naldo carotid endarterectomy, left ankle fusion, aortic valve replacement(bovine), ant [facility] 03/09/2024 Past Anesthesia/Blood Transfusion Reactions: Previous Problems w/ Anesthesia Additional Past Anesthesia/Blood Transfusion Reaction / Comm: diff intubation- have to use small tube per spouse Past Psychological History: No Psychological Hx Reported Smoking Status: Former smoker Past Alcohol Use History: None Reported Additional Past Alcohol Use History / Comment(s): quit smoking 30 yrs. ago, 1ppd started as a teen Past Drug Use History: None Reported - Past Family History Mother Family Medical History: Cancer Brother(s) Family Medical History: Cancer Sister(s) Family Medical History: Cancer Medications and Allergies Home Medications Medication Instructions Recorded Confirmed Type Etanercept [Enbrel] 50 mg SQ TH 11/10/13 08/24/24 History Tamsulosin HCl [Flomax] 0.4 mg PO BID 11/10/13 08/24/24 History Metoprolol Succinate [Toprol XL] 0.5 tab PO HS 11/18/16 08/24/24 History Simvastatin [Zocor] 20 mg PO HS 09/02/19 08/24/24 History Warfarin [Coumadin] 1 mg PO MOWEFR 09/02/19 08/18/24 History Warfarin [Coumadin] 2 mg PO SUTUTHSA 09/02/19 08/18/24 History hydroCHLOROthiazide [Hydrodiuril] 25 mg PO DAILY 09/02/19 08/24/24 History Amiodarone [Cordarone] 200 mg PO QAM 08/15/22 08/24/24 History HYDROcodone/APAP 7.5-325MG [[place] 1 tab PO Q6HR PRN 08/15/22 08/24/24 History 7.5-325] Losartan Potassium 100 mg PO QAM 08/15/22 08/24/24 History allopurinoL [Zyloprim] 100 mg PO DAILY 08/15/22 08/24/24 History Furosemide [Lasix] 40 mg PO DAILY 03/03/24 08/24/24 History Magnesium(Unknown Dose) 1 tab PO HS 03/03/24 08/24/24 History Isosorbide Mononitrate ER [Imdur] 30 mg PO DAILY 08/18/24 08/24/24 History HYDROcodone/APAP 7.5-325MG [[place] 1 - 2 tab PO Q6H PRN #32 tab 08/24/24 Rx 7.5-325] Sennosides [Senokot] 2 tab PO DAILY PRN #60 tablet 08/24/24 Rx Allergies Allergy/AdvReac Type Severity Reaction Status Date / Time Penicillins Allergy Rash/Hives Verified 08/24/24 08:04 Physical Exam Vitals: Vital Signs Temp Pulse Resp BP Pulse Ox 08/25/24 08:00 97.9 F 81 17 122/66 92 L 08/25/24 00:47 98.3 F 65 17 124/61 94 L 08/24/24 19:04 98.0 F 79 17 150/70 95 08/24/24 14:00 97.5 F L 84 129/61 08/24/24 13:30 81 18 124/61 93 L 08/24/24 13:00 82 20 115/58 93 L 08/24/24 12:30 77 18 101/50 91 L 08/24/24 12:16 81 16 103/46 94 L 08/24/24 12:01 77 16 102/49 96 08/24/24 11:46 78 16 102/64 96 08/24/24 11:31 97.2 F L 88 14 91/42 91 L Intake and Output 08/24/24 08/25/24 08/25/24 22:59 06:59 14:59 Intake Total 200 Output Total 700 Balance -500 Intake: Oral 200 Output: Urine 700 Other: Voiding Method Toilet Urinal # Voids 2 Weight 120.4 kg - Constitutional General appearance: cooperative, no acute distress - EENT Eyes: EOMI - Neck Neck: no lymphadenopathy - Respiratory Respiratory: bilateral: CTA - Cardiovascular Rhythm: irregularly irregular Heart sounds: normal: S1, S2 Abnormal Heart Sounds: no S3 Gallop - Gastrointestinal General gastrointestinal: soft, no tenderness - Integumentary Integumentary: no cyanotic - Neurologic Neurologic: CNII-XII intact Results CBC & Chem 7: 08/25/24 03:08 Labs: Abnormal Lab Results - Last 24 Hours (Table) 08/25/24 Range/Units 03:08 WBC 16.73 H (4.50-10.00) X 10*3/uL RBC 3.94 L (4.40-5.60) X 10*6/uL Hgb 11.7 L (13.0-17.0) g/dL Hct 36.9 L (39.6-50.0) % MCHC 31.7 L (32.0-37.0) g/dL RDW 15.5 H (11.5-14.5) % Immature Gran # 0.09 H (0.00-0.04) X 10*3/uL Neutrophils # 14.99 H (1.80-7.70) X 10*3/uL Lymphocytes # 0.49 L (0.90-5.00) X 10*3/uL Monocytes # 1.13 H (0.20-1.00) X 10*3/uL Eosinophils # 0 L (0.04-0.35) X 10*3/uL Assessment and Plan (1) S/P total right hip arthroplasty Current Visit: Yes Status: Acute Code(s): Z96.641 - PRESENCE OF RIGHT ARTIFICIAL HIP JOINT SNOMED Code(s): 905726480851 (2) Atrial fibrillation Current Visit: No Status: Acute Code(s): I48.91 - UNSPECIFIED ATRIAL FIBRILLATION SNOMED Code(s): 48975961 (3) Hypertension Current Visit: No Status: Acute Code(s): I10 - ESSENTIAL (PRIMARY) HYPERTENSION SNOMED Code(s): 94012013 (4) Valvular heart disease Current Visit: No Status: Acute Code(s): I38 - ENDOCARDITIS, VALVE UNSPECIFIED SNOMED Code(s): 024145 Plan: Reconcile medications from home. Pain control per orthopedics. Vitals are stable. Anticipate discharge later today. Time with Patient: Less than 30
[2024-08-25] MEDS: FUROSEMIDE 40 MG TAB PO SCH (09:33)
[2024-08-25] MEDS: allopurinoL 100 MG TAB PO SCH (09:33)
[2024-08-25] MEDS: hydroCHLOROthiazide 25 MG TAB PO SCH (09:33)
[2024-08-25] MEDS: ISOSORBIDE MONONITRATE ER 30 MG TAB.ER.24H PO SCH (09:33)
[2024-08-25] MEDS: TAMSULOSIN 0.4 MG CAP.ER.24H PO SCH (09:33)
[2024-08-25] MEDS: AMIODARONE 200 MG TAB PO SCH (09:33)
[2024-08-25] MEDS: LOSARTAN 50 MG TAB PO SCH (09:33)
--- NOTE | 2024-08-25 10:01 | P.DS ---
Providers Expected date of discharge: 08/25/24 Attending physician: Heriberto Nogueira Consults: 08/24/24 09:02 Consult Physician Routine Consulting Provider: Elver Sky Consult Reason/Comments: medical management Do you want consulting provider notified?: Yes Primary care physician: Elver Sky - Discharge Diagnosis(es) (1) Osteoarthritis of right hip Current Visit: Yes Status: Acute (2) S/P total right hip arthroplasty Current Visit: Yes Status: Acute Assessment: This is an 78-year-old male with known history of degenerative arthritis of the right hip. The patient presented for evaluation as an outpatient. After discussion and consideration patient elects to proceed with total hip arthroplasty. The patient is seen preoperatively by Dr. Nogueira and medically cleared for surgery by their primary care physician. Patient is admitted to [facility] on 08/24/2024 for total hip arthroplasty. The procedure is performed without complication or sequelae. The patient is doing well postoperatively. Labs and vital signs are stable on day of discharge. On day of discharge patient's hip incision is healing well. There is minimal erythema. There is no drainage noted at this time. There is minimal soft tissue swelling to the hip and thigh. Patient has full foot and ankle motion without difficulty or pain. Calf is soft and nontender to palpation. Neurovascular status to the right lower extremity is intact. Patient is discharged home in good condition. Please see med rec for accurate list of home medications. Plan - Discharge Summary Discharge Rx Participant: No New Discharge Prescriptions: New HYDROcodone/APAP 7.5-325MG [[place] 7.5-325] 1 - 2 tab PO Q6H PRN #32 tab PRN Reason: Pain Sennosides [Senokot] 2 tab PO DAILY PRN #60 tablet PRN Reason: Constipation No Action Tamsulosin HCl [Flomax] 0.4 mg PO BID Etanercept [Enbrel] 50 mg SQ TH Metoprolol Succinate [Toprol XL] 0.5 tab PO HS hydroCHLOROthiazide [Hydrodiuril] 25 mg PO DAILY Warfarin [Coumadin] 1 mg PO MOWEFR Warfarin [Coumadin] 2 mg PO SUTUTHSA Simvastatin [Zocor] 20 mg PO HS Amiodarone [Cordarone] 200 mg PO QAM HYDROcodone/APAP 7.5-325MG [[place] 7.5-325] 1 tab PO Q6HR PRN PRN Reason: Pain allopurinoL [Zyloprim] 100 mg PO DAILY Losartan Potassium 100 mg PO QAM Furosemide [Lasix] 40 mg PO DAILY Magnesium(Unknown Dose) 1 tab PO HS Isosorbide Mononitrate ER [Imdur] 30 mg PO DAILY Discharge Medication List Etanercept [Enbrel] 50 mg SQ TH 11/10/13 [History] Tamsulosin HCl [Flomax] 0.4 mg PO BID 11/10/13 [History] Metoprolol Succinate [Toprol XL] 0.5 tab PO HS 11/18/16 [History] Simvastatin [Zocor] 20 mg PO HS 09/02/19 [History] Warfarin [Coumadin] 1 mg PO MOWEFR 09/02/19 [History] Warfarin [Coumadin] 2 mg PO SUTUTHSA 09/02/19 [History] hydroCHLOROthiazide [Hydrodiuril] 25 mg PO DAILY 09/02/19 [History] Amiodarone [Cordarone] 200 mg PO QAM 08/15/22 [History] HYDROcodone/APAP 7.5-325MG [[place] 7.5-325] 1 tab PO Q6HR PRN 08/15/22 [History] Losartan Potassium 100 mg PO QAM 08/15/22 [History] allopurinoL [Zyloprim] 100 mg PO DAILY 08/15/22 [History] Furosemide [Lasix] 40 mg PO DAILY 03/03/24 [History] Magnesium(Unknown Dose) 1 tab PO HS 03/03/24 [History] Isosorbide Mononitrate ER [Imdur] 30 mg PO DAILY 08/18/24 [History] HYDROcodone/APAP 7.5-325MG [[place] 7.5-325] 1 - 2 tab PO Q6H PRN #32 tab 08/24/24 [Rx] Sennosides [Senokot] 2 tab PO DAILY PRN #60 tablet 08/24/24 [Rx] Follow up Appointment(s)/Referral(s): Heriberto Nogueira DO [Doctor of Osteopathic Medicine] - 09/03/24 1:20 pm (with Kassandra) Activity/Diet/Wound Care/Special Instructions: Weightbearing as tolerated with walker. Leave dressing intact. Dressing may be removed by home care nurse or by patient in 7 days. Then change dressing twice daily until follow up. May shower with initial dressing intact and after removal. If dressing become saturated, please remove. Please resume Coumadin. Recommend use of compression stockings daily until follow up to help prevent swelling and blood clots. May remove at night before sleeping. Please follow-up with [facility] in 2 weeks and call with any questions or concerns, . Discharge Disposition: HOME WITH HOME HEALTH SERVICES
[2024-08-25 10:51] LABS: INR 1.27 sec (0.93-1.11)
[2024-08-25] MEDS ORDERED: WARFARIN 3 MG TAB PO ONE (18:00)
[2024-08-25] MEDS ORDERED: METOPROLOL SUCCINATE (ER) 25 MG TAB.ER.24H PO SCH (21:00)
[2024-08-25] MEDS ORDERED: ATORVASTATIN 10 MG TAB PO SCH (21:00)
[2024-08-26] MEDS ORDERED: ETANERCEPT 50 MG/ML SQ SCH (08:08)
== END 2024-08-25 13:02 | disposition home health service (06) ==
LOC: OR 07:17 → 4SSUR 11:25 → OR 08-25 13:02
PROVIDERS: ATTEND Orthopaedic Surgery
DX: M16.11 Unilateral primary osteoarthritis, right hip (principal); I48.91 Unspecified atrial fibrillation; I10 Essential (primary) hypertension; E78.5 Hyperlipidemia, unspecified; G47.30 Sleep apnea, unspecified; Z90.49 Acquired absence of other specified parts of digestive tract; Z96.653 Presence of artificial knee joint, bilateral; Z95.3 Presence of xenogenic heart valve; Z87.891 Personal history of nicotine dependence; Z88.0 Allergy status to penicillin; Z79.01 Long term (current) use of anticoagulants; Z79.899 Other long term (current) drug therapy
CPT/HCPCS: 97161; 97535; 97166; 64473; 85025; 85610 ×2; 73501; 27130; C1776; J2250; J1100; J0690 ×3; J2405; J2795; J1171